=== PATIENT | female | born 1950 | race Caucasian/White ===

== ENCOUNTER 2019-08-23 09:58 | Observation (INO) ==
[2019-08-23 10:02] VITALS: BMI 16.9
[2019-08-23] MEDS ORDERED: XOPENEX 1.25 MG/3 ML NEBULE NEB ONE ×2 (10:21→10:28)
--- NOTE | 2019-08-23 10:30 | DR.NAUSEAF ---
HPI Time Seen Time Seen by Provider: 08/23/19 10:09 Primary Care Physician Primary Care Physician: NFD Complaints Chief Complaint:: PT. C/O NAUSEA/VOMITING INTERMITTENLY X 2 MONTHS. N/V AND ABDOMINAL PAIN BEGAN AGAIN ON THURSDAY. PT. C/O SHORTNESS OF BREATH AND COUGH X 2 WEEKS. PT. WAS TESTED FOR COVID-19 YESTERDAY. SPOUSE STATES SHE IS NOT GETTING ANY BETTER. PT. HAS BEEN TAKING NAUSEA MEDICATION WITH NO IMPROVEMENT. COVID-19 Coronavirus risk:travel/contact w/high risk person: No Has patient experienced Coronavirus symptoms: Yes Coronavirus symptoms experienced: Coughing and Shortness of Breath Source History Provided: Patient Mode of Arrival Mode of Arrival: Ambulatory Timing Onset of Chief Complaint: 06/24/19 PMH PMH Past Medical History: Yes Past Medical History: Anxiety, Depression, GERD and Hypertension Past Surgical History: Yes Surgical History: Hysterectomy Family History History of Family Medical Conditions: No Social History Does patient currently use any type of tobacco product: Yes Have you used tobacco products in the last 12 months: Yes Type of Tobacco Use: Cigarettes Does any household member use tobacco: Yes Alcohol Use: None Do you use any recreational Drugs:: No Lives With: Spouse Lives Where: Home Travel Risk Coronavirus risk:travel/contact w/high risk person: No Has patient experienced Coronavirus symptoms: Yes Coronavirus symptoms experienced: Coughing and Shortness of Breath Infectious screening In the last 2 months have you had wt loss of >10#?: NO Have you had fever, night sweats or hemotysis?: No Have you traveled outside the country in the last 6 months?: No Isolation: Droplet ROS Review of Systems Constitutional: Weakness Eyes: No Symptoms Reported ENTM: No Symptoms Reported Respiratoy: Non-Productive Cough Cardiovascular: No Symptoms Reported Gastrointestinal/Abdominal: No Symptoms Reported, See HPI, Abdominal Pain, Con stipation and Nausea Genitourinary: No Symptoms Reported Neurological: Depressed Musculoskeletal: No Symptoms Reported Integumentary: No Symptoms Reported Hematologic/Lymphatic: No Symptoms Reported Endocrine: No Symptoms Reported Psychiatric: No Symptoms Reported, See HPI, Anxiety, Hallucinations, Excessive crying, Suicidal and Other All Other Systems: Reviewed and Negative PE Vital Signs Vitals: Temperature 98.4 F Pulse Rate 83 Respiratory Rate 17 Blood Pressure [Left Arm] 139/78 Blood Pressure 140/76 O2 Sat by Pulse Oximetry 96 General General Appearance: Alert, In No Apparent Distress and Anxious Head Head Exam: Normal Inspection and Atraumatic Eyes Eye exam: Normal Appearance, PERRL and EOMI ENT ENT Exam: Normal Exam and Normal Oropharynx Neck Neck Exam: Normal Inspection, Full ROM and Trachea Midline Chest Chest Inspection: Normal Inspection and Symmetric Chest Wall Rise Respiratory Respiratory Exam: Normal Lung Sounds Bilat Respiratory Exam: Bilateral: Clear to Auscultation Cardiovascular Cardiovascular Exam: Regular Rate Abdominal Exam Abdominal Exam: Normal Inspection, Normal Bowel Sounds and Soft; negative Distention, Tenderness and Guarding Rectal Rectal Exam: Deferred External Exam: Female: Deferred : Speculum Exam (Female): Deferred : Bimanual Exam (female): Deferred Extremities Extremities Exam: Normal Inspection and Full ROM Back Back Exam: Normal Inspection Neurologic Neurological Exam: Alert, Oriented X3 and CN II-XII Intact Psychiatric Psychiatric Exam: Depressed Skin Skin Exam: Warm and Normal Color MDM Differential Diagnosis Differential Diagnosis: Considerations may Include:: Gastritis, Gastroenteritis, Inflammatory BD and Pancreatitis COURSE Reevaluation 1st: Improved 2nd: Unchanged 3rd: Unchanged Consultation Called: 13:49 Call Returned: 13:49 Consultation Comments: Case discussed with DR. JEREZ place in observation and get sonogram of GB. Give IVF Education/Counseling Education/Counseling: Patient and Family Educated On: Treatment and Diagnosis ROR Labs Reviewed Result Diagrams: 08/23/19 10:30 08/23/19 10:30 Laboratory: WBC 13.6 X10^3/uL (3.6-10.0) H 08/23/19 10:30 RBC 4.75 X10^6/uL (3.5-5.4) 08/23/19 10:30 Hgb 13.1 g/dL (12.0-16.0) 08/23/19 10:30 Hct 39.9 % (36.0-47.0) 08/23/19 10:30 MCV 84.1 fL (80.0-100.0) 08/23/19 10:30 MCH 27.6 pg (27.0-34.0) 08/23/19 10:30 MCHC 32.8 g/dL (33.0-35.0) L 08/23/19 10:30 RDW 16.7 % (11.6-16.5) H 08/23/19 10:30 Plt Count 499 X10^3/uL (150.0-450.0) H 08/23/19 10:30 MPV 6.8 fL (7.4-11.0) L 08/23/19 10:30 Neut % (Auto) 87.0 % (42.0-75.0) H 08/23/19 10:30 Lymph % (Auto) 7.2 % (21.0-51.0) L 08/23/19 10:30 [place] % (Auto) 5.4 % (0.0-13.0) 08/23/19 10:30 Eos % (Auto) 0.1 % (0.9-2.9) L 08/23/19 10:30 Baso % (Auto) 0.3 % (0.2-1.0) 08/23/19 10:30 Neut # (Auto) 11.8 x10^3/uL (2.2-4.8) H 08/23/19 10:30 Lymph # (Auto) 1.0 X10^3/uL (1.3-2.9) L 08/23/19 10:30 [place] # (Auto) 0.7 x10^3/uL (0.3-0.8) 08/23/19 10:30 Eos # (Auto) 0.0 x10^3/uL (0.0-0.2) 08/23/19 10:30 Baso # (Auto) 0.0 X10^3/uL (0.0-0.1) 08/23/19 10:30 Absolute Nucleated RBC 0.1 /100WBC 08/23/19 10:30 Sodium 136 mmol/L (136-145) 08/23/19 10:30 Corrected Sodium 137 mmol/L (136-145) 08/23/19 10:30 Potassium 3.4 mmol/L (3.5-5.1) L 08/23/19 10:30 Chloride 98 mmol/L (98-107) 08/23/19 10:30 Carbon Dioxide 32.8 mmol/L (21-32) H 08/23/19 10:30 BUN 13 mg/dL (7-18) 08/23/19 10:30 Creatinine 0.90 mg/dL (0.55-1.02) 08/23/19 10:30 Est GFR (MDRD) Af Amer > 60 (>60) 08/23/19 10:30 Est GFR (MDRD) Non-Af > 60 (>60) 08/23/19 10:30 Glucose 140 mg/dL (65-99) H 08/23/19 10:30 Calcium 9.0 mg/dL (8.5-10.1) 08/23/19 10:30 Corrected Calcium 9.6 mg/dL (8.5-10.1) 08/23/19 10:30 Total Bilirubin 0.10 mg/dL (0.2-1.0) L 08/23/19 10:30 AST 20 Units/L (15-37) 08/23/19 10:30 ALT 12 Units/L (12-78) 08/23/19 10:30 Alkaline Phosphatase 71 Units/L (46-116) 08/23/19 10:30 Total Protein 7.2 g/dL (6.4-8.2) 08/23/19 10:30 Albumin 3.3 g/dL (3.4-5.0) L 08/23/19 10:30 Globulin 3.9 g/dL (2.5-4.5) 08/23/19 10:30 Albumin/Globulin Ratio 0.8 Ratio (1.1-2.1) L 08/23/19 10:30 Acetaminophen 1.6 ug/mL (10-30) L 08/23/19 10:30 SARS-CoV-2 (PCR) Negative (NEGATIVE) 08/23/19 13:51 XRAY XRAY Interpreted by: Radiologist X-ray Results: chest; no acute disease CT abdo/pelvis: NO acute disease Opioid Opioid Risk Tool Age (Cedric box if 16-45): No History of Preadolescent Sexual Abuse: No Total: 0 Total Score Risk Category: Low Risk Copyright: Rahat WARNER predicting aberrant behaviors
[2019-08-23 10:41] LABS: BASOPHILS % (AUTO) 0.3 % (0.2-1.0); EOSINOPHILS % (AUTO) 0.1 % (0.9-2.9); HEMATOCRIT 39.9 % (36.0-47.0); HEMOGLOBIN 13.1 g/dL (12.0-16.0); LYMPHOCYTES % (AUTO) 7.2 % (21.0-51.0); MEAN CORPUSCULAR HEMOGLOBIN 27.6 pg (27.0-34.0); MEAN CORPUSCULAR HGB CONC 32.8 g/dL (33.0-35.0); MEAN CORPUSCULAR VOLUME 84.1 fL (80.0-100.0); MEAN PLATELET VOLUME 6.8 fL (7.4-11.0); MONOCYTES # (AUTO) 0.7 x10^3/uL (0.3-0.8); MONOCYTES % (AUTO) 5.4 % (0.0-13.0); NEUTROPHILS # (AUTO) 11.8 x10^3/uL (2.2-4.8); PLATELET COUNT 499 X10^3/uL (150.0-450.0); RED BLOOD COUNT 4.75 X10^6/uL (3.5-5.4); RED CELL DISTRIBUTION WIDTH 16.7 % (11.6-16.5); WHITE BLOOD COUNT 13.6 X10^3/uL (3.6-10.0)
[2019-08-23 10:49] LABS: ALANINE AMINOTRANSFERASE 12 Units/L (12-78); ALBUMIN 3.3 g/dL (3.4-5.0); ALKALINE PHOSPHATASE 71 Units/L (46-116); ASPARTATE AMINO TRANSFERASE 20 Units/L (15-37); BLOOD UREA NITROGEN 13 mg/dL (7-18); CARBON DIOXIDE 32.8 mmol/L (21-32); CHLORIDE 98 mmol/L (98-107); COR CA(FOR HYPOALB) 9.6 mg/dL (8.5-10.1); COR NA(FOR HYPERGLY) 137 mmol/L (136-145); SODIUM 136 mmol/L (136-145); TOTAL PROTEIN 7.2 g/dL (6.4-8.2); eGFR NON BLACK RACES > 60 (>60)
--- NOTE | 2019-08-23 10:54 | RAD ---
HISTORYN/V, ABD PAIN, SOB, COUGH X 2 WEEKS. TESTED FOR COVID-19 YESTERDAYSTUDYAP chestCOMPARISONNoneFINDINGSThe heart and mediastinum are unremarkable. There is no edema or effusion or congestion. No significant bony abnormality is demonstrated. There is a short linear horizontal density in the left mid lung peripherally.IMPRESSIONNo evidence for acute cardiopulmonary diseaseElectronically signed by: TEGAN STINSON (Aug 23, 2019 10:53:24)
--- NOTE | 2019-08-23 13:25 | CT ---
CT abdomen and pelvis with contrastIndication:ABD PAIN VOMITINGComparison:NoneTechnique: CT images of the abdomen and pelvis were obtained with IV contrast. Automatic exposure control was utilized.Findings:There is mild scarring of the lung bases. No dense infiltrate or pleural effusion. There is advanced discogenic degenerative change at L5-S1. There is grade 1 anterolisthesis of L4 on L5, without spondylolysis.The liver and spleen enhance normally. The gallbladder, incompletely distended stomach, pancreas, adrenals, and kidneys demonstrate no significant abnormality. No significant thickening or dilatation of the lower GI tract can be identified. The appendix is not definitely seen, but no marked pericecal inflammation to suggest acute appendicitis can be identified. The uterus is absent. No large pelvic mass or collection. The urinary bladder and rectum are grossly unremarkable. There is aortoiliac atherosclerosis, without aneurysm. No free fluid or adenopathy identified.Impression:No acute abnormality to account for patient's symptoms.Degenerative spine change, vascular calcification.Electronically signed by: BENEDICT SUE (Aug 23, 2019 13:24:34)
[2019-08-23] MEDS ORDERED: ZOFRAN INJ 4 MG VIAL IVP PRN (15:03)
[2019-08-23] MEDS ORDERED: NS 500 ML IV 500 ML IV ONE (15:11)
[2019-08-23] MEDS ORDERED: ZOFRAN INJ 4 MG VIAL IVP SCH (15:11)
[2019-08-23] MEDS: D5 1/2 NS 1000 ML 1,000 ML IV SCH ×2 (16:10→23:40)
--- NOTE | 2019-08-23 16:32 | US ---
HISTORYRight upper quadrant painSTUDYRight upper quadrant ultrasound and retroperitoneal aorta ultrasoundTECHNIQUEGrayscale images of the right upper quadrant were performed. Grayscale and color Doppler images of the aorta were performedFINDINGSThe liver is normal in echogenicity and measures in length 13.8 centimeters. The gallbladder is not significantly distended without gallstones. No wall thickening the common bile duct measures 0.15 centimeters. The Right kidney measures 11.2centimeters and demonstrates normal echogenicity without hydronephrosis.The IVC is patent. There is no focal dilatation of the abdominal aorta with atherosclerotic changes. The aorta measures 1.46 centimeters proximally, in the mid aspect 1.1 centimeters and distally 1.26 centimeter.IMPRESSIONNo sonographic evidence of cholelithiasis or cholecystitisNo focal aneurysm of the abdominal aorta.Electronically signed by: Nazia Michael (Aug 23, 2019 16:31:35)
[2019-08-23] MEDS ORDERED: PHENERGAN INJ 25 MG IM ONE (17:27)
[2019-08-23] MEDS: PROTONIX INJ 40 MG VIAL IVP SCH (21:15)
[2019-08-23] MEDS: DILAUDID INJ IVP PRN (21:15)
[2019-08-24] MEDS: DILAUDID INJ IVP PRN ×5 (01:38→20:46)
[2019-08-24] MEDS: D5 1/2 NS 1000 ML 1,000 ML IV SCH ×3 (01:38→18:06)
[2019-08-24 06:44] LABS: BASOPHILS % (AUTO) 0.4 % (0.2-1.0); EOSINOPHILS % (AUTO) 0.4 % (0.9-2.9); HEMATOCRIT 36.4 % (36.0-47.0); HEMOGLOBIN 11.9 g/dL (12.0-16.0); LYMPHOCYTES # (AUTO) 2.1 X10^3/uL (1.3-2.9); LYMPHOCYTES % (AUTO) 24.1 % (21.0-51.0); MEAN CORPUSCULAR HEMOGLOBIN 27.7 pg (27.0-34.0); MEAN CORPUSCULAR HGB CONC 32.9 g/dL (33.0-35.0); MEAN CORPUSCULAR VOLUME 84.3 fL (80.0-100.0); MONOCYTES # (AUTO) 0.6 x10^3/uL (0.3-0.8); MONOCYTES % (AUTO) 7.1 % (0.0-13.0); NEUTROPHILS # (AUTO) 6.1 x10^3/uL (2.2-4.8); PLATELET COUNT 406 X10^3/uL (150.0-450.0); RED BLOOD COUNT 4.31 X10^6/uL (3.5-5.4); RED CELL DISTRIBUTION WIDTH 16.4 % (11.6-16.5); WHITE BLOOD COUNT 8.9 X10^3/uL (3.6-10.0)
[2019-08-24 06:57] LABS: ALANINE AMINOTRANSFERASE 10 Units/L (12-78); ALBUMIN 2.9 g/dL (3.4-5.0); ALKALINE PHOSPHATASE 61 Units/L (46-116); ASPARTATE AMINO TRANSFERASE 16 Units/L (15-37); BLOOD UREA NITROGEN 8 mg/dL (7-18); CALCIUM 8.4 mg/dL (8.5-10.1); CARBON DIOXIDE 32.8 mmol/L (21-32); CHLORIDE 100 mmol/L (98-107); COR CA(FOR HYPOALB) 9.3 mg/dL (8.5-10.1); COR NA(FOR HYPERGLY) 136 mmol/L (136-145); CREATININE 0.66 mg/dL (0.55-1.02); SODIUM 136 mmol/L (136-145); TOTAL PROTEIN 6.3 g/dL (6.4-8.2); eGFR NON BLACK RACES > 60 (>60)
[2019-08-24] MEDS: PROTONIX INJ 40 MG VIAL IVP SCH ×2 (08:18→20:45)
[2019-08-24] MEDS ORDERED: NS 1000 ML 1,000 ML ONE (10:29)
[2019-08-24] MEDS ORDERED: DIPRIVAN VIAL IVP ONE (10:43)
[2019-08-24] MEDS ORDERED: DIPRIVAN VIAL 20 ML ONE (10:45)
[2019-08-24] MEDS: PHENERGAN INJ 25 MG IM PRN ×2 (11:38→18:13)
[2019-08-24] MEDS ORDERED: STERILE WATER IRRIGATION IR ONE (14:24)
[2019-08-24] MEDS ORDERED: K-DUR TAB 20 MEQ PO SCH (21:00)
[2019-08-25] MEDS: DILAUDID INJ IVP PRN ×2 (01:10→06:00)
[2019-08-25] MEDS: D5 1/2 NS 1000 ML 1,000 ML IV SCH ×2 (01:10→08:29)
[2019-08-25] MEDS: PROTONIX INJ 40 MG VIAL IVP SCH (08:30)
[2019-08-25] MEDS ORDERED: NORCO 5/325 MG TAB PO ONE (10:23)
[2019-08-25 11:55] VITALS: BP 143/72
== END 2019-08-25 11:30 | disposition home or self-care (01) ==
LOC: MED/SURG 09:58 → ER 09:58 → MED/SURG 15:26
PROVIDERS: ADMIT Surgery; ATTEND Surgery
DX: K25.3 Acute gastric ulcer without hemorrhage or perforation; R11.2 Nausea with vomiting, unspecified; R10.13 Epigastric pain; Z20.818 Contact with and (suspected) exposure to other bacterial communicable diseases; R06.02 Shortness of breath; K21.9 Gastro-esophageal reflux disease without esophagitis; I10 Essential (primary) hypertension; E86.0 Dehydration; K31.89 Other diseases of stomach and duodenum; R10.11 Right upper quadrant pain; F41.8 Other specified anxiety disorders; Z72.0 Tobacco use
CPT/HCPCS: 36415; 71010; 71045; 74177; 76705; 80053; 80307; 85025; 87635; 96360; 96361; 96365; 96372; 96374; 99284; A4217; A4222; C9113; G0378; J1170; J2405; J2550; J2704; J7030; S5010

== ENCOUNTER 2021-07-29 14:55 | Inpatient (IN) ==
[2021-07-29] MEDS ORDERED: ULTANE GAS IN ONE (16:27)
[2021-07-29] MEDS: D5 1/2 NS 1,000 ML 1,000 ML IV SCH (17:30)
[2021-07-29 18:04] VITALS: BMI 20.2
[2021-07-29 19:32] LABS: BASOPHILS # (AUTO) 0.1 X10^3/uL (0.0-0.1); BASOPHILS % (AUTO) 1.4 % (0.2-1.0); EOSINOPHILS # (AUTO) 0.1 x10^3/uL (0.0-0.2); EOSINOPHILS % (AUTO) 1.7 % (0.9-2.9); HEMATOCRIT 36.6 % (36.0-47.0); HEMOGLOBIN 12.1 g/dL (12.0-16.0); LYMPHOCYTES # (AUTO) 1.9 X10^3/uL (1.3-2.9); MEAN CORPUSCULAR HEMOGLOBIN 27.4 pg (27.0-34.0); MEAN CORPUSCULAR VOLUME 82.9 fL (80.0-100.0); MEAN PLATELET VOLUME 7.6 fL (7.4-11.0); MONOCYTES # (AUTO) 0.5 x10^3/uL (0.3-0.8); MONOCYTES % (AUTO) 7.7 % (0.0-13.0); NEUTROPHILS # (AUTO) 3.5 x10^3/uL (2.2-4.8); NEUTROPHILS % (AUTO) 57.2 % (42.0-75.0); RED BLOOD COUNT 4.41 X10^6/uL (3.5-5.4); WHITE BLOOD COUNT 6.1 X10^3/uL (3.6-10.0)
[2021-07-29 19:36] LABS: BLOOD UREA NITROGEN 13 mg/dL (7-18); CARBON DIOXIDE 28.5 mmol/L (21-32); CHLORIDE 103 mmol/L (98-107); CREATININE 0.68 mg/dL (0.55-1.02); SODIUM 142 mmol/L (136-145); eGFR NON BLACK RACES > 60 (>60)
[2021-07-29] MEDS: MORPHINE SULFATE INJ 2 MG INJ IVP PRN (19:59)
[2021-07-29] MEDS: PROTONIX INJ 40 MG VIAL IVP SCH (20:43)
[2021-07-30] MEDS: D5 1/2 NS 1,000 ML 1,000 ML IV SCH ×3 (00:47→16:28)
[2021-07-30] MEDS: MORPHINE SULFATE INJ 2 MG INJ IVP PRN ×4 (03:26→19:30)
[2021-07-30] MEDS: ZOFRAN INJ 4 MG VIAL IVP PRN ×2 (06:06→18:25)
[2021-07-30 06:25] LABS: BASOPHILS # (AUTO) 0.1 X10^3/uL (0.0-0.1); BASOPHILS % (AUTO) 1.6 % (0.2-1.0); EOSINOPHILS # (AUTO) 0.2 x10^3/uL (0.0-0.2); HEMATOCRIT 36.8 % (36.0-47.0); HEMOGLOBIN 12.2 g/dL (12.0-16.0); LYMPHOCYTES # (AUTO) 1.4 X10^3/uL (1.3-2.9); LYMPHOCYTES % (AUTO) 35.3 % (21.0-51.0); MEAN CORPUSCULAR HEMOGLOBIN 27.3 pg (27.0-34.0); MEAN CORPUSCULAR HGB CONC 33.1 g/dL (33.0-35.0); MEAN CORPUSCULAR VOLUME 82.5 fL (80.0-100.0); MEAN PLATELET VOLUME 7.6 fL (7.4-11.0); MONOCYTES # (AUTO) 0.3 x10^3/uL (0.3-0.8); MONOCYTES % (AUTO) 8.5 % (0.0-13.0); NEUTROPHILS % (AUTO) 50.6 % (42.0-75.0); RED BLOOD COUNT 4.46 X10^6/uL (3.5-5.4); RED CELL DISTRIBUTION WIDTH 17.2 % (11.6-16.5)
[2021-07-30] MEDS ORDERED: NS 100 ML IV 100 ML ONE (07:27)
[2021-07-30] MEDS: PROTONIX INJ 40 MG VIAL IVP SCH ×2 (08:47→20:24)
--- NOTE | 2021-07-30 12:11 | CT ---
HISTORYgastric outlet obstructionSTUDYABDOMEN/PELVIS WITH [id number]/02/2020TECHNIQUEAxial images through the abdomen and pelvis was performed after the administration of intravenous contrast oral contrast was also administered. CT scan was performed following ALARA (As low as Reasonably Achievable).Coronal and Sagittal reformatted images were performed.FINDINGSThe lung bases demonstrate atelectasis bilaterally, right more than left. The liver is normal, there is normal enhancement of the portal and the hepatic veins. The spleen is nonenlarged, the pancreas demonstrate no focal abnormalities, no gallstones, no intra or extrahepatic biliary dilatation.The stomach is no significant distende, d there is no adrenal masses. There are bilateral normal enhancing kidneys without hydronephrosis. No abnormal dilated small bowel loops, no evidence of colitis, no small bowel obstruction, the terminal ileum is unremarkable. No secondary signs of appendicitis.Pelvis no free fluid in the cul de sac, the uterus is not present, the urinary bladder is unremarkable, there is sigmoid colonic diverticulosis without diverticulitis, there is pelvic floor relaxation, no pelvic adenopathyBone windows no evidence of aggressive bone lesions. No acute fractures.IMPRESSIONNo acute intra-abdominal abnormality. No significant distension of the stomach, no evidence of a small-bowel obstruction, no free air or free fluid.Electronically signed by: Nazia Michael (July 30, 2021 12:09:46)
--- NOTE | 2021-07-30 17:35 | DR.PROGNOT ---
Hospital Progress Notes - Progress Note for Day of: Progress Note Date: 07/30/21 - Chief Complaint Chief Complaint: c/o epigastric and upper abdominal pain with nausea .. abdominal CT did not show any significant abnormality . - Past Medical Family Social History Past Med/Fam/Surg Hx: No changes since H&P Allergies: Allergies phenobarbital Adverse Reaction (Verified 10/15/20 07:50) RASH - Review Of Systems ROS: No change since H&P - Vital Signs Vital Signs: Temperature 98.2 F Pulse Rate [Brachial] 84 Respiratory Rate 20 Blood Pressure [Left Arm] 146/74 Blood Pressure 128/74 O2 Sat by Pulse Oximetry 92 - Physical Exam Oriented: Normal Eyes: Normal Ear: Normal Nose: Normal Respiratory: Normal Cardiovascular: Normal : Normal GI:Auscultation: Normal GI:Palpation: Normal GI: Tenderness: Diffuse (soft abdomen with upper tenderness ) Speech Pattern: Clear, Appropriate - Laboratory and Diagnostics Result Diagrams: 07/30/21 06:00 07/29/21 19:25 Labs: Laboratory WBC 4.0 X10^3/uL (3.6-10.0) 07/30/21 06:00 RBC 4.46 X10^6/uL (3.5-5.4) 07/30/21 06:00 Hgb 12.2 g/dL (12.0-16.0) 07/30/21 06:00 Hct 36.8 % (36.0-47.0) 07/30/21 06:00 MCV 82.5 fL (80.0-100.0) 07/30/21 06:00 MCH 27.3 pg (27.0-34.0) 07/30/21 06:00 MCHC 33.1 g/dL (33.0-35.0) 07/30/21 06:00 RDW 17.2 % (11.6-16.5) H 07/30/21 06:00 Plt Count 243 X10^3/uL (150.0-450.0) 07/30/21 06:00 MPV 7.6 fL (7.4-11.0) 07/30/21 06:00 Neut % (Auto) 50.6 % (42.0-75.0) 07/30/21 06:00 Lymph % (Auto) 35.3 % (21.0-51.0) 07/30/21 06:00 [place] % (Auto) 8.5 % (0.0-13.0) 07/30/21 06:00 Eos % (Auto) 4.0 % (0.9-2.9) H 07/30/21 06:00 Baso % (Auto) 1.6 % (0.2-1.0) H 07/30/21 06:00 Neut # (Auto) 2.0 x10^3/uL (2.2-4.8) L 07/30/21 06:00 Lymph # (Auto) 1.4 X10^3/uL (1.3-2.9) 07/30/21 06:00 [place] # (Auto) 0.3 x10^3/uL (0.3-0.8) 07/30/21 06:00 Eos # (Auto) 0.2 x10^3/uL (0.0-0.2) 07/30/21 06:00 Baso # (Auto) 0.1 X10^3/uL (0.0-0.1) 07/30/21 06:00 Absolute Nucleated RBC 0.0 /100WBC 07/30/21 06:00 Sodium 142 mmol/L (136-145) 07/29/21 19:25 Corrected Sodium TNP 07/29/21 19:25 Potassium 4.0 mmol/L (3.5-5.1) 07/29/21 19:25 Chloride 103 mmol/L (98-107) 07/29/21 19:25 Carbon Dioxide 28.5 mmol/L (21-32) 07/29/21 19:25 BUN 13 mg/dL (7-18) 07/29/21 19:25 Creatinine 0.68 mg/dL (0.55-1.02) 07/29/21 19:25 Est GFR (MDRD) Af Amer > 60 (>60) 07/29/21 19:25 Est GFR (MDRD) Non-Af > 60 (>60) 07/29/21 19:25 Glucose 106 mg/dL (65-99) H 07/29/21 19:25 Calcium 9.0 mg/dL (8.5-10.1) 07/29/21 19:25 - Assessment and Plan 1: chronic and acute PUD with partial gastric outlet obstruction . for EGD in Am . on IV Protonix .. NPO for now .
[2021-07-30] MEDS: DILAUDID INJ IVP PRN (20:24)
[2021-07-30 22:27] LABS: ALANINE AMINOTRANSFERASE < 6 Units/L (12-78); ALBUMIN 3.4 g/dL (3.4-5.0); ALKALINE PHOSPHATASE 65 Units/L (46-116); ASPARTATE AMINO TRANSFERASE 19 Units/L (15-37); TOTAL PROTEIN 6.6 g/dL (6.4-8.2)
[2021-07-31] MEDS: DILAUDID INJ IVP PRN ×6 (00:30→23:51)
[2021-07-31] MEDS: ZOFRAN INJ 4 MG VIAL IVP PRN ×2 (01:05→19:50)
[2021-07-31] MEDS: D5 1/2 NS 1,000 ML 1,000 ML IV SCH ×4 (01:05→23:52)
[2021-07-31 07:25] LABS: BASOPHILS # (AUTO) 0.1 X10^3/uL (0.0-0.1); BASOPHILS % (AUTO) 0.9 % (0.2-1.0); EOSINOPHILS % (AUTO) 0.4 % (0.9-2.9); HEMATOCRIT 36.8 % (36.0-47.0); HEMOGLOBIN 11.9 g/dL (12.0-16.0); LYMPHOCYTES # (AUTO) 0.8 X10^3/uL (1.3-2.9); LYMPHOCYTES % (AUTO) 11.3 % (21.0-51.0); MEAN CORPUSCULAR HEMOGLOBIN 27.2 pg (27.0-34.0); MEAN CORPUSCULAR HGB CONC 32.5 g/dL (33.0-35.0); MEAN CORPUSCULAR VOLUME 83.8 fL (80.0-100.0); MONOCYTES # (AUTO) 0.6 x10^3/uL (0.3-0.8); MONOCYTES % (AUTO) 8.1 % (0.0-13.0); NEUTROPHILS # (AUTO) 5.7 x10^3/uL (2.2-4.8); NEUTROPHILS % (AUTO) 79.3 % (42.0-75.0); RED BLOOD COUNT 4.39 X10^6/uL (3.5-5.4); RED CELL DISTRIBUTION WIDTH 17.2 % (11.6-16.5); WHITE BLOOD COUNT 7.2 X10^3/uL (3.6-10.0)
[2021-07-31 07:32] LABS: ALANINE AMINOTRANSFERASE 6 Units/L (12-78); ALBUMIN 3.5 g/dL (3.4-5.0); ALKALINE PHOSPHATASE 69 Units/L (46-116); ASPARTATE AMINO TRANSFERASE 18 Units/L (15-37); BLOOD UREA NITROGEN 5 mg/dL (7-18); CALCIUM 8.3 mg/dL (8.5-10.1); CARBON DIOXIDE 28.2 mmol/L (21-32); CHLORIDE 104 mmol/L (98-107); COR NA(FOR HYPERGLY) 141 mmol/L (136-145); CREATININE 0.71 mg/dL (0.55-1.02); SODIUM 140 mmol/L (136-145); eGFR NON BLACK RACES > 60 (>60)
[2021-07-31] MEDS ORDERED: NS 1,000 ML IV 1,000 ML ONE (08:49)
[2021-07-31] MEDS ORDERED: DIPRIVAN VIAL 20 ML ONE (08:54)
[2021-07-31] MEDS ORDERED: KETAMINE HCL ONE (08:57)
[2021-07-31] MEDS ORDERED: XYLOCAINE 2 % (PLAIN) ONE (09:00)
[2021-07-31] MEDS ORDERED: ZOFRAN INJ 4 MG VIAL ONE (09:14)
[2021-07-31] MEDS: PROTONIX INJ 40 MG VIAL IVP SCH ×2 (09:27→20:19)
[2021-07-31] MEDS: CARAFATE PO SCH ×2 (13:16→21:50)
[2021-07-31] MEDS: DUONEB 0.5 MG/3 MG (3 mL) NEB SCH ×3 (13:20→20:35)
--- NOTE | 2021-07-31 15:26 | RAD ---
HISTORYPreop ulcer removalSTUDYChest PA and lateral viewsCOMPARISONJune 2019 report onlyFINDINGSCardiac size and contour normal with no evidence for acute pulmonary, hilar, mediastinal or pleural abnormality. No airspace disease, pneumonia or CHF demonstrated. Pulmonary hyperaeration and expansion of retrosternal space.IMPRESSIONNo acute chest findings.Electronically signed by: ZONAI ISLAS (July 31, 2021 15:23:44)
[2021-07-31 23:56] LABS: BILIRUBIN,URINE NEGATIVE (NEGATIVE); BLOOD/HEMOGLOBIN,URINE NEGATIVE (NEGATIVE); GLUCOSE, URINE NEGATIVE (NEGATIVE); KETONES,URINE NEGATIVE (NEGATIVE); LEUKOCYTE ESTERASE ,URINE NEGATIVE (NEGATIVE); NITRITES,URINE NEGATIVE (NEGATIVE); PH,URINE 6.5 (5.0 - 8.0); PROTEIN,URINE NEGATIVE (NEGATIVE); UROBILINOGEN,URINE NORMAL (NORMAL)
[2021-07-31 23:58] LABS: APPEARANCE,URINE CLEAR (CLEAR); COLOR,URINE STRAW (YELLOW)
[2021-08-01] MEDS: DUONEB 0.5 MG/3 MG (3 mL) NEB SCH ×6 (01:06→21:00)
[2021-08-01] MEDS: NICOTINE PATCH TD SCH ×3 (03:03→11:33)
[2021-08-01] MEDS: DILAUDID INJ IVP PRN ×4 (04:33→20:17)
[2021-08-01] MEDS: CARAFATE PO SCH ×3 (05:20→22:10)
[2021-08-01 07:29] LABS: BASOPHILS % (AUTO) 0.7 % (0.2-1.0); EOSINOPHILS # (AUTO) 0.1 x10^3/uL (0.0-0.2); EOSINOPHILS % (AUTO) 1.5 % (0.9-2.9); HEMATOCRIT 33.1 % (36.0-47.0); LYMPHOCYTES # (AUTO) 0.9 X10^3/uL (1.3-2.9); LYMPHOCYTES % (AUTO) 13.4 % (21.0-51.0); MEAN CORPUSCULAR HEMOGLOBIN 27.4 pg (27.0-34.0); MEAN CORPUSCULAR HGB CONC 33.1 g/dL (33.0-35.0); MEAN CORPUSCULAR VOLUME 82.7 fL (80.0-100.0); MONOCYTES # (AUTO) 0.5 x10^3/uL (0.3-0.8); MONOCYTES % (AUTO) 7.5 % (0.0-13.0); NEUTROPHILS # (AUTO) 5.1 x10^3/uL (2.2-4.8); NEUTROPHILS % (AUTO) 76.9 % (42.0-75.0); RED CELL DISTRIBUTION WIDTH 16.8 % (11.6-16.5); WHITE BLOOD COUNT 6.6 X10^3/uL (3.6-10.0)
[2021-08-01 07:33] LABS: ALANINE AMINOTRANSFERASE 6 Units/L (12-78); ASPARTATE AMINO TRANSFERASE 23 Units/L (15-37); BLOOD UREA NITROGEN 3 mg/dL (7-18); CALCIUM 8.6 mg/dL (8.5-10.1); CHLORIDE 104 mmol/L (98-107); COR NA(FOR HYPERGLY) 139 mmol/L (136-145); CREATININE 0.57 mg/dL (0.55-1.02); SODIUM 139 mmol/L (136-145); eGFR NON BLACK RACES > 60 (>60)
[2021-08-01 07:34] LABS: ALBUMIN 3.3 g/dL (3.4-5.0); ALKALINE PHOSPHATASE 72 Units/L (46-116); COR CA(FOR HYPOALB) 9.2 mg/dL (8.5-10.1); TOTAL PROTEIN 6.7 g/dL (6.4-8.2)
[2021-08-01] MEDS ORDERED: MICRO K EXTEN CAP 10 MEQ PO PRN (08:18)
[2021-08-01] MEDS ORDERED: POTASSIUM CHL 40 MEQ/NS 0.45% 500 ML IV PRN (08:18)
[2021-08-01] MEDS ORDERED: POTASSIUM CHL 60 MEQ/NS 0.45% 500 ML IV PRN (08:18)
[2021-08-01] MEDS ORDERED: K-DUR TAB 20 MEQ PO PRN (08:18)
[2021-08-01] MEDS ORDERED: POTASSIUM CHLORIDE LIQ 20 MEQ UDC PO PRN (08:18)
[2021-08-01] MEDS ORDERED: KLOR-CON PO PRN (08:18)
--- NOTE | 2021-08-01 09:14 | DR.PROGNOT ---
Hospital Progress Notes - Progress Note for Day of: Progress Note Date: 08/01/21 - Chief Complaint Chief Complaint: c/o epigastric and upper abdominal pain with nausea and food intolerance . vomited her liquid diet .. no SOB, no chest pain .. EGD showed distal gastric and duodenal ulcers with partial obstruction .. - Past Medical Family Social History Past Med/Fam/Surg Hx: No changes since H&P Allergies: Allergies phenobarbital Adverse Reaction (Verified 10/15/20 07:50) RASH - Review Of Systems ROS: No change since H&P - Vital Signs Vital Signs: Temperature 98.8 F Pulse Rate [Brachial] 93 Pulse Rate 100 Respiratory Rate 20 Blood Pressure [Left Arm] 136/67 Blood Pressure 128/74 O2 Sat by Pulse Oximetry 93 - Physical Exam Oriented: Normal Eyes: Normal Ear: Normal Nose: Normal Respiratory: Normal Cardiovascular: Normal : Normal GI:Auscultation: Normal GI:Palpation: Normal GI: Tenderness: Diffuse (soft abdomen with moderate upper abdominal tenderness , ) Speech Pattern: Clear, Appropriate - Laboratory and Diagnostics Result Diagrams: 08/01/21 06:56 08/01/21 06:56 Labs: Laboratory WBC 6.6 X10^3/uL (3.6-10.0) 08/01/21 06:56 WBC Cancelled 08/01/21 06:56 RBC 4.00 X10^6/uL (3.5-5.4) 08/01/21 06:56 RBC Cancelled 08/01/21 06:56 Hgb 11.0 g/dL (12.0-16.0) L 08/01/21 06:56 Hgb Cancelled 08/01/21 06:56 Hct 33.1 % (36.0-47.0) L 08/01/21 06:56 Hct Cancelled 08/01/21 06:56 MCV 82.7 fL (80.0-100.0) 08/01/21 06:56 MCV Cancelled 08/01/21 06:56 MCH 27.4 pg (27.0-34.0) 08/01/21 06:56 MCH Cancelled 08/01/21 06:56 MCHC 33.1 g/dL (33.0-35.0) 08/01/21 06:56 MCHC Cancelled 08/01/21 06:56 RDW 16.8 % (11.6-16.5) H 08/01/21 06:56 RDW Cancelled 08/01/21 06:56 Plt Count 176 X10^3/uL (150.0-450.0) 08/01/21 06:56 Plt Count Cancelled 08/01/21 06:56 MPV 8.0 fL (7.4-11.0) 08/01/21 06:56 MPV Cancelled 08/01/21 06:56 Neut % (Auto) 76.9 % (42.0-75.0) H 08/01/21 06:56 Neut % (Auto) Cancelled 08/01/21 06:56 Lymph % (Auto) 13.4 % (21.0-51.0) L 08/01/21 06:56 Lymph % (Auto) Cancelled 08/01/21 06:56 [place] % (Auto) 7.5 % (0.0-13.0) 08/01/21 06:56 [place] % (Auto) Cancelled 08/01/21 06:56 Eos % (Auto) 1.5 % (0.9-2.9) 08/01/21 06:56 Eos % (Auto) Cancelled 08/01/21 06:56 Baso % (Auto) 0.7 % (0.2-1.0) 08/01/21 06:56 Baso % (Auto) Cancelled 08/01/21 06:56 Neut # (Auto) 5.1 x10^3/uL (2.2-4.8) H 08/01/21 06:56 Neut # (Auto) Cancelled 08/01/21 06:56 Lymph # (Auto) 0.9 X10^3/uL (1.3-2.9) L 08/01/21 06:56 Lymph # (Auto) Cancelled 08/01/21 06:56 [place] # (Auto) 0.5 x10^3/uL (0.3-0.8) 08/01/21 06:56 [place] # (Auto) Cancelled 08/01/21 06:56 Eos # (Auto) 0.1 x10^3/uL (0.0-0.2) 08/01/21 06:56 Eos # (Auto) Cancelled 08/01/21 06:56 Baso # (Auto) 0.0 X10^3/uL (0.0-0.1) 08/01/21 06:56 Baso # (Auto) Cancelled 08/01/21 06:56 Absolute Nucleated RBC 0.1 /100WBC 08/01/21 06:56 Absolute Nucleated RBC Cancelled 08/01/21 06:56 Sodium 139 mmol/L (136-145) 08/01/21 06:56 Sodium Cancelled 08/01/21 06:56 Corrected Sodium 139 mmol/L (136-145) 08/01/21 06:56 Corrected Sodium Cancelled 08/01/21 06:56 Potassium 3.0 mmol/L (3.5-5.1) L 08/01/21 06:56 Potassium Cancelled 08/01/21 06:56 Chloride 104 mmol/L (98-107) 08/01/21 06:56 Chloride Cancelled 08/01/21 06:56 Carbon Dioxide 28.0 mmol/L (21-32) 08/01/21 06:56 Carbon Dioxide Cancelled 08/01/21 06:56 BUN 3 mg/dL (7-18) L 08/01/21 06:56 BUN Cancelled 08/01/21 06:56 Creatinine 0.57 mg/dL (0.55-1.02) 08/01/21 06:56 Creatinine Cancelled 08/01/21 06:56 Est GFR (MDRD) Af Amer > 60 (>60) 08/01/21 06:56 Est GFR (MDRD) Af Amer Cancelled 08/01/21 06:56 Est GFR (MDRD) Non-Af > 60 (>60) 08/01/21 06:56 Est GFR (MDRD) Non-Af Cancelled 08/01/21 06:56 Glucose 117 mg/dL (65-99) H 08/01/21 06:56 Glucose Cancelled 08/01/21 06:56 POC Glucose (mg/dL) 76 mg/dL (65-99) 08/01/21 06:19 Calcium 8.6 mg/dL (8.5-10.1) 08/01/21 06:56 Calcium Cancelled 08/01/21 06:56 Corrected Calcium 9.2 mg/dL (8.5-10.1) 08/01/21 06:56 Corrected Calcium Cancelled 08/01/21 06:56 Magnesium 1.8 mg/dL (1.7-2.9) 08/01/21 06:56 Total Bilirubin 0.20 mg/dL (0.2-1.0) 08/01/21 06:56 Total Bilirubin Cancelled 08/01/21 06:56 AST 23 Units/L (15-37) 08/01/21 06:56 AST Cancelled 08/01/21 06:56 ALT 6 Units/L (12-78) L 08/01/21 06:56 ALT Cancelled 08/01/21 06:56 Alkaline Phosphatase 72 Units/L (46-116) 08/01/21 06:56 Alkaline Phosphatase Cancelled 08/01/21 06:56 Total Protein 6.7 g/dL (6.4-8.2) 08/01/21 06:56 Total Protein Cancelled 08/01/21 06:56 Albumin 3.3 g/dL (3.4-5.0) L 08/01/21 06:56 Albumin Cancelled 08/01/21 06:56 Globulin 3.4 g/dL (2.5-4.5) 08/01/21 06:56 Globulin Cancelled 08/01/21 06:56 Albumin/Globulin Ratio 1.0 Ratio (1.1-2.1) L 08/01/21 06:56 Albumin/Globulin Ratio Cancelled 08/01/21 06:56 Specimen Type Clean catch urine 07/31/21 23:29 Urine Color Straw (YELLOW) 07/31/21 23:29 Urine Appearance Clear (CLEAR) 07/31/21 23: Urine pH 6.5 (5.0 - 8.0) 07/31/21 23:29 Ur Specific Odd 1.010 (1.000-1.030) 07/31/21 23:29 Urine Protein Negative (NEGATIVE) 07/31/21 23: Urine Glucose (UA) Negative (NEGATIVE) 07/31/21 23: Urine Ketones Negative (NEGATIVE) 07/31/21 23: Urine Blood Negative (NEGATIVE) 07/31/21 23: Urine Nitrite Negative (NEGATIVE) 07/31/21 23: Urine Bilirubin Negative (NEGATIVE) 07/31/21 23: Urine Urobilinogen Normal (NORMAL) 05/11/22 23:29 Ur Leukocyte Esterase Negative (NEGATIVE) 07/31/21 23:29 Tissue Pathology To follow 07/31/21 09:00 - Assessment and Plan 1: intractable PUD . partial gastric outlet obstruction .. chronic smoker withmoderate COPD . to obgtain medical clearance and possible surgery . for echocardiogram today ..
[2021-08-01] MEDS: PROTONIX INJ 40 MG VIAL IVP SCH ×2 (09:56→20:16)
[2021-08-01] MEDS: ZOFRAN INJ 4 MG VIAL IVP PRN (10:00)
[2021-08-01] MEDS: D5 1/2 NS 1,000 ML 1,000 ML IV SCH ×3 (10:04→23:57)
[2021-08-01] MEDS: MAGNESIUM SULFATE 1 GRAM/100 mL PREMIX 1 G/100 ML BAG IV PRN ×2 (11:32→12:37)
[2021-08-01 13:41] LABS: ABG ALLEN TEST POS; ABG BASE EXCESS 4.3 mmol/L (-2.0-2.0); ABG HCO3 29.2 mmol/L (22-26)
--- NOTE | 2021-08-01 15:45 | DR.H&P ---
H&P History & Physical for Day of: H&P Date: 07/31/21 Chief Complaint Chief Complaint: Medical clearance for gastrectomy Allergies Allergies Allergy/AdvReac Type Severity Reaction Status Date / Time phenobarbital AdvReac RASH Verified 10/15/20 07:50 History of Present Illness History of Present Illness: This is a pleasant 70-year-old white female whom I was consulted about for medical clearance for a gastrectomy later this week. I see that she already has a CBC and a CMP ordered and they are within normal limits. I will go ahead and order a chest x-ray PA and lateral, urinalysis and EKG for further review. She does have a history of anxiety and depression as well as acid reflux and history of hypertension. She does report a cardiac stress test that was normal approximately 2 years ago as well. Past Medical History Past Medical History: Anxiety, Depression, GERD and Hypertension Past Surgical History Surgical History: Hysterectomy Family History Family Medical History: Cancer, [place], Coronary Artery Disease and Heart Failure Social History Does patient currently use any type of tobacco product: Yes Have you used tobacco products in the last 12 months: Yes Type of Tobacco Use: Cigarettes Packs per day or dips/chews per day: 1-1.5 Alcohol Use: Occasionally Drug Use: None Medications Home Medications: phenobarbital Adverse Reaction (Verified 10/15/20 07:50) RASH CONTINUE taking the following medications dicyclomine 10 mg PO QID 07/29/21 [History] ondansetron 4 mg PO Q6H PRN 07/29/21 [History] Labs Result Diagrams: 08/01/21 06:56 08/01/21 14:35 Labs: Laboratory WBC 6.6 X10^3/uL (3.6-10.0) 08/01/21 06:56 WBC Cancelled 08/01/21 06:56 RBC 4.00 X10^6/uL (3.5-5.4) 08/01/21 06:56 RBC Cancelled 08/01/21 06:56 Hgb 11.0 g/dL (12.0-16.0) L 08/01/21 06:56 Hgb Cancelled 08/01/21 06:56 Hct 33.1 % (36.0-47.0) L 08/01/21 06:56 Hct Cancelled 08/01/21 06:56 MCV 82.7 fL (80.0-100.0) 08/01/21 06:56 MCV Cancelled 08/01/21 06:56 MCH 27.4 pg (27.0-34.0) 08/01/21 06:56 MCH Cancelled 08/01/21 06:56 MCHC 33.1 g/dL (33.0-35.0) 08/01/21 06:56 MCHC Cancelled 08/01/21 06:56 RDW 16.8 % (11.6-16.5) H 08/01/21 06:56 RDW Cancelled 08/01/21 06:56 Plt Count 176 X10^3/uL (150.0-450.0) 08/01/21 06:56 Plt Count Cancelled 08/01/21 06:56 MPV 8.0 fL (7.4-11.0) 08/01/21 06:56 MPV Cancelled 08/01/21 06:56 Neut % (Auto) 76.9 % (42.0-75.0) H 08/01/21 06:56 Neut % (Auto) Cancelled 08/01/21 06:56 Lymph % (Auto) 13.4 % (21.0-51.0) L 08/01/21 06:56 Lymph % (Auto) Cancelled 08/01/21 06:56 [place] % (Auto) 7.5 % (0.0-13.0) 08/01/21 06:56 [place] % (Auto) Cancelled 08/01/21 06:56 Eos % (Auto) 1.5 % (0.9-2.9) 08/01/21 06:56 Eos % (Auto) Cancelled 08/01/21 06:56 Baso % (Auto) 0.7 % (0.2-1.0) 08/01/21 06:56 Baso % (Auto) Cancelled 08/01/21 06:56 Neut # (Auto) 5.1 x10^3/uL (2.2-4.8) H 08/01/21 06:56 Neut # (Auto) Cancelled 08/01/21 06:56 Lymph # (Auto) 0.9 X10^3/uL (1.3-2.9) L 08/01/21 06:56 Lymph # (Auto) Cancelled 08/01/21 06:56 [place] # (Auto) 0.5 x10^3/uL (0.3-0.8) 08/01/21 06:56 [place] # (Auto) Cancelled 08/01/21 06:56 Eos # (Auto) 0.1 x10^3/uL (0.0-0.2) 08/01/21 06:56 Eos # (Auto) Cancelled 08/01/21 06:56 Baso # (Auto) 0.0 X10^3/uL (0.0-0.1) 08/01/21 06:56 Baso # (Auto) Cancelled 08/01/21 06:56 Absolute Nucleated RBC 0.1 /100WBC 08/01/21 06:56 Absolute Nucleated RBC Cancelled 08/01/21 06:56 Sample Site Lr 08/01/21 13:36 ABG pH 7.430 (7.35-7.45) 08/01/21 13:36 ABG pCO2 44.0 mmHg (35.0-45.0) 08/01/21 13:36 ABG pO2 66.0 mmHg (80.0-100.0) L 08/01/21 13:36 ABG HCO3 29.2 mmol/L (22-26) H 08/01/21 13:36 ABG O2 Saturation 93.0 % (90-100) 08/01/21 13:36 ABG Base Excess 4.3 mmol/L (-2.0-2.0) H 08/01/21 13:36 Jacques Test Pos 08/01/21 13:36 A-a Gradient 29.0 mmHg 08/01/21 13:36 FiO2 21.0 08/01/21 13:36 Blood Gas Comments Pt gino well cdn 08/01/21 13:36 Sodium 139 mmol/L (136-145) 08/01/21 06:56 Sodium Cancelled 08/01/21 06:56 Corrected Sodium 139 mmol/L (136-145) 08/01/21 06:56 Corrected Sodium Cancelled 08/01/21 06:56 Potassium 4.2 mmol/L (3.5-5.1) 08/01/21 14:35 Chloride 104 mmol/L (98-107) 08/01/21 06:56 Chloride Cancelled 08/01/21 06:56 Carbon Dioxide 28.0 mmol/L (21-32) 08/01/21 06:56 Carbon Dioxide Cancelled 08/01/21 06:56 BUN 3 mg/dL (7-18) L 08/01/21 06:56 BUN Cancelled 08/01/21 06:56 Creatinine 0.57 mg/dL (0.55-1.02) 08/01/21 06:56 Creatinine Cancelled 08/01/21 06:56 Est GFR (MDRD) Af Amer > 60 (>60) 08/01/21 06:56 Est GFR (MDRD) Af Amer Cancelled 08/01/21 06:56 Est GFR (MDRD) Non-Af > 60 (>60) 08/01/21 06:56 Est GFR (MDRD) Non-Af Cancelled 08/01/21 06:56 Glucose 117 mg/dL (65-99) H 08/01/21 06:56 Glucose Cancelled 08/01/21 06:56 POC Glucose (mg/dL) 76 mg/dL (65-99) 08/01/21 06:19 Calcium 8.6 mg/dL (8.5-10.1) 08/01/21 06:56 Calcium Cancelled 08/01/21 06:56 Corrected Calcium 9.2 mg/dL (8.5-10.1) 08/01/21 06:56 Corrected Calcium Cancelled 08/01/21 06:56 Magnesium 1.8 mg/dL (1.7-2.9) 08/01/21 06:56 Total Bilirubin 0.20 mg/dL (0.2-1.0) 08/01/21 06:56 Total Bilirubin Cancelled 08/01/21 06:56 AST 23 Units/L (15-37) 08/01/21 06:56 AST Cancelled 08/01/21 06:56 ALT 6 Units/L (12-78) L 08/01/21 06:56 ALT Cancelled 08/01/21 06:56 Alkaline Phosphatase 72 Units/L (46-116) 08/01/21 06:56 Alkaline Phosphatase Cancelled 08/01/21 06:56 Total Protein 6.7 g/dL (6.4-8.2) 08/01/21 06:56 Total Protein Cancelled 08/01/21 06:56 Albumin 3.3 g/dL (3.4-5.0) L 08/01/21 06:56 Albumin Cancelled 08/01/21 06:56 Globulin 3.4 g/dL (2.5-4.5) 08/01/21 06:56 Globulin Cancelled 08/01/21 06:56 Albumin/Globulin Ratio 1.0 Ratio (1.1-2.1) L 08/01/21 06:56 Albumin/Globulin Ratio Cancelled 08/01/21 06:56 Specimen Type Clean catch urine 07/31/21 23:29 Urine Color Straw (YELLOW) 07/31/21 23:29 Urine Appearance Clear (CLEAR) 07/31/21 23:29 Urine pH 6.5 (5.0 - 8.0) 07/31/21 23:29 Ur Specific [place] 1.010 (1.000-1.030) 07/31/21 23:29 Urine Protein Negative (NEGATIVE) 07/31/21 23:29 Urine Glucose (UA) Negative (NEGATIVE) 07/31/21 23:29 Urine Ketones Negative (NEGATIVE) 07/31/21 23:29 Urine Blood Negative (NEGATIVE) 07/31/21 23:29 Urine Nitrite Negative (NEGATIVE) 07/31/21 23:29 Urine Bilirubin Negative (NEGATIVE) 07/31/21 23:29 Urine Urobilinogen Normal (NORMAL) 07/31/21 23:29 Ur Leukocyte Esterase Negative (NEGATIVE) 07/31/21 23:29 Tissue Pathology To follow 07/31/21 09:00 Review of Systems Constitutional: No Symptoms Reported Eyes: No Symptoms Reported ENT: No Symptoms Reported Respiratory: No Symptoms Reported Cardiovascular: No Symptoms Reported Gastrointestinal: Nausea and Abdominal Pain Genitourinary: No Symptoms Reported Musculoskeletal: No Symptoms Reported Skin: No Symptoms Reported Neurological: No Symptoms Reported Physical Exam Vital Signs: Temperature 98.5 F Pulse Rate [Brachial] 105 Pulse Rate 100 Respiratory Rate 20 Blood Pressure [Left Arm] 169/78 Blood Pressure 128/74 O2 Sat by Pulse Oximetry 97 Oriented: Normal, Time, Person and Place Eyes: Normal Nose: Normal Respiratory: Clear Throughout Cardiovascular: Normal : Normal Auscultation: Bowel Sounds: Normal Palpation: Normal Tenderness: Epigastric Skin: Normal Musculoskeletal: Normal Psychiatric: Normal Mood Description: Calm Affect: Normal Speech Pattern: Clear and Appropriate Assessment/Plan (1) Preoperative clearance: Status: Acute Plan: CBC and CMP are within normal limits. I will go ahead and add a PA and lateral chest x-ray as well as a urinalysis and EKG for further review. Review H&P Reviewed: Yes Patient was examined?: Yes
--- NOTE | 2021-08-01 15:55 | PCM.PROG ---
Progress Note Progress Note for Day of Date of Exam: 08/01/21 Subjective Subjective: The patient is doing well this morning she reports. It is noted her potassium is low this morning at 3.0. Her chest x-ray was within normal limits as well. Urinalysis is normal as well. EKG shows no lateral or inferior ischemia. There is a question of concern about possible anterolateral ischemia on the EKG but I believe this is being over read by the computer. Past Medical Family Social History Past Med/Fam/Surg Hx: No changes since H&P Allergies: Allergies phenobarbital Adverse Reaction (Verified 10/15/20 07:50) RASH Review of Systems ROS: No change since H&P Vital Signs and I&O's Vital Signs: Temperature 98.5 F Pulse Rate [Brachial] 105 Pulse Rate 100 Respiratory Rate 20 Blood Pressure [Left Arm] 169/78 Blood Pressure 128/74 O2 Sat by Pulse Oximetry 97 Intake and Output: Intake & Output 07/30/21 07/31/21 08/01/21 08/02/21 11:59 11:59 11:59 11:59 Intake Total 1345 / 1345 1711 / 1711 4792 / 4792 350 / 350 Balance 1345 / 1345 1711 / 1711 4792 / 4792 350 / 350 Physical Exam Oriented: Normal, Time, Person and Place Eyes: Normal Ear: Normal Nose: Normal Respiratory: Normal Cardiovascular: Normal : Normal Auscultation: Bowel Sounds: Normal Tenderness: Epigastric Skin: Normal Musculoskeletal: Normal Psychiatric: Normal Mood Description: Calm Affect: Normal Speech Pattern: Clear and Appropriate Laboratory and Diagnostics Result Diagrams: 08/01/21 06:56 08/01/21 14:35 Labs: Laboratory WBC 6.6 X10^3/uL (3.6-10.0) 08/01/21 06:56 WBC Cancelled 08/01/21 06:56 RBC 4.00 X10^6/uL (3.5-5.4) 08/01/21 06:56 RBC Cancelled 08/01/21 06:56 Hgb 11.0 g/dL (12.0-16.0) L 08/01/21 06:56 Hgb Cancelled 08/01/21 06:56 Hct 33.1 % (36.0-47.0) L 08/01/21 06:56 Hct Cancelled 08/01/21 06:56 MCV 82.7 fL (80.0-100.0) 08/01/21 06:56 MCV Cancelled 08/01/21 06:56 MCH 27.4 pg (27.0-34.0) 08/01/21 06:56 MCH Cancelled 08/01/21 06:56 MCHC 33.1 g/dL (33.0-35.0) 08/01/21 06:56 MCHC Cancelled 08/01/21 06:56 RDW 16.8 % (11.6-16.5) H 08/01/21 06:56 RDW Cancelled 08/01/21 06:56 Plt Count 176 X10^3/uL (150.0-450.0) 08/01/21 06:56 Plt Count Cancelled 08/01/21 06:56 MPV 8.0 fL (7.4-11.0) 08/01/21 06:56 MPV Cancelled 08/01/21 06:56 Neut % (Auto) 76.9 % (42.0-75.0) H 08/01/21 06:56 Neut % (Auto) Cancelled 08/01/21 06:56 Lymph % (Auto) 13.4 % (21.0-51.0) L 08/01/21 06:56 Lymph % (Auto) Cancelled 08/01/21 06:56 [place] % (Auto) 7.5 % (0.0-13.0) 08/01/21 06:56 [place] % (Auto) Cancelled 08/01/21 06:56 Eos % (Auto) 1.5 % (0.9-2.9) 08/01/21 06:56 Eos % (Auto) Cancelled 08/01/21 06:56 Baso % (Auto) 0.7 % (0.2-1.0) 08/01/21 06:56 Baso % (Auto) Cancelled 08/01/21 06:56 Neut # (Auto) 5.1 x10^3/uL (2.2-4.8) H 08/01/21 06:56 Neut # (Auto) Cancelled 08/01/21 06:56 Lymph # (Auto) 0.9 X10^3/uL (1.3-2.9) L 08/01/21 06:56 Lymph # (Auto) Cancelled 08/01/21 06:56 [place] # (Auto) 0.5 x10^3/uL (0.3-0.8) 08/01/21 06:56 [place] # (Auto) Cancelled 08/01/21 06:56 Eos # (Auto) 0.1 x10^3/uL (0.0-0.2) 08/01/21 06:56 Eos # (Auto) Cancelled 08/01/21 06:56 Baso # (Auto) 0.0 X10^3/uL (0.0-0.1) 08/01/21 06:56 Baso # (Auto) Cancelled 08/01/21 06:56 Absolute Nucleated RBC 0.1 /100WBC 08/01/21 06:56 Absolute Nucleated RBC Cancelled 08/01/21 06:56 Sample Site Lr 08/01/21 13:36 ABG pH 7.430 (7.35-7.45) 08/01/21 13:36 ABG pCO2 44.0 mmHg (35.0-45.0) 08/01/21 13:36 ABG pO2 66.0 mmHg (80.0-100.0) L 08/01/21 13:36 ABG HCO3 29.2 mmol/L (22-26) H 08/01/21 13:36 ABG O2 Saturation 93.0 % (90-100) 08/01/21 13:36 ABG Base Excess 4.3 mmol/L (-2.0-2.0) H 08/01/21 13:36 Jacques Test Pos 08/01/21 13:36 A-a Gradient 29.0 mmHg 08/01/21 13:36 FiO2 21.0 08/01/21 13:36 Blood Gas Comments Pt gino well cdn 08/01/21 13:36 Sodium 139 mmol/L (136-145) 08/01/21 06:56 Sodium Cancelled 08/01/21 06:56 Corrected Sodium 139 mmol/L (136-145) 08/01/21 06:56 Corrected Sodium Cancelled 08/01/21 06:56 Potassium 4.2 mmol/L (3.5-5.1) 08/01/21 14:35 Chloride 104 mmol/L (98-107) 08/01/21 06:56 Chloride Cancelled 08/01/21 06:56 Carbon Dioxide 28.0 mmol/L (21-32) 08/01/21 06:56 Carbon Dioxide Cancelled 08/01/21 06:56 BUN 3 mg/dL (7-18) L 08/01/21 06:56 BUN Cancelled 08/01/21 06:56 Creatinine 0.57 mg/dL (0.55-1.02) 08/01/21 06:56 Creatinine Cancelled 08/01/21 06:56 Est GFR (MDRD) Af Amer > 60 (>60) 08/01/21 06:56 Est GFR (MDRD) Af Amer Cancelled 08/01/21 06:56 Est GFR (MDRD) Non-Af > 60 (>60) 08/01/21 06:56 Est GFR (MDRD) Non-Af Cancelled 08/01/21 06:56 Glucose 117 mg/dL (65-99) H 08/01/21 06:56 Glucose Cancelled 08/01/21 06:56 POC Glucose (mg/dL) 76 mg/dL (65-99) 08/01/21 06:19 Calcium 8.6 mg/dL (8.5-10.1) 08/01/21 06:56 Calcium Cancelled 08/01/21 06:56 Corrected Calcium 9.2 mg/dL (8.5-10.1) 08/01/21 06:56 Corrected Calcium Cancelled 08/01/21 06:56 Magnesium 1.8 mg/dL (1.7-2.9) 08/01/21 06:56 Total Bilirubin 0.20 mg/dL (0.2-1.0) 08/01/21 06:56 Total Bilirubin Cancelled 08/01/21 06:56 AST 23 Units/L (15-37) 08/01/21 06:56 AST Cancelled 08/01/21 06:56 ALT 6 Units/L (12-78) L 08/01/21 06:56 ALT Cancelled 08/01/21 06:56 Alkaline Phosphatase 72 Units/L (46-116) 08/01/21 06:56 Alkaline Phosphatase Cancelled 08/01/21 06:56 Total Protein 6.7 g/dL (6.4-8.2) 08/01/21 06:56 Total Protein Cancelled 08/01/21 06:56 Albumin 3.3 g/dL (3.4-5.0) L 08/01/21 06:56 Albumin Cancelled 08/01/21 06:56 Globulin 3.4 g/dL (2.5-4.5) 08/01/21 06:56 Globulin Cancelled 08/01/21 06:56 Albumin/Globulin Ratio 1.0 Ratio (1.1-2.1) L 08/01/21 06:56 Albumin/Globulin Ratio Cancelled 08/01/21 06:56 Specimen Type Clean catch urine 07/31/21 23:29 Urine Color Straw (YELLOW) 07/31/21 23: Urine Appearance Clear (CLEAR) 07/31/21 23: Urine pH 6.5 (5.0 - 8.0) 07/31/21 23:29 Ur Specific [place] 1.010 (1.000-1.030) 07/31/21 23:29 Urine Protein Negative (NEGATIVE) 07/31/21 23:29 Urine Glucose (UA) Negative (NEGATIVE) 07/31/21 23:29 Urine Ketones Negative (NEGATIVE) 07/31/21 23:29 Urine Blood Negative (NEGATIVE) 07/31/21 23: Urine Nitrite Negative (NEGATIVE) 07/31/21 23: Urine Bilirubin Negative (NEGATIVE) 07/31/21 23: Urine Urobilinogen Normal (NORMAL) 07/31/21 23:29 Ur Leukocyte Esterase Negative (NEGATIVE) 07/31/21 23:29 Tissue Pathology To follow 07/31/21 09:00 Radiology Reviewed: Yes EKG Reviewed: Yes Rhythm: NSR ST: Old, Ant and Nonsp Plan (1) Preoperative clearance: Status: Acute Narrative Support Text: The patient CBC, CMP, urinalysis, chest x-ray all within normal limits. On EKG there is a questionable old anterolateral infarct. The patient does report that she had a stress test 2 years ago on her heart that came back as normal. She currently denies chest pain shortness of breath dyspnea on exertion however it is noted that she did become hypoxic during the night after procedure but she also at that time had some opioids in her system from recent procedure. Plan: We will go ahead and have respiratory tube check a ABG on room air and I am going to go ahead and order a echocardiogram today as well. If the ABG and echocardiogram are within normal limits I will go ahead and clear her for surgery. (2) Hypokalemia: Status: Acute Plan: Potassium replacement protocol.
[2021-08-02] MEDS: DUONEB 0.5 MG/3 MG (3 mL) NEB SCH ×6 (00:19→21:51)
[2021-08-02] MEDS: DILAUDID INJ IVP PRN ×5 (04:35→18:25)
[2021-08-02 05:57] LABS: BASOPHILS # (AUTO) 0.1 X10^3/uL (0.0-0.1); EOSINOPHILS # (AUTO) 0.1 x10^3/uL (0.0-0.2); EOSINOPHILS % (AUTO) 0.9 % (0.9-2.9); HEMATOCRIT 35.3 % (36.0-47.0); HEMOGLOBIN 11.7 g/dL (12.0-16.0); LYMPHOCYTES # (AUTO) 0.8 X10^3/uL (1.3-2.9); LYMPHOCYTES % (AUTO) 9.9 % (21.0-51.0); MEAN CORPUSCULAR HEMOGLOBIN 27.4 pg (27.0-34.0); MEAN CORPUSCULAR HGB CONC 33.1 g/dL (33.0-35.0); MEAN CORPUSCULAR VOLUME 82.8 fL (80.0-100.0); MEAN PLATELET VOLUME 8.2 fL (7.4-11.0); MONOCYTES # (AUTO) 0.8 x10^3/uL (0.3-0.8); MONOCYTES % (AUTO) 10.8 % (0.0-13.0); NEUTROPHILS # (AUTO) 5.9 x10^3/uL (2.2-4.8); NEUTROPHILS % (AUTO) 77.4 % (42.0-75.0); RED BLOOD COUNT 4.26 X10^6/uL (3.5-5.4); RED CELL DISTRIBUTION WIDTH 16.9 % (11.6-16.5); WHITE BLOOD COUNT 7.6 X10^3/uL (3.6-10.0)
[2021-08-02] MEDS: D5 1/2 NS 1,000 ML 1,000 ML IV SCH ×2 (06:03→15:45)
[2021-08-02] MEDS: CARAFATE PO SCH ×3 (06:03→21:37)
[2021-08-02 06:28] LABS: ALANINE AMINOTRANSFERASE 8 Units/L (12-78); ALBUMIN 3.5 g/dL (3.4-5.0); ALKALINE PHOSPHATASE 75 Units/L (46-116); ASPARTATE AMINO TRANSFERASE 20 Units/L (15-37); BLOOD UREA NITROGEN 4 mg/dL (7-18); CALCIUM 9.1 mg/dL (8.5-10.1); CARBON DIOXIDE 29.5 mmol/L (21-32); CHLORIDE 101 mmol/L (98-107); CREATININE 0.62 mg/dL (0.55-1.02); SODIUM 138 mmol/L (136-145); TOTAL PROTEIN 7.5 g/dL (6.4-8.2); eGFR NON BLACK RACES > 60 (>60)
--- NOTE | 2021-08-02 08:13 | PCM.PROG ---
Progress Note Progress Note for Day of Date of Exam: 08/02/21 Subjective Subjective: The patient is doing well this morning she reports. No acute problems overnight. Her ABG from yesterday is reviewed which revealed PO2 of 66 and her echocardiogram from yesterday showed an ejection fraction of 56%. Given her low PO2, I suspect this is from her chronic lung disease secondary to smoking for many years. However her O2 sat remains normal at 98% on 2 L nasal cannula and yesterday the oxygen was removed and she was satting 95% on room air. Past Medical Family Social History Past Med/Fam/Surg Hx: No changes since H&P Allergies: Allergies phenobarbital Adverse Reaction (Verified 10/15/20 07:50) RASH Review of Systems ROS: No change since H&P Vital Signs and I&O's Vital Signs: Temperature 98.9 F Pulse Rate [Brachial] 103 Pulse Rate 84 Respiratory Rate 20 Blood Pressure [Left Arm] 125/67 Blood Pressure 128/74 O2 Sat by Pulse Oximetry 98 Intake and Output: Intake & Output 07/30/21 07/31/21 08/01/21 08/02/21 11:59 11:59 11:59 11:59 Intake Total 1345 / 1345 1711 / 1711 4792 / 4792 [id number] / [id number] Balance 1345 / 1345 1711 / 1711 4792 / 4792 [id number] / [id number] Physical Exam Oriented: Normal, Time, Person and Place Eyes: Normal Ear: Normal Nose: Normal Respiratory: Generalized and Diminished Cardiovascular: Normal : Normal Auscultation: Bowel Sounds: Normal Tenderness: Epigastric Skin: Normal Musculoskeletal: Normal Psychiatric: Normal Mood Description: Calm Affect: Normal Speech Pattern: Clear and Appropriate Laboratory and Diagnostics Result Diagrams: 08/02/21 05:29 08/02/21 05:29 Labs: Laboratory WBC 7.6 X10^3/uL (3.6-10.0) 08/02/21 05: RBC 4.26 X10^6/uL (3.5-5.4) 08/02/21 05:29 Hgb 11.7 g/dL (12.0-16.0) L 08/02/21 05: Hct 35.3 % (36.0-47.0) L 08/02/21 05: MCV 82.8 fL (80.0-100.0) 08/02/21 05:29 MCH 27.4 pg (27.0-34.0) 08/02/21 05:29 MCHC 33.1 g/dL (33.0-35.0) 08/02/21 05:29 RDW 16.9 % (11.6-16.5) H 08/02/21 05:29 Plt Count 221 X10^3/uL (150.0-450.0) 08/02/21 05:29 MPV 8.2 fL (7.4-11.0) 08/02/21 05:29 Neut % (Auto) 77.4 % (42.0-75.0) H 08/02/21 05:29 Lymph % (Auto) 9.9 % (21.0-51.0) L 08/02/21 05:29 [place] % (Auto) 10.8 % (0.0-13.0) 08/02/21 05:29 Eos % (Auto) 0.9 % (0.9-2.9) 08/02/21 05:29 Baso % (Auto) 1.0 % (0.2-1.0) 08/02/21 05:29 Neut # (Auto) 5.9 x10^3/uL (2.2-4.8) H 08/02/21 05:29 Lymph # (Auto) 0.8 X10^3/uL (1.3-2.9) L 08/02/21 05:29 [place] # (Auto) 0.8 x10^3/uL (0.3-0.8) 08/02/21 05:29 Eos # (Auto) 0.1 x10^3/uL (0.0-0.2) 08/02/21 05:29 Baso # (Auto) 0.1 X10^3/uL (0.0-0.1) 08/02/21 05:29 Absolute Nucleated RBC 0.1 /100WBC 08/02/21 05:29 Sample Site Lr 08/01/21 13:36 ABG pH 7.430 (7.35-7.45) 08/01/21 13:36 ABG pCO2 44.0 mmHg (35.0-45.0) 08/01/21 13:36 ABG pO2 66.0 mmHg (80.0-100.0) L 08/01/21 13:36 ABG HCO3 29.2 mmol/L (22-26) H 08/01/21 13:36 ABG O2 Saturation 93.0 % (90-100) 08/01/21 13:36 ABG Base Excess 4.3 mmol/L (-2.0-2.0) H 08/01/21 13:36 Jacques Test Pos 08/01/21 13:36 A-a Gradient 29.0 mmHg 08/01/21 13:36 FiO2 21.0 08/01/21 13:36 Blood Gas Comments Pt gino well cdn 08/01/21 13:36 Sodium 138 mmol/L (136-145) 08/02/21 05:29 Corrected Sodium TNP 08/02/21 05:29 Potassium 4.2 mmol/L (3.5-5.1) 08/02/21 05:29 Chloride 101 mmol/L (98-107) 08/02/21 05:29 Carbon Dioxide 29.5 mmol/L (21-32) 08/02/21 05:29 BUN 4 mg/dL (7-18) L 08/02/21 05:29 Creatinine 0.62 mg/dL (0.55-1.02) 08/02/21 05:29 Est GFR (MDRD) Af Amer > 60 (>60) 08/02/21 05:29 Est GFR (MDRD) Non-Af > 60 (>60) 08/02/21 05:29 Glucose 95 mg/dL (65-99) 08/02/21 05:29 POC Glucose (mg/dL) 76 mg/dL (65-99) 08/01/21 06:19 Calcium 9.1 mg/dL (8.5-10.1) 08/02/21 05:29 Corrected Calcium TNP 08/02/21 05:29 Magnesium 2.0 mg/dL (1.7-2.9) 08/02/21 05:29 Total Bilirubin 0.30 mg/dL (0.2-1.0) 08/02/21 05:29 AST 20 Units/L (15-37) 08/02/21 05:29 ALT 8 Units/L (12-78) L 08/02/21 05:29 Alkaline Phosphatase 75 Units/L (46-116) 08/02/21 05: Total Protein 7.5 g/dL (6.4-8.2) 08/02/21 05: Albumin 3.5 g/dL (3.4-5.0) 08/02/21 05: Globulin 4.0 g/dL (2.5-4.5) 08/02/21: Albumin/Globulin Ratio 0.9 Ratio (1.1-2.1) L 08/02/21: Specimen Type Clean catch urine 07/31/21 23: Urine Color Straw (YELLOW) 07/31/21 23: Urine Appearance Clear (CLEAR) 07/31/21: Urine pH 6.5 (5.0 - 8.0) 07/31/21: Ur Specific [place] 1.010 (1.000-1.030) 07/31/21: Urine Protein Negative (NEGATIVE) 07/31/21: Urine Glucose (UA) Negative (NEGATIVE) 07/31/21: Urine Ketones Negative (NEGATIVE) 07/31/21 23: Urine Blood Negative (NEGATIVE) 07/31/21: Urine Nitrite Negative (NEGATIVE) 07/31/21: Urine Bilirubin Negative (NEGATIVE) 07/31/21: Urine Urobilinogen Normal (NORMAL) 07/31/21: Ur Leukocyte Esterase Negative (NEGATIVE) 07/31/21: Tissue Pathology To follow 07/31/21 09:00 Radiology Reviewed: Yes Plan (1) Preoperative clearance: Status: Acute Plan: The patient is cleared for partial gastrectomy today per general surgery, Dr. Mccullough. Prior to surgery this morning I will go ahead and get the patient Solu-Medrol 125 mg IV x1 to help prevent any hypoxia from her chronic lung disease. I will recommend jet nebs post surgery and inhaled steroids as well. (2) Hypokalemia: Status: Resolved Plan: Potassium replacement protocol.
[2021-08-02] MEDS ORDERED: SOLU-Medrol 125 MG VIAL IVP ONE (08:21)
[2021-08-02] MEDS ORDERED: REFLEX: PROVENTIL NEB & PulmiCORT NEB~ NEB SCH (08:30)
[2021-08-02] MEDS: LEVAQUIN PREMIX IV 500 MG 500 MG/100 ML BAG IV SCH (09:43)
[2021-08-02] MEDS: PROTONIX INJ 40 MG VIAL IVP SCH ×2 (09:43→21:36)
[2021-08-02] MEDS ORDERED: DIPRIVAN VIAL 20 ML ONE (09:50)
[2021-08-02] MEDS ORDERED: BRIDION ONE (09:51)
[2021-08-02] MEDS ORDERED: FENTANYL VIAL INJ 250 mcg ONE (09:51)
[2021-08-02] MEDS ORDERED: VERSED ONE (09:52)
[2021-08-02] MEDS ORDERED: BYFAVO INJ IVP ONE (10:12)
[2021-08-02] MEDS ORDERED: POLYMYXIN B SULFATE ONE (10:58)
--- NOTE | 2021-08-02 11:19 | DR.UPDATE ---
H&P Update History and Physical Update: History and Physical reviewed and patient examined. Changes noted: NO Yes with the following:will place central line for access/post op fluid management per Dr Roe request H&P Reviewed: Yes Patient was examined?: Yes Procedures (ALL) - Central Line Placement PCM.CLCO: written consent Time out performed: Yes Patient placed pm monitor/pulse ox: Yes MD prep: mask, gown, gloves, other Centrial line prep: chlorhexidine scrub, sterile drapes applied Local anesthsia used: lidocane 1% Ultrasound used for placement: Yes (right IJ id'd via u/s and cannulation visualized) Central line lumen ininserted: triple Post procedure: sutured in place, good blood return, all ports aspirated, flushed,capped, sterile dressing applied Post procedure xray: tip oc catheter in good position, no pneumothorax seen Patient tolerated procedure: Yes Complications: none
--- NOTE | 2021-08-02 11:33 | RAD ---
HISTORYCENTRAL LINE PLACEMENT PRE OPSTUDYCHEST, 1 [id number] cardiomediastinal silhouette is stable. Right IJ central venous catheter placement with tip overlying the SVC. No acute airspace disease. No pneumothorax or effusion. The bony thorax appears intact.IMPRESSIONRight IJ central venous catheter placement with tip overlying the SVC.Electronically signed by: RIAN CANNON (August 02, 2021 11:32:34)
[2021-08-02] MEDS ORDERED: ANCEF VIAL 1 GRAM ONE (11:46)
[2021-08-02] MEDS ORDERED: NEO-SYNEPHRINE INJ ONE (12:19)
[2021-08-02] MEDS ORDERED: NS 100 ML IV 100 ML ONE (12:20)
[2021-08-02] MEDS ORDERED: HESPAN IV IN NS 500 ML IV ONE (12:27)
[2021-08-02] MEDS ORDERED: ZEMURON 100 MG VIAL ONE (12:46)
[2021-08-02] MEDS ORDERED: DILAUDID INJ ONE (13:04)
[2021-08-02] MEDS ORDERED: TORADOL 30 MG VIAL ONE (13:05)
[2021-08-02] MEDS ORDERED: FENTANYL VIAL INJ 100 mcg ONE (13:41)
[2021-08-02] MEDS ORDERED: LR 1,000 ML IV 1,000 ML IV ONE (14:08)
[2021-08-02] MEDS: NICOTINE PATCH TD SCH (14:14)
[2021-08-02] MEDS ORDERED: BARHEMSYS INJ ONE (14:58)
[2021-08-02] MEDS ORDERED: BARHEMSYS INJ IVP PRN (15:03)
[2021-08-02] MEDS ORDERED: REGLAN INJ 10 MG VIAL IVP PRN (15:03)
[2021-08-02] MEDS ORDERED: ZOFRAN INJ 4 MG VIAL IVP PRN (15:03)
[2021-08-02] MEDS ORDERED: PHENERGAN INJ 25 MG IM PRN (15:03)
[2021-08-02] MEDS ORDERED: BENADRYL INJ 50 MG VIAL IVP PRN (15:03)
[2021-08-02] MEDS: MORPHINE SULFATE INJ 2 MG INJ IVP PRN (16:41)
[2021-08-02] MEDS: ANCEF VIAL 1 GRAM 1 G in NS 100 ML IV 100 ML IV SCH ×2 (16:51→21:36)
[2021-08-02] MEDS: ZOFRAN INJ 4 MG VIAL IVP PRN (21:37)
[2021-08-02] MEDS ORDERED: ANCEF VIAL 1 GRAM IVP SCH (22:00)
[2021-08-03] MEDS: DUONEB 0.5 MG/3 MG (3 mL) NEB SCH ×6 (03:16→20:53)
[2021-08-03] MEDS: DILAUDID INJ IVP PRN ×5 (03:25→20:27)
[2021-08-03] MEDS: ZOFRAN INJ 4 MG VIAL IVP PRN ×3 (03:25→17:55)
[2021-08-03] MEDS: D5 1/2 NS 1,000 ML 1,000 ML IV SCH ×5 (03:32→23:37)
[2021-08-03 05:05] LABS: ALANINE AMINOTRANSFERASE 6 Units/L (12-78); ALBUMIN 2.2 g/dL (3.4-5.0); ALKALINE PHOSPHATASE 52 Units/L (46-116); ASPARTATE AMINO TRANSFERASE 19 Units/L (15-37); BLOOD UREA NITROGEN 6 mg/dL (7-18); CALCIUM 7.8 mg/dL (8.5-10.1); CARBON DIOXIDE 26.6 mmol/L (21-32); CHLORIDE 105 mmol/L (98-107); COR CA(FOR HYPOALB) 9.2 mg/dL (8.5-10.1); COR NA(FOR HYPERGLY) 138 mmol/L (136-145); CREATININE 0.58 mg/dL (0.55-1.02); MAGNESIUM 1.6 mg/dL (1.7-2.9); SODIUM 137 mmol/L (136-145); TOTAL PROTEIN 5.2 g/dL (6.4-8.2); eGFR NON BLACK RACES > 60 (>60)
[2021-08-03 05:27] LABS: BASOPHILS % (AUTO) 0.1 % (0.2-1.0); EOSINOPHILS % (AUTO) 0.1 % (0.9-2.9); HEMATOCRIT 28.8 % (36.0-47.0); LYMPHOCYTES # (AUTO) 0.4 X10^3/uL (1.3-2.9); LYMPHOCYTES % (AUTO) 4.9 % (21.0-51.0); MEAN CORPUSCULAR HEMOGLOBIN 27.9 pg (27.0-34.0); MEAN CORPUSCULAR HGB CONC 33.4 g/dL (33.0-35.0); MEAN CORPUSCULAR VOLUME 83.7 fL (80.0-100.0); MEAN PLATELET VOLUME 8.4 fL (7.4-11.0); MONOCYTES # (AUTO) 0.8 x10^3/uL (0.3-0.8); MONOCYTES % (AUTO) 9.7 % (0.0-13.0); NEUTROPHILS # (AUTO) 7.2 x10^3/uL (2.2-4.8); NEUTROPHILS % (AUTO) 85.2 % (42.0-75.0); RED BLOOD COUNT 3.44 X10^6/uL (3.5-5.4); WHITE BLOOD COUNT 8.4 X10^3/uL (3.6-10.0)
[2021-08-03 05:31] LABS: HEMOGLOBIN 9.6 g/dL (12.0-16.0)
[2021-08-03] MEDS: CARAFATE PO SCH ×3 (06:06→22:01)
[2021-08-03] MEDS: ANCEF VIAL 1 GRAM 1 G in NS 100 ML IV 100 ML IV SCH ×3 (06:06→22:03)
[2021-08-03] MEDS: LOVENOX INJ 40 MG SYR SC SCH (08:09)
[2021-08-03] MEDS: LEVAQUIN PREMIX IV 500 MG 500 MG/100 ML BAG IV SCH (08:13)
--- NOTE | 2021-08-03 09:08 | DR.PROGNOT ---
Hospital Progress Notes - Progress Note for Day of: Progress Note Date: 08/03/21 - Chief Complaint Chief Complaint: Post op gastrectomy day 1 . dping fairly well . moderate drainage in NGT .. good urine out put . - Past Medical Family Social History Past Med/Fam/Surg Hx: No changes since H&P Allergies: Allergies phenobarbital Adverse Reaction (Verified 10/15/20 07:50) RASH - Review Of Systems ROS: No change since H&P - Vital Signs Vital Signs: Temperature 98.5 F Pulse Rate [Brachial] 100 Pulse Rate 104 Respiratory Rate 18 Blood Pressure [Right Arm] 171/79 Blood Pressure [Left Arm] 146/68 Blood Pressure 103/54 O2 Sat by Pulse Oximetry 94 - Physical Exam Oriented: Normal, Time, Person, Place Eyes: Normal Ear: Normal Nose: Normal Respiratory: Generalized, Diminished Cardiovascular: Normal : Normal GI:Auscultation: Normal GI:Palpation: Normal GI: Tenderness: Epigastric (incisional tenderness . BS hypoactive ..) Skin: Normal Musculoskeletal: Normal Psychiatric: Normal Mood Description: Calm Affect: Normal Speech Pattern: Clear, Appropriate - Laboratory and Diagnostics Result Diagrams: 08/03/21 04:12 08/03/21 04:12 Labs: Laboratory WBC 8.4 X10^3/uL (3.6-10.0) 08/03/21 04:12 RBC 3.44 X10^6/uL (3.5-5.4) L 08/03/21 04:12 Hgb 9.6 g/dL (12.0-16.0) L D 08/03/21 04:12 Hct 28.8 % (36.0-47.0) L 08/03/21 04:12 MCV 83.7 fL (80.0-100.0) 08/03/21 04:12 MCH 27.9 pg (27.0-34.0) 08/03/21 04:12 MCHC 33.4 g/dL (33.0-35.0) 08/03/21 04:12 RDW 17.0 % (11.6-16.5) H 08/03/21 04:12 Plt Count 184 X10^3/uL (150.0-450.0) 08/03/21 04:12 MPV 8.4 fL (7.4-11.0) 08/03/21 04:12 Neut % (Auto) 85.2 % (42.0-75.0) H 08/03/21 04:12 Lymph % (Auto) 4.9 % (21.0-51.0) L 08/03/21 04:12 [place] % (Auto) 9.7 % (0.0-13.0) 08/03/21 04:12 Eos % (Auto) 0.1 % (0.9-2.9) L 08/03/21 04:12 Baso % (Auto) 0.1 % (0.2-1.0) L 08/03/21 04:12 Neut # (Auto) 7.2 x10^3/uL (2.2-4.8) H 08/03/21 04:12 Lymph # (Auto) 0.4 X10^3/uL (1.3-2.9) L 08/03/21 04:12 [place] # (Auto) 0.8 x10^3/uL (0.3-0.8) 08/03/21 04:12 Eos # (Auto) 0.0 x10^3/uL (0.0-0.2) 08/03/21 04:12 Baso # (Auto) 0.0 X10^3/uL (0.0-0.1) 08/03/21 04:12 Absolute Nucleated RBC 0.0 /100WBC 08/03/21 04:12 Sample Site Lr 08/01/21 13:36 ABG pH 7.430 (7.35-7.45) 08/01/21 13:36 ABG pCO2 44.0 mmHg (35.0-45.0) 08/01/21 13:36 ABG pO2 66.0 mmHg (80.0-100.0) L 08/01/21 13:36 ABG HCO3 29.2 mmol/L (22-26) H 08/01/21 13:36 ABG O2 Saturation 93.0 % (90-100) 08/01/21 13:36 ABG Base Excess 4.3 mmol/L (-2.0-2.0) H 08/01/21 13:36 Jacques Test Pos 08/01/21 13:36 A-a Gradient 29.0 mmHg 08/01/21 13:36 FiO2 21.0 08/01/21 13:36 Blood Gas Comments Pt gino well cdn 08/01/21 13:36 Sodium 137 mmol/L (136-145) 08/03/21 04:12 Corrected Sodium 138 mmol/L (136-145) 08/03/21 04:12 Potassium 4.1 mmol/L (3.5-5.1) 08/03/21 04:12 Chloride 105 mmol/L (98-107) 08/03/21 04:12 Carbon Dioxide 26.6 mmol/L (21-32) 08/03/21 04:12 BUN 6 mg/dL (7-18) L 08/03/21 04:12 Creatinine 0.58 mg/dL (0.55-1.02) 08/03/21 04:12 Est GFR (MDRD) Af Amer > 60 (>60) 08/03/21 04:12 Est GFR (MDRD) Non-Af > 60 (>60) 08/03/21 04:12 Glucose 127 mg/dL (65-99) H 08/03/21 04:12 POC Glucose (mg/dL) 76 mg/dL (65-99) 08/01/21 06:19 Calcium 7.8 mg/dL (8.5-10.1) L 08/03/21 04:12 Corrected Calcium 9.2 mg/dL (8.5-10.1) 08/03/21 04:12 Magnesium 1.6 mg/dL (1.7-2.9) L 08/03/21 04:12 Total Bilirubin 0.20 mg/dL (0.2-1.0) 08/03/21 04:12 AST 19 Units/L (15-37) 08/03/21 04:12 ALT 6 Units/L (12-78) L 08/03/21 04:12 Alkaline Phosphatase 52 Units/L (46-116) 08/03/21 04:12 Total Protein 5.2 g/dL (6.4-8.2) L 08/03/21 04:12 Albumin 2.2 g/dL (3.4-5.0) L 08/03/21 04:12 Globulin 3.0 g/dL (2.5-4.5) 08/03/21 04:12 Albumin/Globulin Ratio 0.7 Ratio (1.1-2.1) L 08/03/21 04:12 Specimen Type Clean catch urine 07/31/21 23: Urine Color Straw (YELLOW) 07/31/21 23: Urine Appearance Clear (CLEAR) 07/31/21 23: Urine pH 6.5 (5.0 - 8.0) 07/31/21 23:29 Ur Specific [place] 1.010 (1.000-1.030) 07/31/21 23:29 Urine Protein Negative (NEGATIVE) 07/31/21 23: Urine Glucose (UA) Negative (NEGATIVE) 07/31/21 23: Urine Ketones Negative (NEGATIVE) 07/31/21 23: Urine Blood Negative (NEGATIVE) 07/31/21 23: Urine Nitrite Negative (NEGATIVE) 07/31/21: Urine Bilirubin Negative (NEGATIVE) 07/31/21 23: Urine Urobilinogen Normal (NORMAL) 07/31/21 23:29 Ur Leukocyte Esterase Negative (NEGATIVE) 07/31/21 23:29 Tissue Pathology To follow 08/02/21 13:50 - Assessment and Plan 1: PO gastrectomy for chronic and intractable PUD with gastric outlet obstruction .. COPD . same PO care . OOB, DVBT prophylaqxis , IV ABT .. keep NGT and harrison .
[2021-08-03] MEDS: NICOTINE PATCH TD SCH (09:44)
[2021-08-03] MEDS: PROTONIX INJ 40 MG VIAL IVP SCH ×2 (09:44→20:33)
[2021-08-03] MEDS: MAGNESIUM SULFATE 1 GRAM/100 mL PREMIX 1 G/100 ML BAG IV PRN ×2 (09:52→18:44)
[2021-08-03] MEDS: MORPHINE SULFATE INJ 2 MG INJ IVP PRN ×4 (09:57→22:02)
--- NOTE | 2021-08-03 12:42 | RAD ---
SHWETHAORY: abd painStudy: 2 flat views of the abdomenComparison:NoneFindings:There is inspissated barium in the colon. Postsurgical changes.No free air. No acute bony abnormalities.IMPRESSION:1.No evidence for acute abdominal pathology.Electronically signed by: LOLLY FIELDS (August 03, 2021 12:42:26)
[2021-08-03 16:01] LABS: HEMATOCRIT 29.2 % (36.0-47.0); HEMOGLOBIN 9.7 g/dL (12.0-16.0)
[2021-08-04] MEDS: DILAUDID INJ IVP PRN ×7 (00:26→23:40)
[2021-08-04] MEDS: DUONEB 0.5 MG/3 MG (3 mL) NEB SCH ×6 (01:00→20:50)
[2021-08-04] MEDS: MORPHINE SULFATE INJ 2 MG INJ IVP PRN ×5 (02:01→21:10)
[2021-08-04] MEDS: ZOFRAN INJ 4 MG VIAL IVP PRN ×4 (04:17→23:41)
[2021-08-04 05:02] LABS: BASOPHILS % (AUTO) 0.6 % (0.2-1.0); EOSINOPHILS % (AUTO) 0.7 % (0.9-2.9); HEMATOCRIT 27.4 % (36.0-47.0); HEMOGLOBIN 9.2 g/dL (12.0-16.0); LYMPHOCYTES # (AUTO) 0.7 X10^3/uL (1.3-2.9); LYMPHOCYTES % (AUTO) 11.1 % (21.0-51.0); MEAN CORPUSCULAR HEMOGLOBIN 27.7 pg (27.0-34.0); MEAN CORPUSCULAR HGB CONC 33.6 g/dL (33.0-35.0); MEAN CORPUSCULAR VOLUME 82.6 fL (80.0-100.0); MEAN PLATELET VOLUME 8.3 fL (7.4-11.0); MONOCYTES # (AUTO) 0.7 x10^3/uL (0.3-0.8); MONOCYTES % (AUTO) 11.6 % (0.0-13.0); NEUTROPHILS # (AUTO) 4.8 x10^3/uL (2.2-4.8); RED BLOOD COUNT 3.31 X10^6/uL (3.5-5.4); RED CELL DISTRIBUTION WIDTH 16.9 % (11.6-16.5); WHITE BLOOD COUNT 6.4 X10^3/uL (3.6-10.0)
[2021-08-04 05:09] LABS: ALANINE AMINOTRANSFERASE 7 Units/L (12-78); ALBUMIN 2.1 g/dL (3.4-5.0); ALKALINE PHOSPHATASE 57 Units/L (46-116); ASPARTATE AMINO TRANSFERASE 18 Units/L (15-37); BLOOD UREA NITROGEN 5 mg/dL (7-18); CALCIUM 7.9 mg/dL (8.5-10.1); CARBON DIOXIDE 30.2 mmol/L (21-32); CHLORIDE 99 mmol/L (98-107); COR CA(FOR HYPOALB) 9.4 mg/dL (8.5-10.1); COR NA(FOR HYPERGLY) 134 mmol/L (136-145); CREATININE 0.55 mg/dL (0.55-1.02); SODIUM 134 mmol/L (136-145); TOTAL PROTEIN 5.4 g/dL (6.4-8.2); eGFR NON BLACK RACES > 60 (>60)
[2021-08-04] MEDS: ANCEF VIAL 1 GRAM 1 G in NS 100 ML IV 100 ML IV SCH ×3 (06:09→21:03)
[2021-08-04] MEDS: CARAFATE PO SCH ×3 (06:10→21:03)
[2021-08-04] MEDS: D5 1/2 NS 1,000 ML 1,000 ML IV SCH ×5 (06:10→22:11)
[2021-08-04] MEDS: NICOTINE PATCH TD SCH (08:23)
[2021-08-04] MEDS: LOVENOX INJ 40 MG SYR SC SCH (08:23)
[2021-08-04] MEDS: PROTONIX INJ 40 MG VIAL IVP SCH ×2 (08:23→20:30)
[2021-08-04] MEDS: LEVAQUIN PREMIX IV 500 MG 500 MG/100 ML BAG IV SCH (08:31)
--- NOTE | 2021-08-04 11:05 | DR.PROGNOT ---
Hospital Progress Notes - Progress Note for Day of: Progress Note Date: 08/04/21 - Chief Complaint Chief Complaint: Post op gastrectomy day 2. dping fairly well . moderate drainage in NGT .. good urine out put . - Past Medical Family Social History Past Med/Fam/Surg Hx: No changes since H&P Allergies: Allergies phenobarbital Adverse Reaction (Verified 10/15/20 07:50) RASH - Review Of Systems ROS: No change since H&P - Vital Signs Vital Signs: Temperature 98.6 F Pulse Rate [Brachial] 98 Pulse Rate 96 Respiratory Rate 20 Blood Pressure [Right Arm] 123/56 Blood Pressure [Left Arm] 146/68 Blood Pressure 103/54 O2 Sat by Pulse Oximetry 92 - Physical Exam Oriented: Normal, Time, Person, Place Eyes: Normal Ear: Normal Nose: Normal Respiratory: Generalized, Diminished Cardiovascular: Normal : Normal GI:Auscultation: Normal GI:Palpation: Normal GI: Tenderness: Epigastric (incisional tenderness . BS hypoactive ..) Skin: Normal Musculoskeletal: Normal Psychiatric: Normal Mood Description: Calm Affect: Normal Speech Pattern: Clear, Appropriate - Laboratory and Diagnostics Result Diagrams: 08/04/21 04:10 08/04/21 04:10 Labs: Laboratory WBC 6.4 X10^3/uL (3.6-10.0) 08/04/21 04:10 RBC 3.31 X10^6/uL (3.5-5.4) L 08/04/21 04:10 Hgb 9.2 g/dL (12.0-16.0) L 08/04/21 04:10 Hct 27.4 % (36.0-47.0) L 08/04/21 04:10 MCV 82.6 fL (80.0-100.0) 08/04/21 04:10 MCH 27.7 pg (27.0-34.0) 08/04/21 04:10 MCHC 33.6 g/dL (33.0-35.0) 08/04/21 04:10 RDW 16.9 % (11.6-16.5) H 08/04/21 04:10 Plt Count 210 X10^3/uL (150.0-450.0) 08/04/21 04:10 MPV 8.3 fL (7.4-11.0) 08/04/21 04:10 Neut % (Auto) 76.0 % (42.0-75.0) H 08/04/21 04:10 Lymph % (Auto) 11.1 % (21.0-51.0) L 08/04/21 04:10 [place] % (Auto) 11.6 % (0.0-13.0) 08/04/21 04:10 Eos % (Auto) 0.7 % (0.9-2.9) L 08/04/21 04:10 Baso % (Auto) 0.6 % (0.2-1.0) 08/04/21 04:10 Neut # (Auto) 4.8 x10^3/uL (2.2-4.8) 08/04/21 04:10 Lymph # (Auto) 0.7 X10^3/uL (1.3-2.9) L 08/04/21 04:10 [place] # (Auto) 0.7 x10^3/uL (0.3-0.8) 08/04/21 04:10 Eos # (Auto) 0.0 x10^3/uL (0.0-0.2) 08/04/21 04:10 Baso # (Auto) 0.0 X10^3/uL (0.0-0.1) 08/04/21 04:10 Absolute Nucleated RBC 0.0 /100WBC 08/04/21 04:10 Sample Site Lr 08/01/21 13:36 ABG pH 7.430 (7.35-7.45) 08/01/21 13:36 ABG pCO2 44.0 mmHg (35.0-45.0) 08/01/21 13:36 ABG pO2 66.0 mmHg (80.0-100.0) L 08/01/21 13:36 ABG HCO3 29.2 mmol/L (22-26) H 08/01/21 13:36 ABG O2 Saturation 93.0 % (90-100) 08/01/21 13:36 ABG Base Excess 4.3 mmol/L (-2.0-2.0) H 08/01/21 13:36 Jacques Test Pos 08/01/21 13:36 A-a Gradient 29.0 mmHg 08/01/21 13:36 FiO2 21.0 08/01/21 13:36 Blood Gas Comments Pt gino well cdn 08/01/21 13:36 Sodium 134 mmol/L (136-145) L 08/04/21 04:10 Corrected Sodium 134 mmol/L (136-145) L 08/04/21 04:10 Potassium 3.8 mmol/L (3.5-5.1) 08/04/21 04:10 Chloride 99 mmol/L (98-107) 08/04/21 04:10 Carbon Dioxide 30.2 mmol/L (21-32) 08/04/21 04:10 BUN 5 mg/dL (7-18) L 08/04/21 04:10 Creatinine 0.55 mg/dL (0.55-1.02) 08/04/21 04:10 Est GFR (MDRD) Af Amer > 60 (>60) 08/04/21 04:10 Est GFR (MDRD) Non-Af > 60 (>60) 08/04/21 04:10 Glucose 112 mg/dL (65-99) H 08/04/21 04:10 POC Glucose (mg/dL) 76 mg/dL (65-99) 08/01/21 06:19 Calcium 7.9 mg/dL (8.5-10.1) L 08/04/21 04:10 Corrected Calcium 9.4 mg/dL (8.5-10.1) 08/04/21 04:10 Magnesium 1.6 mg/dL (1.7-2.9) L 08/03/21 04:12 Total Bilirubin 0.20 mg/dL (0.2-1.0) 08/04/21 04:10 AST 18 Units/L (15-37) 08/04/21 04:10 ALT 7 Units/L (12-78) L 08/04/21 04:10 Alkaline Phosphatase 57 Units/L (46-116) 08/04/21 04:10 Total Protein 5.4 g/dL (6.4-8.2) L 08/04/21 04:10 Albumin 2.1 g/dL (3.4-5.0) L 08/04/21 04:10 Globulin 3.3 g/dL (2.5-4.5) 08/04/21 04:10 Albumin/Globulin Ratio 0.6 Ratio (1.1-2.1) L 08/04/21 04:10 Specimen Type Clean catch urine 07/31/21 23: Urine Color Straw (YELLOW) 07/31/21 23: Urine Appearance Clear (CLEAR) 07/31/21 23: Urine pH 6.5 (5.0 - 8.0) 07/31/21 23:29 Ur Specific [place] 1.010 (1.000-1.030) 07/31/21 23:29 Urine Protein Negative (NEGATIVE) 07/31/21 23: Urine Glucose (UA) Negative (NEGATIVE) 07/31/21 23: Urine Ketones Negative (NEGATIVE) 07/31/21 23: Urine Blood Negative (NEGATIVE) 07/31/21: Urine Nitrite Negative (NEGATIVE) 07/31/21: Urine Bilirubin Negative (NEGATIVE) 07/31/21 23: Urine Urobilinogen Normal (NORMAL) 07/31/21 23: Ur Leukocyte Esterase Negative (NEGATIVE) 07/31/21 23:29 Tissue Pathology To follow 08/02/21 13:50 - Assessment and Plan 1: PO gastrectomy for chronic and intractable PUD with gastric outlet obstruction .. COPD . same PO care . OOB, DVT prophylaqxis , IV ABT ..to D/C NGT and harrison . keep NPO .
[2021-08-04] MEDS: K-RIDER 10 MEQ/NS 100 ML 10 MEQ/100 ML BAG IV PRN ×2 (16:29→17:30)
[2021-08-05] MEDS: DUONEB 0.5 MG/3 MG (3 mL) NEB SCH ×6 (00:26→21:55)
[2021-08-05] MEDS: MORPHINE SULFATE INJ 2 MG INJ IVP PRN ×2 (02:11→10:32)
[2021-08-05 04:21] LABS: BASOPHILS % (AUTO) 0.7 % (0.2-1.0); EOSINOPHILS # (AUTO) 0.1 x10^3/uL (0.0-0.2); EOSINOPHILS % (AUTO) 1.4 % (0.9-2.9); HEMATOCRIT 26.7 % (36.0-47.0); HEMOGLOBIN 9.1 g/dL (12.0-16.0); LYMPHOCYTES # (AUTO) 0.6 X10^3/uL (1.3-2.9); LYMPHOCYTES % (AUTO) 12.3 % (21.0-51.0); MEAN CORPUSCULAR HGB CONC 33.9 g/dL (33.0-35.0); MEAN CORPUSCULAR VOLUME 82.5 fL (80.0-100.0); MONOCYTES # (AUTO) 0.6 x10^3/uL (0.3-0.8); MONOCYTES % (AUTO) 11.1 % (0.0-13.0); NEUTROPHILS # (AUTO) 3.7 x10^3/uL (2.2-4.8); NEUTROPHILS % (AUTO) 74.5 % (42.0-75.0); RED BLOOD COUNT 3.24 X10^6/uL (3.5-5.4); RED CELL DISTRIBUTION WIDTH 16.5 % (11.6-16.5)
[2021-08-05 04:22] LABS: ALANINE AMINOTRANSFERASE 9 Units/L (12-78); ALBUMIN 2.2 g/dL (3.4-5.0); ALKALINE PHOSPHATASE 64 Units/L (46-116); ASPARTATE AMINO TRANSFERASE 16 Units/L (15-37); BLOOD UREA NITROGEN 3 mg/dL (7-18); CALCIUM 8.3 mg/dL (8.5-10.1); CARBON DIOXIDE 31.9 mmol/L (21-32); CHLORIDE 99 mmol/L (98-107); COR CA(FOR HYPOALB) 9.7 mg/dL (8.5-10.1); COR NA(FOR HYPERGLY) 136 mmol/L (136-145); CREATININE 0.51 mg/dL (0.55-1.02); SODIUM 136 mmol/L (136-145); TOTAL PROTEIN 5.7 g/dL (6.4-8.2); eGFR NON BLACK RACES > 60 (>60)
[2021-08-05] MEDS: ZOFRAN INJ 4 MG VIAL IVP PRN ×2 (04:28→18:49)
[2021-08-05] MEDS: DILAUDID INJ IVP PRN ×3 (04:29→13:10)
[2021-08-05] MEDS: ANCEF VIAL 1 GRAM 1 G in NS 100 ML IV 100 ML IV SCH ×3 (05:00→21:06)
[2021-08-05] MEDS: CARAFATE PO SCH ×3 (05:00→21:06)
[2021-08-05] MEDS: LOVENOX INJ 40 MG SYR SC SCH (08:23)
[2021-08-05] MEDS: LEVAQUIN PREMIX IV 500 MG 500 MG/100 ML BAG IV SCH (08:23)
[2021-08-05] MEDS: PROTONIX INJ 40 MG VIAL IVP SCH ×2 (08:24→21:06)
[2021-08-05] MEDS: NICOTINE PATCH TD SCH (08:24)
--- NOTE | 2021-08-05 11:57 | DR.PROGNOT ---
Hospital Progress Notes - Progress Note for Day of: Progress Note Date: 08/05/21 - Chief Complaint Chief Complaint: Post op gastrectomy day 3. doing fairly well .. good urine out put . lab work is normal . afebrile .. - Past Medical Family Social History Past Med/Fam/Surg Hx: No changes since H&P Allergies: Allergies phenobarbital Adverse Reaction (Verified 10/15/20 07:50) RASH - Review Of Systems ROS: No change since H&P - Vital Signs Vital Signs: Temperature 98.4 F Pulse Rate [Brachial] 97 Pulse Rate 82 Respiratory Rate 18 Blood Pressure [Right Arm] 143/63 Blood Pressure [Left Arm] 117/62 Blood Pressure 103/54 O2 Sat by Pulse Oximetry 105 - Physical Exam Oriented: Normal, Time, Person, Place Eyes: Normal Ear: Normal Nose: Normal Respiratory: Generalized, Diminished Cardiovascular: Normal : Normal GI:Auscultation: Normal GI:Palpation: Normal GI: Tenderness: Epigastric (incisional tenderness . BS hypoactive ..) Skin: Normal Musculoskeletal: Normal Psychiatric: Normal Mood Description: Calm Affect: Normal Speech Pattern: Clear, Appropriate - Laboratory and Diagnostics Result Diagrams: 08/05/21 03:52 08/05/21 03:52 Labs: Laboratory WBC 5.0 X10^3/uL (3.6-10.0) 08/05/21 03:52 RBC 3.24 X10^6/uL (3.5-5.4) L 08/05/21 03:52 Hgb 9.1 g/dL (12.0-16.0) L 08/05/21 03:52 Hct 26.7 % (36.0-47.0) L 08/05/21 03:52 MCV 82.5 fL (80.0-100.0) 08/05/21 03:52 MCH 28.0 pg (27.0-34.0) 08/05/21 03:52 MCHC 33.9 g/dL (33.0-35.0) 08/05/21 03:52 RDW 16.5 % (11.6-16.5) 08/05/21 03:52 Plt Count 189 X10^3/uL (150.0-450.0) 08/05/21 03:52 MPV 8.0 fL (7.4-11.0) 08/05/21 03:52 Neut % (Auto) 74.5 % (42.0-75.0) 08/05/21 03:52 Lymph % (Auto) 12.3 % (21.0-51.0) L 08/05/21 03:52 [place] % (Auto) 11.1 % (0.0-13.0) 08/05/21 03:52 Eos % (Auto) 1.4 % (0.9-2.9) 08/05/21 03:52 Baso % (Auto) 0.7 % (0.2-1.0) 08/05/21 03:52 Neut # (Auto) 3.7 x10^3/uL (2.2-4.8) 08/05/21 03:52 Lymph # (Auto) 0.6 X10^3/uL (1.3-2.9) L 08/05/21 03:52 [place] # (Auto) 0.6 x10^3/uL (0.3-0.8) 08/05/21 03:52 Eos # (Auto) 0.1 x10^3/uL (0.0-0.2) 08/05/21 03:52 Baso # (Auto) 0.0 X10^3/uL (0.0-0.1) 08/05/21 03:52 Absolute Nucleated RBC 0.1 /100WBC 08/05/21 03:52 Sample Site Lr 08/01/21 13:36 ABG pH 7.430 (7.35-7.45) 08/01/21 13:36 ABG pCO2 44.0 mmHg (35.0-45.0) 08/01/21 13:36 ABG pO2 66.0 mmHg (80.0-100.0) L 08/01/21 13:36 ABG HCO3 29.2 mmol/L (22-26) H 08/01/21 13:36 ABG O2 Saturation 93.0 % (90-100) 08/01/21 13:36 ABG Base Excess 4.3 mmol/L (-2.0-2.0) H 08/01/21 13:36 Jacques Test Pos 08/01/21 13:36 A-a Gradient 29.0 mmHg 08/01/21 13:36 FiO2 21.0 08/01/21 13:36 Blood Gas Comments Pt gino well cdn 08/01/21 13:36 Sodium 136 mmol/L (136-145) 08/05/21 03:52 Corrected Sodium 136 mmol/L (136-145) 08/05/21 03:52 Potassium 3.5 mmol/L (3.5-5.1) 08/05/21 03:52 Chloride 99 mmol/L (98-107) 08/05/21 03:52 Carbon Dioxide 31.9 mmol/L (21-32) 08/05/21 03:52 BUN 3 mg/dL (7-18) L 08/05/21 03:52 Creatinine 0.51 mg/dL (0.55-1.02) L 08/05/21 03:52 Est GFR (MDRD) Af Amer > 60 (>60) 08/05/21 03:52 Est GFR (MDRD) Non-Af > 60 (>60) 08/05/21 03:52 Glucose 119 mg/dL (65-99) H 08/05/21 03:52 POC Glucose (mg/dL) 76 mg/dL (65-99) 08/01/21 06:19 Calcium 8.3 mg/dL (8.5-10.1) L 08/05/21 03:52 Corrected Calcium 9.7 mg/dL (8.5-10.1) 08/05/21 03:52 Magnesium 1.6 mg/dL (1.7-2.9) L 08/03/21 04:12 Total Bilirubin 0.30 mg/dL (0.2-1.0) 08/05/21 03:52 AST 16 Units/L (15-37) 08/05/21 03:52 ALT 9 Units/L (12-78) L 08/05/21 03:52 Alkaline Phosphatase 64 Units/L (46-116) 08/05/21 03:52 Total Protein 5.7 g/dL (6.4-8.2) L 08/05/21 03:52 Albumin 2.2 g/dL (3.4-5.0) L 08/05/21 03:52 Globulin 3.5 g/dL (2.5-4.5) 08/05/21 03:52 Albumin/Globulin Ratio 0.6 Ratio (1.1-2.1) L 08/05/21 03:52 Specimen Type Clean catch urine 07/31/21 23: Urine Color Straw (YELLOW) 07/31/21 23: Urine Appearance Clear (CLEAR) 07/31/21 23: Urine pH 6.5 (5.0 - 8.0) 07/31/21 23:29 Ur Specific [place] 1.010 (1.000-1.030) 07/31/21 23: Urine Protein Negative (NEGATIVE) 07/31/21 23: Urine Glucose (UA) Negative (NEGATIVE) 07/31/21 23: Urine Ketones Negative (NEGATIVE) 07/31/21 23: Urine Blood Negative (NEGATIVE) 07/31/21: Urine Nitrite Negative (NEGATIVE) 07/31/21: Urine Bilirubin Negative (NEGATIVE) 07/31/21: Urine Urobilinogen Normal (NORMAL) 07/31/21 23: Ur Leukocyte Esterase Negative (NEGATIVE) 07/31/21 23:29 Tissue Pathology To follow 08/02/21 13:50 - Assessment and Plan 1: PO gastrectomy for chronic and intractable PUD with gastric outlet obstruction .. COPD . same PO care . OOB, DVT prophylaqxis , IV ABT ..to start on clear liquid. .
[2021-08-05] MEDS: D5 1/2 NS 1,000 ML 1,000 ML IV SCH ×5 (12:10→22:03)
[2021-08-05] MEDS: NORCO 5/325 MG TAB PO PRN ×2 (18:20→22:03)
[2021-08-06] MEDS: NORCO 5/325 MG TAB PO PRN ×2 (03:26→08:35)
[2021-08-06] MEDS: CARAFATE PO SCH (05:15)
[2021-08-06] MEDS: ANCEF VIAL 1 GRAM 1 G in NS 100 ML IV 100 ML IV SCH (05:15)
[2021-08-06 05:26] LABS: BASOPHILS % (AUTO) 1.1 % (0.2-1.0); EOSINOPHILS # (AUTO) 0.1 x10^3/uL (0.0-0.2); HEMATOCRIT 26.9 % (36.0-47.0); LYMPHOCYTES # (AUTO) 0.5 X10^3/uL (1.3-2.9); MEAN CORPUSCULAR HEMOGLOBIN 27.6 pg (27.0-34.0); MEAN CORPUSCULAR HGB CONC 33.6 g/dL (33.0-35.0); MEAN CORPUSCULAR VOLUME 82.3 fL (80.0-100.0); MEAN PLATELET VOLUME 8.1 fL (7.4-11.0); MONOCYTES # (AUTO) 0.4 x10^3/uL (0.3-0.8); MONOCYTES % (AUTO) 11.6 % (0.0-13.0); NEUTROPHILS # (AUTO) 2.5 x10^3/uL (2.2-4.8); NEUTROPHILS % (AUTO) 69.3 % (42.0-75.0); RED BLOOD COUNT 3.27 X10^6/uL (3.5-5.4); RED CELL DISTRIBUTION WIDTH 16.6 % (11.6-16.5); WHITE BLOOD COUNT 3.6 X10^3/uL (3.6-10.0)
[2021-08-06 05:46] LABS: ALANINE AMINOTRANSFERASE 8 Units/L (12-78); ALBUMIN 2.1 g/dL (3.4-5.0); ALKALINE PHOSPHATASE 68 Units/L (46-116); ASPARTATE AMINO TRANSFERASE 15 Units/L (15-37); BLOOD UREA NITROGEN 2 mg/dL (7-18); CALCIUM 8.3 mg/dL (8.5-10.1); CARBON DIOXIDE 29.4 mmol/L (21-32); CHLORIDE 102 mmol/L (98-107); COR CA(FOR HYPOALB) 9.8 mg/dL (8.5-10.1); COR NA(FOR HYPERGLY) 138 mmol/L (136-145); CREATININE 0.52 mg/dL (0.55-1.02); SODIUM 138 mmol/L (136-145); TOTAL PROTEIN 5.6 g/dL (6.4-8.2); eGFR NON BLACK RACES > 60 (>60)
[2021-08-06] MEDS: D5 1/2 NS 1,000 ML 1,000 ML IV SCH (06:51)
[2021-08-06] MEDS: LEVAQUIN PREMIX IV 500 MG 500 MG/100 ML BAG IV SCH (08:33)
[2021-08-06] MEDS: NICOTINE PATCH TD SCH (08:33)
[2021-08-06] MEDS: LOVENOX INJ 40 MG SYR SC SCH (08:33)
[2021-08-06] MEDS: PROTONIX INJ 40 MG VIAL IVP SCH (08:34)
[2021-08-06] MEDS: DUONEB 0.5 MG/3 MG (3 mL) NEB SCH (08:51)
[2021-08-06 14:56] VITALS: BP 145/62
== END 2021-08-06 12:08 | disposition home or self-care (01) | DRG 384 ==
LOC: MED/SURG
PROVIDERS: ADMIT Surgery; ATTEND Surgery
PROC: GASTERC (ICD-10-PCS; 2021-08-02 10:40)
DX: I10 Essential (primary) hypertension; R10.84 Generalized abdominal pain; K25.7 Chronic gastric ulcer without hemorrhage or perforation; F41.8 Other specified anxiety disorders; K31.89 Other diseases of stomach and duodenum; D64.89 Other specified anemias; R11.2 Nausea with vomiting, unspecified; E87.6 Hypokalemia; K25.3 Acute gastric ulcer without hemorrhage or perforation; R94.31 Abnormal electrocardiogram [ECG] [EKG]; K21.9 Gastro-esophageal reflux disease without esophagitis; J44.9 Chronic obstructive pulmonary disease, unspecified; Z72.0 Tobacco use; F32.89 Other specified depressive episodes

== ENCOUNTER 2023-06-11 12:30 | Inpatient (IN) ==
[2023-06-11] MEDS: PROTONIX INJ 40 MG VIAL IVP SCH (15:20)
[2023-06-11] MEDS ORDERED: NS 500 ML IV 500 ML IV ONE (15:54)
[2023-06-11 15:57] VITALS: BMI 14.9
[2023-06-12 01:34] VITALS: RESP 18
[2023-06-12 02:51] LABS: BASOPHILS # (AUTO) 0.1 X10^3/uL (0.0-0.1); BASOPHILS % (AUTO) 1.4 % (0.2-1.0); EOSINOPHILS # (AUTO) 0.1 x10^3/uL (0.0-0.2); EOSINOPHILS % (AUTO) 1.4 % (0.9-2.9); HEMATOCRIT 25.1 % (36.0-47.0); HEMOGLOBIN 7.5 g/dL (12.0-16.0); LYMPHOCYTES # (AUTO) 2.3 X10^3/uL (1.3-2.9); LYMPHOCYTES % (AUTO) 57.3 % (21.0-51.0); MEAN CORPUSCULAR HEMOGLOBIN 18.9 pg (27.0-34.0); MEAN PLATELET VOLUME 8.3 fL (7.4-11.0); MONOCYTES # (AUTO) 0.3 x10^3/uL (0.3-0.8); MONOCYTES % (AUTO) 6.9 % (0.0-13.0); NEUTROPHILS # (AUTO) 1.3 x10^3/uL (2.2-4.8); PLATELET COUNT 196 X10^3/uL (150.0-450.0); RED BLOOD COUNT 3.99 X10^6/uL (3.5-5.4); RED CELL DISTRIBUTION WIDTH 28.9 % (11.6-16.5)
[2023-06-12 02:52] LABS: ALANINE AMINOTRANSFERASE 10 Units/L (12-78); ALBUMIN 3.1 g/dL (3.4-5.0); ALKALINE PHOSPHATASE 63 Units/L (46-116); ASPARTATE AMINO TRANSFERASE 26 Units/L (15-37); BLOOD UREA NITROGEN 9 mg/dL (7-18); CALCIUM 7.9 mg/dL (8.5-10.1); CARBON DIOXIDE 26.3 mmol/L (21-32); CHLORIDE 107 mmol/L (98-107); COR CA(FOR HYPOALB) 8.6 mg/dL (8.5-10.1); CREATININE 0.67 mg/dL (0.55-1.02); GLUCOSE 75 mg/dL (65-99); POTASSIUM 4.1 mmol/L (3.5-5.1); SODIUM 139 mmol/L (136-145); TOTAL PROTEIN 6.1 g/dL (6.4-8.2); eGFR NON BLACK RACES > 60 (>60)
[2023-06-12 03:19] LABS: ANISOCYTOSIS 3+; HYPOCHROMASIA 2+; MICROCYTOSIS 2+; PLATELET MORPHOLOGY COMMENT NORMAL (NORMAL); POIKILOCYTOSIS 1+; SCHISTOCYTES SLIGHT; TARGET CELLS 1+; TEAR DROP CELLS SLIGHT
[2023-06-12 03:20] LABS: BASOPHILS % (MANUAL) 2 % (0-1)
[2023-06-12 08:05] VITALS: TEMP 98.2; O2SAT 97
[2023-06-12] MEDS ORDERED: NS 250 ML IV 250 ML IV ONE (11:39)
[2023-06-12 12:22] VITALS: BP 135/71; PULSE 82
--- NOTE | 2023-06-12 12:56 | DR.PROGNOT ---
HOSPITAL PROGRESS NOTE Progress Note for Day of: Progress Note Date: 06/12/23 Chief Complaint Chief Complaint: Patient is doing better today with less shortness of breath and of abdominal pain localized to the epigastrium, no nausea or vomiting. Mild dysphagia, patient is status post recent endoscopy and dilation of benign esophageal stricture. She received 2 units of packed cell and her hemoglobin today after transfusion is 7.5. BUN/creatinine and liver function test were normal. Past Medical Family Social History Allergies: Allergies phenobarbital Adverse Reaction (Intermediate, Verified 09/09/22 10:07) RASH Vital Signs Vital Signs: Vital Signs Temperature 98.2 F Temperature 98.2 F Pulse Rate [Left Brachial] 82 Pulse Rate [Left Brachial] 65 Respiratory Rate 18 Respiratory Rate 18 Blood Pressure [Left Arm] 135/71 Blood Pressure [Left Arm] 130/74 O2 Sat by Pulse Oximetry 97 O2 Sat by Pulse Oximetry 97 Physical Exam Oriented: Normal Eyes: Normal Ear: Normal Respiratory: Normal Cardiovascular: Normal GI:Auscultation: Normal GI:Palpation: Normal GI: Tenderness: Other (Soft flat abdomen with moderate epigastric tenderness..) Speech Pattern: Clear and Appropriate Laboratory and Diagnostics 06/12/23 02:30 06/12/23 02:30 Labs: Laboratory WBC 4.0 X10^3/uL (3.6-10.0) 06/12/23 02:30 RBC 3.99 X10^6/uL (3.5-5.4) 06/12/23 02:30 Hgb 7.5 g/dL (12.0-16.0) L 06/12/23 02:30 Hct 25.1 % (36.0-47.0) L 06/12/23 02:30 MCV 63.0 fL (80.0-100.0) L 06/12/23 02:30 MCH 18.9 pg (27.0-34.0) L 06/12/23 02:30 MCHC 30.0 g/dL (33.0-35.0) L 06/12/23 02:30 RDW 28.9 % (11.6-16.5) H 06/12/23 02:30 Plt Count 196 X10^3/uL (150.0-450.0) 06/12/23 02:30 Plt Count Comment Adequate (ADEQUATE) 06/12/23 02:30 MPV 8.3 fL (7.4-11.0) 06/12/23 02:30 Neut % (Auto) 33.0 % (42.0-75.0) L 06/12/23 02:30 Lymph % (Auto) 57.3 % (21.0-51.0) H 06/12/23 02:30 [place] % (Auto) 6.9 % (0.0-13.0) 06/12/23 02:30 Eos % (Auto) 1.4 % (0.9-2.9) 06/12/23 02:30 Baso % (Auto) 1.4 % (0.2-1.0) H 06/12/23 02:30 Neut # (Auto) 1.3 x10^3/uL (2.2-4.8) L 06/12/23 02:30 Lymph # (Auto) 2.3 X10^3/uL (1.3-2.9) 06/12/23 02:30 [place] # (Auto) 0.3 x10^3/uL (0.3-0.8) 06/12/23 02:30 Eos # (Auto) 0.1 x10^3/uL (0.0-0.2) 06/12/23 02:30 Baso # (Auto) 0.1 X10^3/uL (0.0-0.1) 06/12/23 02:30 Absolute Nucleated RBC 0.3 /100WBC 06/12/23 02:30 Total Counted 50 06/12/23 02:30 Neutrophils % (Manual) 40 % (39-76) 06/12/23 02:30 Lymphocytes % (Manual) 54 % (13-43) H 06/12/23 02:30 Monocytes % (Manual) 2 % (4-9) L 06/12/23 02:30 Eosinophils % (Manual) 2 % (0-6) 06/12/23 02:30 Basophils % (Manual) 2 % (0-1) H 06/12/23 02:30 Plt Morphology Comment Normal (NORMAL) 06/12/23 02:30 RBC Morphology Abnormal (NORMAL) A 06/12/23 02:30 Dimorphic RBCs 1+ 06/12/23 02:30 Hypochromasia 2+ A 06/12/23 02:30 Poikilocytosis 1+ A 06/12/23 02:30 Anisocytosis 3+ A 06/12/23 02:30 Microcytosis 2+ A 06/12/23 02:30 Target Cells 1+ A 06/12/23 02:30 Tear Drop Cells Slight A 06/12/23 02:30 Schistocytes Slight A 06/12/23 02:30 Sodium 139 mmol/L (136-145) 06/12/23 02:30 Corrected Sodium TNP 06/12/23 02:30 Potassium 4.1 mmol/L (3.5-5.1) 06/12/23 02:30 Chloride 107 mmol/L (98-107) 06/12/23 02:30 Carbon Dioxide 26.3 mmol/L (21-32) 06/12/23 02:30 BUN 9 mg/dL (7-18) 06/12/23 02:30 Creatinine 0.67 mg/dL (0.55-1.02) 06/12/23 02:30 Est GFR (MDRD) Af Amer > 60 (>60) 06/12/23 02:30 Est GFR (MDRD) Non-Af > 60 (>60) 06/12/23 02:30 Glucose 75 mg/dL (65-99) 06/12/23 02:30 Calcium 7.9 mg/dL (8.5-10.1) L 06/12/23 02:30 Corrected Calcium 8.6 mg/dL (8.5-10.1) 06/12/23 02:30 Total Bilirubin 0.50 mg/dL (0.2-1.0) 06/12/23 02:30 AST 26 Units/L (15-37) 06/12/23 02:30 ALT 10 Units/L (12-78) L 06/12/23 02:30 Alkaline Phosphatase 63 Units/L (46-116) 06/12/23 02:30 Total Protein 6.1 g/dL (6.4-8.2) L 06/12/23 02:30 Albumin 3.1 g/dL (3.4-5.0) L 06/12/23 02:30 Globulin 3.0 g/dL (2.5-4.5) 06/12/23 02:30 Albumin/Globulin Ratio 1.0 Ratio (1.1-2.1) L 06/12/23 02:30 Blood Type O NEGATIVE 06/11/23 14:55 Antibody Screen Negative 06/11/23 14:55 Crossmatch See Detail 06/11/23 14:55 Assessment and Plan 1: Severe symptomatic anemia required transfusion. Will transfuse 1 more unit and possible discharge. 2: Reflux esophagitis with benign stricture of the lower esophagus. 3: Status post gastrectomy for intractable peptic ulcer disease.
[2023-06-12 17:40] LABS: HEMATOCRIT 28.6 % (36.0-47.0)
== END 2023-06-12 18:34 | disposition home or self-care (01) | DRG 812 ==
LOC: MED/SURG 14:02
PROVIDERS: ADMIT Surgery; ATTEND Surgery
DX: D64.89 Other specified anemias; Z98.890 Other specified postprocedural states; R06.02 Shortness of breath; R10.84 Generalized abdominal pain; R13.11 Dysphagia, oral phase; F41.8 Other specified anxiety disorders; K21.00 Gastro-esophageal reflux disease with esophagitis, without bleeding; R42 Dizziness and giddiness; I10 Essential (primary) hypertension; K22.2 Esophageal obstruction; F32.89 Other specified depressive episodes; Z72.0 Tobacco use

== ENCOUNTER 2024-08-13 19:43 | Inpatient (IN) ==
--- NOTE | 2024-08-13 20:11 | EKG ---
Test Reason : LOW SAT Blood Pressure : */* mmHG Vent. Rate : 79 BPM Atrial Rate : 79 BPM P-R Int : 126 ms QRS Dur : 98 ms QT Int : 378 ms P-R-T Axes : 81 230 69 degrees QTc Int : 433 ms Normal sinus rhythm Indeterminate axis Cannot rule out Anterior infarct , age undetermined Abnormal ECG When compared with ECG of 24-MAR-2024 18:53, Questionable change in QRS axis Confirmed by Gianluca Alvarado MD ([id number]) on 08/14/2024 7:35:29 PM Referred By: Confirmed By: Gianluca Alvarado MD
[2024-08-13 20:13] LABS: ABG BASE EXCESS 6.4 mmol/L (-2.0-2.0)
[2024-08-13 20:16] LABS: ABG ALLEN TEST POS; ABG HCO3 38.1 mmol/L (22-26)
[2024-08-13] MEDS: SOLU-Medrol 125 MG VIAL IVP ONE (20:17)
[2024-08-13] MEDS: MAGNESIUM SULFATE 1 GRAM/100 mL PREMIX 1 G/100 ML BAG IV SCH (20:18)
[2024-08-13 20:40] LABS: BASOPHILS % (AUTO) 0.3 % (0.2-1.0); HEMATOCRIT 44.7 % (36.0-47.0); HEMOGLOBIN 14.4 g/dL (12.0-16.0); LYMPHOCYTES # (AUTO) 0.6 X10^3/uL (1.3-2.9); LYMPHOCYTES % (AUTO) 7.5 % (21.0-51.0); MEAN CORPUSCULAR HEMOGLOBIN 30.5 pg (27.0-34.0); MEAN CORPUSCULAR HGB CONC 32.3 g/dL (33.0-35.0); MEAN CORPUSCULAR VOLUME 94.3 fL (80.0-100.0); MEAN PLATELET VOLUME 6.9 fL (7.4-11.0); MONOCYTES # (AUTO) 0.3 x10^3/uL (0.3-0.8); MONOCYTES % (AUTO) 4.2 % (0.0-13.0); NEUTROPHILS # (AUTO) 7.1 x10^3/uL (2.2-4.8); PLATELET COUNT 230 X10^3/uL (150.0-450.0); RED BLOOD COUNT 4.74 X10^6/uL (3.5-5.4); RED CELL DISTRIBUTION WIDTH 16.8 % (11.6-16.5); WHITE BLOOD COUNT 8.1 X10^3/uL (3.6-10.0)
[2024-08-13 20:57] LABS: ALANINE AMINOTRANSFERASE 14 Units/L (12-78); ALBUMIN 3.3 g/dL (3.4-5.0); ALKALINE PHOSPHATASE 89 Units/L (46-116); ASPARTATE AMINO TRANSFERASE 58 Units/L (15-37); BLOOD UREA NITROGEN 13 mg/dL (7-18); CALCIUM 8.9 mg/dL (8.5-10.1); CARBON DIOXIDE 38.7 mmol/L (21-32); CHLORIDE 90 mmol/L (98-107); COR CA(FOR HYPOALB) 9.5 mg/dL (8.5-10.1); CREATININE 0.42 mg/dL (0.55-1.02); GLUCOSE 109 mg/dL (65-99); MAGNESIUM 1.5 mg/dL (2.0-2.9); POTASSIUM 4.8 mmol/L (3.5-5.1); SODIUM 129 mmol/L (136-145); TOTAL PROTEIN 6.3 g/dL (6.4-8.2); eGFR NON BLACK RACES > 60 (>60)
[2024-08-13 21:00] LABS: CREATINE KINASE 2316 Units/L (26-192)
[2024-08-13 21:24] LABS: ABG BASE EXCESS 5.3 mmol/L (-2.0-2.0)
[2024-08-13 21:25] LABS: ABG ALLEN TEST POS; ABG HCO3 36.3 mmol/L (22-26)
[2024-08-13 23:42] LABS: ABG BASE EXCESS 6.5 mmol/L (-2.0-2.0)
[2024-08-13 23:43] LABS: ABG ALLEN TEST POS; ABG HCO3 37.2 mmol/L (22-26)
[2024-08-14 00:28] LABS: BILIRUBIN,URINE NEGATIVE (NEGATIVE); BLOOD/HEMOGLOBIN,URINE 5+ (NEGATIVE); GLUCOSE, URINE NEGATIVE (NEGATIVE); KETONES,URINE 2+ (NEGATIVE); LEUKOCYTE ESTERASE ,URINE 1+ (NEGATIVE); NITRITES,URINE NEGATIVE (NEGATIVE); PROTEIN,URINE 3+ (NEGATIVE); UROBILINOGEN,URINE NORMAL (NORMAL)
[2024-08-14 00:31] LABS: APPEARANCE,URINE CLEAR (CLEAR); COLOR,URINE PALE YELLOW (YELLOW)
[2024-08-14 00:32] LABS: BACTERIA,URINE NEGATIVE /HPF (NEGATIVE); RBC,URINE 0-2 /HPF (0-3); SQUAMOUS EPITHELIAL CELL,UR RARE /HPF (NEGATIVE)
--- NOTE | 2024-08-14 02:00 | DR.DIZZY ---
HPI Time seen Time Seen by Provider: 08/14/24 01:58 PCP Primary Care Physician: WANDA MARRUFO HPI Comment HPI Comment: According to family patient has hx of copd .continues to smoke at least 2 ppd. Was noted to weak sleepy tied and lethargic .Family became concerned brought patient for evaluation Complaint Chief Complaint Doctor Comments: lethargic Chief Complaint:: PT VIA WHEELCHAIR IN ED WITH FAMILY STATING THAT PT HAS BEEN VERY WEAK, ALTERED, AND LETHARGIC FOR THE PAST 12 HOURS. PT NOTED TO BE CYANOTIC AND MUCOUS MEMBRANES BLUE IN COLOR. COVID-19 Coronavirus risk:travel/contact w/high risk person: No Has patient experienced Coronavirus symptoms: Yes Coronavirus symptoms experienced: Shortness of Breath Source History Provided: Patient and Family Member Mode of Arrival Mode of Arrival: Wheelchair Timing Onset of Chief Complaint: 08/12/24 Came on: Gradually Symptom Onset: Unknown Duration Duration: Since Onset Duration: Days Location of Weakness Weakness Location: Generalized Context Onset: With light exertion Does pt take pot. toxic medication?: No Stroke Symptoms: None PMH PMH Past Medical History: Yes Past Medical History: Anemia, Anxiety, COPD, Depression, Dyslipidemia, Migraines, GERD, Hypertension, Hypothyroidism and PUD Past Medical History Comment: VIT D DEFICIENCY, IBS, OSTEOPEROSIS, Past Surgical History: Yes Surgical History: SECURITY DIRECTOR Surgery, Hysterectomy and Other Past Surgical History Comment: HEMORROIDECTOMY, OOPHORECTOMY, GASTRECTOMY Family History History of Family Medical Conditions: Yes Family Medical History: Cancer Social History Does patient currently use any type of tobacco product: Yes Have you used tobacco products in the last 12 months: Yes Type of Tobacco Use: Cigarettes Does any household member use tobacco: No Alcohol Use: None Do you use any recreational Drugs:: No Lives With: Spouse Lives Where: Home Travel Risk Coronavirus risk:travel/contact w/high risk person: No Has patient experienced Coronavirus symptoms: Yes Coronavirus symptoms experienced: Shortness of Breath Infectious screening Have you traveled outside the country in the last 6 months?: No Isolation: Standard ROS Review of Systems Constitutional: Malaise and Fatigue Eyes: No Symptoms Reported ENTM: No Symptoms Reported Respiratoy: Orthopnea and Short of Breath Cardiovascular: No Symptoms Reported Gastrointestinal/Abdominal: No Symptoms Reported Genitourinary: No Symptoms Reported Neurological: Weakness Musculoskeletal: No Symptoms Reported Integumentary: Other (peripheral cyanosis ) Hematologic/Lymphatic: No Symptoms Reported PE Vital Signs Vitals: Vital Signs Pulse Rate 71 Pulse Rate 73 Pulse Rate 72 Pulse Rate 72 Pulse Rate 71 Pulse Rate 70 Pulse Rate 70 Pulse Rate 71 Pulse Rate 74 Pulse Rate 74 Pulse Rate 81 Pulse Rate 74 Pulse Rate 75 Pulse Rate 77 Pulse Rate 82 Pulse Rate 73 Pulse Rate 73 Pulse Rate 73 Pulse Rate 70 Pulse Rate 74 Pulse Rate 75 Pulse Rate 71 Pulse Rate 70 Pulse Rate 72 Pulse Rate 70 Pulse Rate 71 Pulse Rate 72 Pulse Rate 75 Pulse Rate 79 Pulse Rate 74 Pulse Rate 77 Pulse Rate 79 Pulse Rate 77 Pulse Rate 81 Pulse Rate 80 Respiratory Rate 17 Respiratory Rate 19 Respiratory Rate 17 Respiratory Rate 20 Respiratory Rate 16 Respiratory Rate 20 Respiratory Rate 20 Respiratory Rate 20 Respiratory Rate 20 Respiratory Rate 20 Respiratory Rate 20 Respiratory Rate 20 Respiratory Rate 20 Respiratory Rate 20 Respiratory Rate 22 Respiratory Rate 42 Respiratory Rate 19 Respiratory Rate 20 Respiratory Rate 20 Respiratory Rate 19 Respiratory Rate 24 Respiratory Rate 23 Respiratory Rate 19 Respiratory Rate 20 Respiratory Rate 20 Respiratory Rate 11 Respiratory Rate 8 Respiratory Rate 8 Respiratory Rate 20 Respiratory Rate 21 Respiratory Rate 22 Respiratory Rate 22 Respiratory Rate 23 Respiratory Rate 17 Respiratory Rate 36 Blood Pressure 101/54 Blood Pressure 102/56 Blood Pressure 101/53 Blood Pressure 106/56 Blood Pressure 86/49 Blood Pressure 100/55 Blood Pressure 100/55 Blood Pressure 94/50 Blood Pressure 195/84 Blood Pressure 195/84 Blood Pressure 104/54 Blood Pressure 138/65 Blood Pressure 151/65 Blood Pressure 151/65 Blood Pressure 100/57 Blood Pressure 81/43 Blood Pressure 93/49 Blood Pressure 109/56 Blood Pressure 165/74 Blood Pressure 166/79 Blood Pressure 191/86 O2 Sat by Pulse Oximetry 94 O2 Sat by Pulse Oximetry 95 O2 Sat by Pulse Oximetry 94 O2 Sat by Pulse Oximetry 95 O2 Sat by Pulse Oximetry 95 O2 Sat by Pulse Oximetry 95 O2 Sat by Pulse Oximetry 93 O2 Sat by Pulse Oximetry 98 O2 Sat by Pulse Oximetry 98 O2 Sat by Pulse Oximetry 97 O2 Sat by Pulse Oximetry 98 O2 Sat by Pulse Oximetry 98 O2 Sat by Pulse Oximetry 98 O2 Sat by Pulse Oximetry 97 O2 Sat by Pulse Oximetry 95 O2 Sat by Pulse Oximetry 94 O2 Sat by Pulse Oximetry 87 O2 Sat by Pulse Oximetry 88 O2 Sat by Pulse Oximetry 92 O2 Sat by Pulse Oximetry 87 O2 Sat by Pulse Oximetry 86 O2 Sat by Pulse Oximetry 94 O2 Sat by Pulse Oximetry 99 O2 Sat by Pulse Oximetry 91 O2 Sat by Pulse Oximetry 99 O2 Sat by Pulse Oximetry 94 O2 Sat by Pulse Oximetry 88 O2 Sat by Pulse Oximetry 91 O2 Sat by Pulse Oximetry 90 O2 Sat by Pulse Oximetry 95 O2 Sat by Pulse Oximetry 95 O2 Sat by Pulse Oximetry 99 O2 Sat by Pulse Oximetry 100 General Limitations: No Limitations General Appearance: Anxious, Lethargic and In Distress Head Head Exam: Normal Inspection, Atraumatic and Normocephalic Eyes Eye exam: Normal Appearance, PERRL and EOMI ENT ENT Exam: Mucous Membranes Dry Neck Neck Exam: Normal Inspection and Full ROM Chest Chest Inspection: Normal Inspection Respiratory Respiratory Exam: Accessory Muscle Use, Prolonged Expiratory Phase and Respiratory Distress Respiratory Exam: Bilateral: Wheezing, Bilateral: Crackles and Bilateral: Decreased Breath Sounds Cardiovascular Cardiovascular Exam: +S1 and +S2 Abdominal Exam Abdominal Exam: Normal Inspection, Normal Bowel Sounds and Soft Extremeties Extremities Exam: Normal Inspection Back Back Exam: Normal Inspection Neurologic Neurological Exam: Alert Psychiatric Psychiatric Exam: Anxious and Flat Affect Skin Skin Exam: Cyanosis MDM Additional Information Obtained Additional Findings: community acquired pneumonia ,copd exacerbation Differential Diagnosis Differential Diagnosis: Anemia, Dehydration, Electrolyte disorder, Myocardial infarction and Pulmonary embolus Differential Diagnosis Comment: respiratory faiure ,hypoxemia COURSE Treatment Treatment: oxygen non breather ,bipap,solumederol ,mageniusm ,labs ROR Labs Reviewed Laboratory Results Reviewed?: Yes 08/13/24 20:15 08/13/24 20:15 Laboratory: WBC 8.1 X10^3/uL (3.6-10.0) 08/13/24 20:15 RBC 4.74 X10^6/uL (3.5-5.4) 08/13/24 20:15 Hgb 14.4 g/dL (12.0-16.0) 08/13/24 20:15 Hct 44.7 % (36.0-47.0) 08/13/24 20:15 MCV 94.3 fL (80.0-100.0) 08/13/24 20:15 MCH 30.5 pg (27.0-34.0) 08/13/24 20:15 MCHC 32.3 g/dL (33.0-35.0) L 08/13/24 20:15 RDW 16.8 % (11.6-16.5) H 08/13/24 20:15 Plt Count 230 X10^3/uL (150.0-450.0) 08/13/24 20:15 MPV 6.9 fL (7.4-11.0) L 08/13/24 20:15 Neut % (Auto) 88.0 % (42.0-75.0) H 08/13/24 20:15 Lymph % (Auto) 7.5 % (21.0-51.0) L 08/13/24 20:15 [place] % (Auto) 4.2 % (0.0-13.0) 08/13/24 20:15 Eos % (Auto) 0.0 % (0.9-2.9) L 08/13/24 20:15 Baso % (Auto) 0.3 % (0.2-1.0) 08/13/24 20:15 Neut # (Auto) 7.1 x10^3/uL (2.2-4.8) H 08/13/24 20:15 Lymph # (Auto) 0.6 X10^3/uL (1.3-2.9) L 08/13/24 20:15 [place] # (Auto) 0.3 x10^3/uL (0.3-0.8) 08/13/24 20:15 Eos # (Auto) 0.0 x10^3/uL (0.0-0.2) 08/13/24 20:15 Baso # (Auto) 0.0 X10^3/uL (0.0-0.1) 08/13/24 20:15 Absolute Nucleated RBC 0.1 /100WBC 08/13/24 20:15 D-Dimer 1.03 ug/ml (0.0-0.57) H 08/13/24 20:15 Sample Site Lr 08/14/24 03:02 ABG pH 7.210 (7.35-7.45) L 08/14/24 03:02 ABG pCO2 94.0 mmHg (35.0-45.0) H* 08/14/24 03:02 ABG pO2 69.0 mmHg (80.0-100.0) L 08/14/24 03:02 ABG HCO3 37.6 mmol/L (22-26) H* 08/14/24 03:02 ABG O2 Saturation 89.0 % (90-100) L 08/14/24 03:02 ABG Base Excess 6.6 mmol/L (-2.0-2.0) H 08/14/24 03:02 Jacques Test Pos 08/14/24 03:02 A-a Gradient 99.0 mmHg 08/14/24 03:02 FiO2 40.0 08/14/24 03:02 Blood Gas Comments Alie well ae 08/14/24 03:02 Sodium 129 mmol/L (136-145) L 08/13/24 20:15 Corrected Sodium TNP 08/13/24 20:15 Potassium 4.8 mmol/L (3.5-5.1) 08/13/24 20:15 Chloride 90 mmol/L (98-107) L 08/13/24 20:15 Carbon Dioxide 38.7 mmol/L (21-32) H 08/13/24 20:15 BUN 13 mg/dL (7-18) 08/13/24 20:15 Creatinine 0.42 mg/dL (0.55-1.02) L 08/13/24 20:15 Est GFR (MDRD) Af Amer > 60 (>60) 08/13/24 20:15 Est GFR (MDRD) Non-Af > 60 (>60) 08/13/24 20:15 Glucose 109 mg/dL (65-99) H 08/13/24 20:15 POC Glucose (mg/dL) 109 mg/dL (65-99) H 08/14/24 03:52 Calcium 8.9 mg/dL (8.5-10.1) 08/13/24 20:15 Corrected Calcium 9.5 mg/dL (8.5-10.1) 08/13/24 20:15 Magnesium 1.5 mg/dL (2.0-2.9) L 08/13/24 20:15 Total Bilirubin 0.30 mg/dL (0.2-1.0) 08/13/24 20:15 AST 58 Units/L (15-37) H 08/13/24 20:15 ALT 14 Units/L (12-78) 08/13/24 20:15 Alkaline Phosphatase 89 Units/L (46-116) 08/13/24 20:15 Creatine Kinase 2316 Units/L (26-192) H 08/13/24 20:15 Troponin I High Sens 48.1 ng/L (4.0-60.0) 08/13/24 22:22 B-Natriuretic Peptide 359 pg/mL (0-79) H 08/13/24 20:15 Total Protein 6.3 g/dL (6.4-8.2) L 08/13/24 20:15 Albumin 3.3 g/dL (3.4-5.0) L 08/13/24 20:15 Globulin 3.0 g/dL (2.5-4.5) 08/13/24 20:15 Albumin/Globulin Ratio 1.1 Ratio (1.1-2.1) 08/13/24 20:15 Specimen Type Catherized urine 08/14/24 00:12 Urine Color Pale yellow (YELLOW) 08/14/24 00:12 Urine Appearance Clear (CLEAR) 08/14/24 00:12 Urine pH 6.0 (5.0 - 8.0) 08/14/24 00:12 Ur Specific Palmer 1.025 (1.000-1.030) 08/14/24 00:12 Urine Protein 3+ (NEGATIVE) 08/14/24 00:12 Urine Glucose (UA) Negative (NEGATIVE) 08/14/24 00:12 Urine Ketones 2+ (NEGATIVE) 08/14/24 00:12 Urine Blood 5+ (NEGATIVE) 08/14/24 00:12 Urine Nitrite Negative (NEGATIVE) 08/14/24 00:12 Urine Bilirubin Negative (NEGATIVE) 08/14/24 00:12 Urine Urobilinogen Normal (NORMAL) 08/14/24 00:12 Ur Leukocyte Esterase 1+ (NEGATIVE) 08/14/24 00:12 Urine RBC 0-2 /HPF (0-3) 08/14/24 00:12 Urine WBC 0-2 /HPF (0-5) 08/14/24 00:12 Ur Squamous Epith Cells Rare /HPF (NEGATIVE) 08/14/24 00:12 Urine Bacteria Negative /HPF (NEGATIVE) 08/14/24 00:12 Ur Culture Indicated? No/not indicated 08/14/24 00:12 SARS-CoV-2 (PCR) Negative (NEGATIVE) 08/13/24 20:09 Influenza Type A (PCR) Negative (NEGATIVE) 08/13/24 20:09 Influenza Type B (PCR) Negative (NEGATIVE) 08/13/24 20:09 RSV (PCR) Negative (NEGATIVE) 08/13/24 20:09 Opioid Opioid Risk Tool Age (Cedric box if 16-45): No History of Preadolescent Sexual Abuse: No Total: 0 Total Score Risk Category: Low Risk Copyright: [facility] predicting aberrant behaviors Discharge Plan Diagnosis Discharge Problem: Respiratory failure, Community acquired pneumonia, Acute hyponatremia, Rhabdomyolysis, Emphysema/COPD Discharge Plan Patient Disposition: ADMITTED INPATIENT Condition: Stable Prescriptions: No Action cyanocobalamin (vitamin B-12) 1,000 mcg/mL solution 1,000 mcg subcut QWEEK 28 Days Qty: 10 2RF cholecalciferol (vitamin D3) 1,250 mcg (50,000 unit) capsule 1,250 mcg PO QWEEK 30 Days Qty: 5 1RF Rx Instructions: Take 1 capsule PO once a week, on the same day of each week albuterol sulfate 90 mcg/actuation HFA aerosol inhaler 2 puff inhalation Q4-6H PRN (Reason: shortness of breath or wheezing) 30 Days Qty: 6.7 2RF loratadine [Claritin] 10 mg tablet 10 mg PO QDAY 30 Days Qty: 30 2RF promethazine 25 mg tablet 25 mg PO TID PRN (Reason: Nausea) Qty: 60 1RF levothyroxine [Synthroid] 50 mcg tablet 50 mcg PO QDAY Qty: 30 3RF folic acid 1 mg tablet 1 mg PO QDAY Qty: 90 0RF rosuvastatin 20 mg tablet 20 mg PO QDAY Qty: 90 3RF carvedilol 25 mg tablet 25 mg PO BID Qty: 180 3RF Rx Instructions: must administer with a meal/food pantoprazole 40 mg tablet,delayed release (DR/EC) 40 mg PO BID 90 Days Qty: 180 1RF lisinopril 20 mg tablet 20 mg PO BID Qty: 180 3RF nitroglycerin 0.4 mg tablet, sublingual 0.4 mg sublingual Q5-15M PRN (Reason: chest pain) Qty: 30 5RF Rx Instructions: do not exceed 3 doses per episode Ferretts 325 mg (106 mg iron) tablet 325 mg PO QDAY Health Concerns: Post Hospitalization: new medications and changes needed to prevent readmission or further decline. Pt educated and given instructions on all concerns. Plan of Treatment: Continue with present treatment and follow up plan. Pt is to keep follow up appointment as instructed and take medications as ordered. Orders to Discharge Patient Discharge Orders: Transfer (Routine); Ordered 08/14/24 Ordered By: Derrek Angel Follow ups/Referrals Follow ups/Referrals: NFD,None [Primary Care Provider] - 3 days Instructions Stand Alone Forms: Find Help Web Site, Post Hospital Follow Up Care ADDITIONAL NOTES Additional Notes Additional Notes: labs ,cxr ,abg discussed .will start pt on zosyn and levaquin, solumederol IV ,bipap.Discussed with Dr Mason agreed to have patient admit to ICU
[2024-08-14] MEDS: NS 1,000 ML IV 1,000 ML IV SCH (03:05)
[2024-08-14 03:07] LABS: ABG BASE EXCESS 6.6 mmol/L (-2.0-2.0)
[2024-08-14 03:08] LABS: ABG ALLEN TEST POS; ABG HCO3 37.6 mmol/L (22-26)
[2024-08-14] MEDS: MORPHINE SULFATE INJ 2 MG INJ IVP ONE (04:05)
[2024-08-14] MEDS ORDERED: KETAMINE HCL ONE (04:27)
[2024-08-14] MEDS: SOLU-Medrol 125 MG VIAL IVP SCH (04:30)
[2024-08-14] MEDS: ZOSYN VIAL 4.5 GRAMS 4.5 G in NS 100 ML IV + SPIKE MINIBAG* 100 ML IV SCH (04:31)
--- NOTE | 2024-08-14 04:31 | RAD ---
EXAM:CHEST, 1 VIEWHISTORY:SHORTNESS OF BREATH;COMPARISON:08/02/2021FINDINGS:The trachea is midline. The cardiac silhouette is unremarkable. COPD. Mild increased interstitial markings within the right lung base.. The bony thorax is unremarkable.IMPRESSION:Mild increased interstitial markings within the right lung base consistent with edema and/or infiltrate.THIS IS AN ELECTRONICALLY VERIFIED FINAL REPORT08/14/2024 4:28 AM - Electronically signed by Kelton Sheehan MD
[2024-08-14] MEDS: ATIVAN INJ 2 MG VIAL IVP ONE (05:49)
[2024-08-14] MEDS: MAGNESIUM SULFATE 1 GRAM/100 mL PREMIX 1 G/100 ML BAG IV ONE (05:55)
[2024-08-14] MEDS: NS 1,000 ML IV 1,000 ML ONE (05:55)
[2024-08-14] MEDS: SOLU-Medrol 125 MG VIAL ONE ×2 (05:55→05:58)
[2024-08-14] MEDS: MORPHINE SULFATE INJ 2 MG INJ ONE (05:56)
[2024-08-14] MEDS: ZOSYN VIAL 4.5 GRAMS IV ONE ×2 (05:57→14:58)
[2024-08-14] MEDS: NS 100 ML IV 100 ML ONE ×2 (05:57→14:58)
[2024-08-14 06:31] LABS: BASOPHILS % (AUTO) 0.3 % (0.2-1.0); HEMATOCRIT 42.6 % (36.0-47.0); HEMOGLOBIN 13.9 g/dL (12.0-16.0); LYMPHOCYTES # (AUTO) 0.2 X10^3/uL (1.3-2.9); LYMPHOCYTES % (AUTO) 3.7 % (21.0-51.0); MEAN CORPUSCULAR HEMOGLOBIN 30.2 pg (27.0-34.0); MEAN CORPUSCULAR HGB CONC 32.7 g/dL (33.0-35.0); MEAN CORPUSCULAR VOLUME 92.3 fL (80.0-100.0); MEAN PLATELET VOLUME 6.9 fL (7.4-11.0); MONOCYTES # (AUTO) 0 x10^3/uL (0.3-0.8); MONOCYTES % (AUTO) 0.2 % (0.0-13.0); NEUTROPHILS # (AUTO) 5.4 x10^3/uL (2.2-4.8); NEUTROPHILS % (AUTO) 95.8 % (42.0-75.0); PLATELET COUNT 186 X10^3/uL (150.0-450.0); RED BLOOD COUNT 4.62 X10^6/uL (3.5-5.4); RED CELL DISTRIBUTION WIDTH 16.7 % (11.6-16.5); WHITE BLOOD COUNT 5.7 X10^3/uL (3.6-10.0)
[2024-08-14 06:52] LABS: ALANINE AMINOTRANSFERASE 13 Units/L (12-78); ALBUMIN 2.9 g/dL (3.4-5.0); ALKALINE PHOSPHATASE 79 Units/L (46-116); ASPARTATE AMINO TRANSFERASE 59 Units/L (15-37); BLOOD UREA NITROGEN 12 mg/dL (7-18); CALCIUM 8.6 mg/dL (8.5-10.1); CARBON DIOXIDE 34.9 mmol/L (21-32); CHLORIDE 92 mmol/L (98-107); COR CA(FOR HYPOALB) 9.5 mg/dL (8.5-10.1); CREATININE 0.44 mg/dL (0.55-1.02); GLUCOSE 94 mg/dL (65-99); POTASSIUM 4.6 mmol/L (3.5-5.1); SODIUM 130 mmol/L (136-145); TOTAL PROTEIN 5.8 g/dL (6.4-8.2); eGFR NON BLACK RACES > 60 (>60)
[2024-08-14 06:58] LABS: PLATELET MORPHOLOGY COMMENT NORMAL (NORMAL)
[2024-08-14] MEDS: ~ZOSYN/LEVAQUIN (Pneumonia) XX ONE (06:59)
[2024-08-14] MEDS: SYNTHROID 50 mcg TAB PO SCH (08:21)
[2024-08-14] MEDS: DUONEB 0.5 MG/3 MG (3 mL) NEB SCH (08:28)
[2024-08-14] MEDS: PULMICORT NEB TX 0.5 MG NEB SCH (08:28)
[2024-08-14 08:33] LABS: ABG ALLEN TEST POS; ABG BASE EXCESS 8.9 mmol/L (-2.0-2.0); ABG HCO3 40.6 mmol/L (22-26)
[2024-08-14 09:56] VITALS: BMI 18.8
[2024-08-14 12:34] LABS: ABG BASE EXCESS 8.6 mmol/L (-2.0-2.0)
[2024-08-14] MEDS ORDERED: VERSED ONE (13:00)
[2024-08-14] MEDS ORDERED: NS 100 ML IV 100 ML ONE (13:01)
[2024-08-14] MEDS: VERSED 100 MG in NS 100 ML IV 80 ML IV PRN (13:30)
[2024-08-14] MEDS ORDERED: DIPRIVAN PREMIX 1 GRAM IV 1,000 MG/100 ML VIAL ONE (14:12)
[2024-08-14] MEDS: DIPRIVAN PREMIX 1 GRAM IV 1,000 MG/100 ML VIAL IV PRN (14:18)
--- NOTE | 2024-08-14 14:44 | RAD ---
EXAM: CHEST, 1 VIEW HISTORY: intubation placement; COMPARISON: 08/13/2024 TECHNIQUE: AP portable FINDINGS: Endotracheal tube tip 4.7 cm above the bam. Stable cardiac silhouette. Unchanged patchy bibasila r opacities, [id number]-left. No large pleural effusion or visible pneumothorax. IMPRESSION: 1. Endotracheal tube tip 4.7 cm above the bam. 2. Stable patchy bibasilar opacities, [id number]-vnvajhr-znvc-left. THIS IS AN ELECTRONICALLY VERIFIED FINAL REPORT 08/14/2024 2:38 PM - Electronically signed by Eh Long MD
[2024-08-14] MEDS: DIPRIVAN VIAL 20 ML ONE (14:51)
[2024-08-14] MEDS: ZEMURON 100 MG VIAL ONE (14:56)
[2024-08-14 15:37] LABS: ABG ALLEN TEST POS; ABG BASE EXCESS 10.7 mmol/L (-2.0-2.0); ABG HCO3 34.2 mmol/L (22-26)
[2024-08-14 20:45] LABS: ABG BASE EXCESS 9.3 mmol/L (-2.0-2.0)
[2024-08-14 20:46] LABS: ABG ALLEN TEST POS; ABG HCO3 32.5 mmol/L (22-26)
[2024-08-14] MEDS: SALINE 0.9% 3 ML NEB TX NEB ONE (21:08)
[2024-08-14] MEDS: SALINE 3% 15 ML NEB TX NEB ONE (21:08)
[2024-08-14] MEDS: ZOSYN VIAL 4.5 GRAMS 4.5 G in NS 100 ML IV 100 ML IV SCH (21:13)
[2024-08-14] MEDS ORDERED: NS 250 ML IV 250 ML IV ONE (21:16)
[2024-08-15] MEDS: NS 100 ML IV 100 ML ONE (00:23)
[2024-08-15] MEDS: NS 250 ML IV 250 ML IV PRN (02:08)
[2024-08-15 04:39] LABS: BASOPHILS % (AUTO) 0.1 % (0.2-1.0); HEMATOCRIT 39.5 % (36.0-47.0); HEMOGLOBIN 13.2 g/dL (12.0-16.0); LYMPHOCYTES # (AUTO) 0.2 X10^3/uL (1.3-2.9); LYMPHOCYTES % (AUTO) 3.7 % (21.0-51.0); MEAN CORPUSCULAR HEMOGLOBIN 30.7 pg (27.0-34.0); MEAN CORPUSCULAR HGB CONC 33.4 g/dL (33.0-35.0); MEAN CORPUSCULAR VOLUME 92.1 fL (80.0-100.0); MEAN PLATELET VOLUME 7.3 fL (7.4-11.0); MONOCYTES # (AUTO) 0.1 x10^3/uL (0.3-0.8); MONOCYTES % (AUTO) 2.7 % (0.0-13.0); NEUTROPHILS # (AUTO) 3.9 x10^3/uL (2.2-4.8); NEUTROPHILS % (AUTO) 93.5 % (42.0-75.0); PLATELET COUNT 192 X10^3/uL (150.0-450.0); RED BLOOD COUNT 4.29 X10^6/uL (3.5-5.4); RED CELL DISTRIBUTION WIDTH 17.1 % (11.6-16.5); WHITE BLOOD COUNT 4.1 X10^3/uL (3.6-10.0)
[2024-08-15 04:49] LABS: ALANINE AMINOTRANSFERASE 12 Units/L (12-78); ALBUMIN 2.5 g/dL (3.4-5.0); ALKALINE PHOSPHATASE 64 Units/L (46-116); ASPARTATE AMINO TRANSFERASE 33 Units/L (15-37); BLOOD UREA NITROGEN 13 mg/dL (7-18); CALCIUM 8.8 mg/dL (8.5-10.1); CARBON DIOXIDE 27.5 mmol/L (21-32); CHLORIDE 97 mmol/L (98-107); CREATININE 0.52 mg/dL (0.55-1.02); GLUCOSE 89 mg/dL (65-99); MAGNESIUM 1.7 mg/dL (2.0-2.9); POTASSIUM 3.7 mmol/L (3.5-5.1); SODIUM 134 mmol/L (136-145); TOTAL PROTEIN 5.2 g/dL (6.4-8.2); eGFR NON BLACK RACES > 60 (>60)
[2024-08-15 05:01] LABS: PLATELET MORPHOLOGY COMMENT NORMAL (NORMAL)
[2024-08-15 05:03] LABS: ANISOCYTOSIS SLIGHT
[2024-08-15 05:41] LABS: ABG BASE EXCESS 8.7 mmol/L (-2.0-2.0)
[2024-08-15 05:42] LABS: ABG ALLEN TEST POS; ABG HCO3 32.8 mmol/L (22-26)
[2024-08-15] MEDS: CONSULT PHARMACY - POTASSIUM & MAGNESIUM XX SCH (08:05)
[2024-08-15] MEDS: MAGNESIUM SULFATE 1 GRAM/100 mL PREMIX 1 G/100 ML BAG IV SCH ×3 (08:55→13:05)
[2024-08-15] MEDS ORDERED: DUKE'S Magic Mouthwash (nyst/dex/ben/doxyc) MT PRN (09:10)
[2024-08-15] MEDS: LUBIFRESH PM EYE OINTMENT AFFEYE SCH (09:23)
[2024-08-15] MEDS: PHARMACY CONSULT - VANCOMYCIN XX SCH (09:51)
[2024-08-15] MEDS: VANCOMYCIN IV *PREMIX 750 mg/150 ML BAG 750 MG/150 ML PIGGYBACK IV SCH (10:00)
[2024-08-15] MEDS: K-RIDER 10 MEQ/100 ML WATER 10 MEQ/100 ML BAG IV ONE (11:09)
[2024-08-15] MEDS ORDERED: MAGNESIUM SULFATE 1 GRAM/100 mL PREMIX 1 G/100 ML BAG IV ONE ×2 (12:48)
[2024-08-15] MEDS: SOLU-Medrol 40 MG VIAL IVP SCH (14:08)
[2024-08-15] MEDS ORDERED: SOLU-Medrol 125 MG VIAL IVP SCH (15:00)
[2024-08-15] MEDS: K-RIDER 10 MEQ/100 ML WATER 10 MEQ/100 ML BAG IV SCH (18:49)
--- NOTE | 2024-08-16 04:32 | RAD ---
EXAM:CHEST, 1 VIEWHISTORY:PT IS ON VENT, RESPIRATORY FAILURE;COMPARISON:08/14/2024FINDINGS:Th e cardiomediastinal silhouette is stable. Endotracheal tube unchanged.Similar airspace opacities, [id number]-[id number]-vaer-left. No pneumothorax or effusion.No acute osseous abnormality.IMPRESSION:Similar airspace opacities concerning for pneumonia.THIS IS AN ELECTRONICALLY VERIFIED FINAL REPORT08/16/2024 4:28 AM - Electronically signed by Magdy Wheeler MD
[2024-08-16 04:56] LABS: HEMOGLOBIN 12.9 g/dL (12.0-16.0); LYMPHOCYTES # (AUTO) 0.1 X10^3/uL (1.3-2.9); NEUTROPHILS # (AUTO) 3.6 x10^3/uL (2.2-4.8); WHITE BLOOD COUNT 3.9 X10^3/uL (3.6-10.0)
[2024-08-16 05:02] LABS: BASOPHILS % (AUTO) 0.1 % (0.2-1.0); HEMATOCRIT 38.7 % (36.0-47.0); LYMPHOCYTES % (AUTO) 3.8 % (21.0-51.0); MEAN CORPUSCULAR HEMOGLOBIN 30.6 pg (27.0-34.0); MEAN CORPUSCULAR HGB CONC 33.3 g/dL (33.0-35.0); MEAN CORPUSCULAR VOLUME 91.8 fL (80.0-100.0); MONOCYTES # (AUTO) 0.2 x10^3/uL (0.3-0.8); MONOCYTES % (AUTO) 4.2 % (0.0-13.0); NEUTROPHILS % (AUTO) 91.9 % (42.0-75.0); PLATELET COUNT 165 X10^3/uL (150.0-450.0); RED BLOOD COUNT 4.22 X10^6/uL (3.5-5.4)
[2024-08-16 05:03] LABS: ABG BASE EXCESS 7.3 mmol/L (-2.0-2.0)
[2024-08-16 05:05] LABS: ABG ALLEN TEST POS; ABG HCO3 32.6 mmol/L (22-26)
[2024-08-16 05:09] LABS: ALANINE AMINOTRANSFERASE 9 Units/L (12-78); ALBUMIN 2.3 g/dL (3.4-5.0); ALKALINE PHOSPHATASE 56 Units/L (46-116); ASPARTATE AMINO TRANSFERASE 21 Units/L (15-37); BLOOD UREA NITROGEN 11 mg/dL (7-18); CALCIUM 8.7 mg/dL (8.5-10.1); CARBON DIOXIDE 28.2 mmol/L (21-32); CHLORIDE 100 mmol/L (98-107); COR CA(FOR HYPOALB) 10.1 mg/dL (8.5-10.1); COR NA(FOR HYPERGLY) 136 mmol/L (136-145); CREATININE 0.45 mg/dL (0.55-1.02); GLUCOSE 117 mg/dL (65-99); MAGNESIUM 2.2 mg/dL (2.0-2.9); POTASSIUM 3.5 mmol/L (3.5-5.1); SODIUM 136 mmol/L (136-145); TOTAL PROTEIN 4.9 g/dL (6.4-8.2); eGFR NON BLACK RACES > 60 (>60)
[2024-08-16 05:48] LABS: PLATELET MORPHOLOGY COMMENT NORMAL (NORMAL)
--- NOTE | 2024-08-16 06:58 | RAD ---
EXAMINATION:CHEST, 1 VIEWHISTORY:VENTILATOR PROTOCOL; ANEMIA, COPD, MIGRAINES, GERD, HTN, PUD SX: HYST, GASTRECTOMY, OOPHORECTOMY .COMPARISON STUDY:Chest x-ray 08/15/2024TECHNIQUE:Single portable AP view chestFINDINGS:The pulmonary apices were not fully imaged.Visualized lungs are expanded. Tip of the endotracheal tube 5.3 cm above the level of the bam. Catheter vertically oriented along the medial aspect of the right upper to mid chest. Patchy interstitial alveolar infiltrates scattered in both lungs. More confluent alveolar infiltrate right mid and lower lung field. Heart size and pulmonary vascular pattern appear normal. Bones are intact.IMPRESSION:Pulmonary apices were not fully imaged. Pulmonary infiltrates.THIS IS AN ELECTRONICALLY VERIFIED FINAL REPORT08/16/2024 6:54 AM - Electronically signed by Deborah Montiel MD
[2024-08-16] MEDS: LOVENOX INJ 40 MG SYR SC SCH (09:39)
[2024-08-16] MEDS: VASOTEC INJ 2.5 MG VIAL IVP PRN (14:20)
--- NOTE | 2024-08-16 14:22 | NOTE.SOAP ---
Soap Note Note for Day of Date of Exam: 08/16/24 Subjective Data Subjective Data: Intubated and sedated. Plans for sedation holiday later today. BP borderline- high to high overnight. Nurses at bedside. Objective Data Objective Data: Thin female in NAD. Lungs diminished with ventilator sounds. RRR. Sedated and intubated. BS present. Assessment Assessment: 1. COPD exacerbation 2. Acute on chronic hypercapnic respiratory failure. 3. RLL PNA. 4. Metabolic alkalosis with respiratory compensation. Plan Plan: Continue IV antibiotics, vent protocol, and routine labs. Better BP control.
[2024-08-16] MEDS ORDERED: PHARMACY COMMENT IV NR (20:00)
[2024-08-16 20:39] LABS: CREATININE 0.39 mg/dL (0.55-1.02); VANCOMYCIN,TROUGH 9.9 ug/mL (15-20)
[2024-08-16] MEDS: VANCOMYCIN HCL 1 G in D5W 250 ML IV 250 ML IV SCH (21:19)
[2024-08-17] MEDS ORDERED: ZOSYN VIAL 4.5 GRAMS IV ONE (06:00)
[2024-08-17 07:41] LABS: ALANINE AMINOTRANSFERASE 11 Units/L (12-78); ALBUMIN 2.2 g/dL (3.4-5.0); ALKALINE PHOSPHATASE 54 Units/L (46-116); ASPARTATE AMINO TRANSFERASE 18 Units/L (15-37); BLOOD UREA NITROGEN 13 mg/dL (7-18); CALCIUM 8.2 mg/dL (8.5-10.1); CARBON DIOXIDE 35.4 mmol/L (21-32); CHLORIDE 103 mmol/L (98-107); COR CA(FOR HYPOALB) 9.6 mg/dL (8.5-10.1); COR NA(FOR HYPERGLY) 144 mmol/L (136-145); CREATININE 0.42 mg/dL (0.55-1.02); GLUCOSE 226 mg/dL (65-99); POTASSIUM 3.4 mmol/L (3.5-5.1); SODIUM 141 mmol/L (136-145); TOTAL PROTEIN 4.8 g/dL (6.4-8.2); eGFR NON BLACK RACES > 60 (>60)
--- NOTE | 2024-08-17 08:04 | RAD ---
EXAMINATION: CHEST, 1 VIEW HISTORY: NG TUBE PLACEMENT; . COMPARISON STUDY: 08/16/2024 TECHNIQUE: One view FINDINGS: Endotracheal tube is unchanged. Nasogastric tube tip in the body of the stomach. Heart size is normal. Patchy opacities are slightly less. No pneumothorax, new infiltrate or other change noted. Multiple EKG leads overlie the chest. Technical artifact overlies the chest. IMPRESSION: Nasogastric tube tip in the body of the stomach. Decrease in bilateral opacities. Left apex is not well included on the films THIS IS AN ELECTRONICALLY VERIFIED FINAL REPORT 08/17/2024 8:01 AM - Electronically signed by Danny Marquez MD
[2024-08-17 08:13] LABS: BASOPHILS % (AUTO) 0 % (0.2-1.0); HEMATOCRIT 38.7 % (36.0-47.0); HEMOGLOBIN 12.9 g/dL (12.0-16.0); LYMPHOCYTES # (AUTO) 0.1 X10^3/uL (1.3-2.9); LYMPHOCYTES % (AUTO) 1.8 % (21.0-51.0); MEAN CORPUSCULAR HEMOGLOBIN 30.5 pg (27.0-34.0); MEAN CORPUSCULAR HGB CONC 33.2 g/dL (33.0-35.0); MEAN CORPUSCULAR VOLUME 91.8 fL (80.0-100.0); MEAN PLATELET VOLUME 7.3 fL (7.4-11.0); MONOCYTES # (AUTO) 0.3 x10^3/uL (0.3-0.8); MONOCYTES % (AUTO) 4.6 % (0.0-13.0); NEUTROPHILS % (AUTO) 93.6 % (42.0-75.0); PLATELET COUNT 167 X10^3/uL (150.0-450.0); RED BLOOD COUNT 4.22 X10^6/uL (3.5-5.4); RED CELL DISTRIBUTION WIDTH 16.9 % (11.6-16.5); WHITE BLOOD COUNT 6.4 X10^3/uL (3.6-10.0)
[2024-08-17 08:20] LABS: ABG BASE EXCESS 13.8 mmol/L (-2.0-2.0)
[2024-08-17 08:22] LABS: ABG ALLEN TEST YES; ABG HCO3 39.5 mmol/L (22-26)
[2024-08-17 08:35] LABS: BAND NEUTROPHILS % 2 % (0-10)
[2024-08-17 08:36] LABS: ANISOCYTOSIS SLIGHT; PLATELET MORPHOLOGY COMMENT NORMAL (NORMAL)
--- NOTE | 2024-08-17 09:23 | NOTE.SOAP ---
Soap Note Note for Day of Date of Exam: 08/17/24 Subjective Data Subjective Data: ABG consistent with elevation in CO2. Did fairly well with sedation holiday yesterday. Blood pressure better with some elevations. Objective Data Objective Data: Thin, elderly female on ventilator. Still sedated. Lung sounds diminished with ventilator noises. Heart regular rate and rhythm. Bowel sounds are present. No edema appreciated. Assessment Assessment: 1. COPD exacerbation 2. Acute on chronic hypercapnic respiratory failure. 3. RLL PNA. 4. Metabolic alkalosis with respiratory compensation. Plan Plan: Sedation holiday. Hope to have patient off vent in the next 24 to 48 ho urs. Discussed with patient's spouse.
[2024-08-18 04:10] LABS: ABG BASE EXCESS 13.5 mmol/L (-2.0-2.0); ABG HCO3 40.1 mmol/L (22-26)
[2024-08-18 04:11] LABS: ABG ALLEN TEST POS
--- NOTE | 2024-08-18 04:33 | RAD ---
EXAM: CHEST, 1 VIEW HISTORY: VENTILATOR PROTOCOL ; COPD, MIGRAINES, GERD, HTN, PUD SX: HYST, GASTRECTOMY COMPARISON: 08/16/2024 FINDINGS: The cardiomediastinal silhouette is stable. Endotracheal and enteric tubes in similar position. Similar bilateral airspace opacities, polso-kqqkjzv-gbun-left. No pneumothorax. No acute osseous abnormality. IMPRESSION: Similar chest without acute change. THIS IS AN ELECTRONICALLY VERIFIED FINAL REPORT 08/18/2024 4:30 AM - Electronically signed by Magdy Wheeler MD
[2024-08-18 04:50] LABS: HEMOGLOBIN 13.8 g/dL (12.0-16.0); LYMPHOCYTES # (AUTO) 0.2 X10^3/uL (1.3-2.9); MONOCYTES # (AUTO) 0.4 x10^3/uL (0.3-0.8); MONOCYTES % (AUTO) 5.5 % (0.0-13.0); WHITE BLOOD COUNT 7.8 X10^3/uL (3.6-10.0)
[2024-08-18 05:00] LABS: ALANINE AMINOTRANSFERASE 10 Units/L (12-78); ALBUMIN 1.9 g/dL (3.4-5.0); ALKALINE PHOSPHATASE 49 Units/L (46-116); ASPARTATE AMINO TRANSFERASE 20 Units/L (15-37); BLOOD UREA NITROGEN 11 mg/dL (7-18); CALCIUM 7.8 mg/dL (8.5-10.1); CARBON DIOXIDE 32.5 mmol/L (21-32); CHLORIDE 104 mmol/L (98-107); COR CA(FOR HYPOALB) 9.5 mg/dL (8.5-10.1); COR NA(FOR HYPERGLY) 139 mmol/L (136-145); CREATININE 0.26 mg/dL (0.55-1.02); GLUCOSE 159 mg/dL (65-99); MAGNESIUM 1.9 mg/dL (2.0-2.9); SODIUM 138 mmol/L (136-145); TOTAL PROTEIN 5.1 g/dL (6.4-8.2); eGFR NON BLACK RACES > 60 (>60)
[2024-08-18 05:05] LABS: BASOPHILS % (AUTO) 0.1 % (0.2-1.0); HEMATOCRIT 41.9 % (36.0-47.0); LYMPHOCYTES % (AUTO) 2.3 % (21.0-51.0); MEAN CORPUSCULAR HEMOGLOBIN 30.5 pg (27.0-34.0); MEAN CORPUSCULAR HGB CONC 32.9 g/dL (33.0-35.0); MEAN CORPUSCULAR VOLUME 92.8 fL (80.0-100.0); MEAN PLATELET VOLUME 7.5 fL (7.4-11.0); NEUTROPHILS # (AUTO) 7.1 x10^3/uL (2.2-4.8); NEUTROPHILS % (AUTO) 92.1 % (42.0-75.0); PLATELET COUNT 139 X10^3/uL (150.0-450.0); RED BLOOD COUNT 4.52 X10^6/uL (3.5-5.4); RED CELL DISTRIBUTION WIDTH 16.7 % (11.6-16.5)
[2024-08-18 05:50] LABS: PLATELET MORPHOLOGY COMMENT NORMAL (NORMAL)
[2024-08-18] MEDS: PHARMACY COMMENT IV ONE (08:30)
[2024-08-18 09:28] LABS: CREATININE 0.2 mg/dL (0.55-1.02); VANCOMYCIN,TROUGH 10.6 ug/mL (15-20)
[2024-08-18] MEDS: CARDENE IV PREMIX* 40 MG/200 ML 40 MG/200 ML PIGGYBACK IV PRN (10:13)
--- NOTE | 2024-08-18 13:09 | NOTE.SOAP ---
Soap Note Note for Day of Date of Exam: 08/18/24 Subjective Data Subjective Data: ABG still showing hypercapnia with mild hypoxemia. No pH imbalance today. Blood pressure on the elevated side. Did very well during her sedation holidays the last 2 days. Versed already off this morning and patient has been interacting with her and son at bedside. Objective Data Objective Data: Thin, elderly female on ventilator. She is not sedated. Eyes track appropriately and patient is trying to voice. Lung sounds are diminished with mechanical background noises. Heart regular rate and rhythm. Bowel sound is present. Assessment Assessment: 1. COPD exacerbation with acute hypercapnic respiratory failure. Attempt extubate today. 2. Tobacco dependence from cigarette smoking. Nicotine patch, high-dose. 3. Hypertension, benign essential. Add on nicardipine drip. Hopefully will be able to switch to p.o. tomorrow.
[2024-08-18] MEDS: XOPENEX 1.25 MG/3 ML NEBULE NEB SCH (13:17)
[2024-08-18] MEDS: NICOTINE PATCH TD SCH (14:08)
[2024-08-19 05:00] LABS: BASOPHILS % (AUTO) 0.1 % (0.2-1.0); HEMATOCRIT 44.3 % (36.0-47.0); HEMOGLOBIN 14.6 g/dL (12.0-16.0); LYMPHOCYTES # (AUTO) 0.2 X10^3/uL (1.3-2.9); LYMPHOCYTES % (AUTO) 2.9 % (21.0-51.0); MEAN CORPUSCULAR HEMOGLOBIN 30.4 pg (27.0-34.0); MEAN CORPUSCULAR HGB CONC 32.9 g/dL (33.0-35.0); MEAN CORPUSCULAR VOLUME 92.4 fL (80.0-100.0); MEAN PLATELET VOLUME 7.6 fL (7.4-11.0); MONOCYTES # (AUTO) 0.2 x10^3/uL (0.3-0.8); MONOCYTES % (AUTO) 2.4 % (0.0-13.0); NEUTROPHILS % (AUTO) 94.6 % (42.0-75.0); PLATELET COUNT 163 X10^3/uL (150.0-450.0); RED CELL DISTRIBUTION WIDTH 16.3 % (11.6-16.5); WHITE BLOOD COUNT 7.4 X10^3/uL (3.6-10.0)
[2024-08-19 05:11] LABS: ALANINE AMINOTRANSFERASE 13 Units/L (12-78); ALBUMIN 2.6 g/dL (3.4-5.0); ALKALINE PHOSPHATASE 57 Units/L (46-116); ASPARTATE AMINO TRANSFERASE 25 Units/L (15-37); BLOOD UREA NITROGEN 10 mg/dL (7-18); CALCIUM 8.5 mg/dL (8.5-10.1); CARBON DIOXIDE 37.4 mmol/L (21-32); CHLORIDE 104 mmol/L (98-107); COR CA(FOR HYPOALB) 9.6 mg/dL (8.5-10.1); COR NA(FOR HYPERGLY) 140 mmol/L (136-145); CREATININE 0.51 mg/dL (0.55-1.02); GLUCOSE 114 mg/dL (65-99); POTASSIUM 3.3 mmol/L (3.5-5.1); SODIUM 140 mmol/L (136-145); eGFR NON BLACK RACES > 60 (>60)
[2024-08-19 05:17] LABS: PLATELET MORPHOLOGY COMMENT NORMAL (NORMAL)
[2024-08-19 05:31] LABS: ABG BASE EXCESS 10.5 mmol/L (-2.0-2.0)
[2024-08-19 05:33] LABS: ABG ALLEN TEST POS
[2024-08-19] MEDS: NS 250 ML IV 250 ML IV ONE (07:30)
[2024-08-19] MEDS: K-DUR TAB 20 MEQ PO SCH (08:12)
[2024-08-19] MEDS: MAG-OX TAB PO SCH (08:12)
--- NOTE | 2024-08-19 08:38 | NOTE.SOAP ---
Soap Note Note for Day of Date of Exam: 08/19/24 Subjective Data Subjective Data: Patient extubated yesterday. Did fairly well overnight but still feels sore and weak. Did finally get some rest with some hydrocodone last night. Blood pressure better on the Cardene drip. Wants to start moving around the room today. Objective Data Objective Data: Lung sounds diminished but clear. Speech is strong. Mood and affect are appropriate. Hearing is intact to conversation. Heart regular rate and rhythm. Bowel sounds present. Able to move all extremities well with no edema. Assessment Assessment: 1. COPD exacerbation with acute hypercapnic respiratory failure. Resolving. Respiratory failure resolved. 2. Benign essential hypertension, controlled. 3. Generalized weakness. Plan Plan: Continue current meds other than Cardene drip. Switch to amlodipine p.o. Out of bed as tolerated. Regular diet. Add CPK in the morning. Move to a regular bed.
[2024-08-19] MEDS: NORVASC TAB 5 MG PO SCH (11:17)
[2024-08-19] MEDS: DIFLUCAN PO SCH (11:55)
[2024-08-19] MEDS: DIFLUCAN ONE (12:10)
[2024-08-19] MEDS: CONSULT PHARMACY - POTASSIUM & MAGNESIUM XX SCH (12:11)
[2024-08-19 21:04] LABS: CREATININE 0.51 mg/dL (0.55-1.02); VANCOMYCIN,TROUGH 15.7 ug/mL (15-20)
[2024-08-19] MEDS: PHARMACY COMMENT IV ONE (21:21)
[2024-08-19] MEDS: NORCO 5/325 MG TAB PO PRN (23:27)
[2024-08-20 07:36] LABS: BASOPHILS # (AUTO) 0.1 X10^3/uL (0.0-0.1); BASOPHILS % (AUTO) 0.6 % (0.2-1.0); EOSINOPHILS % (AUTO) 0.3 % (0.9-2.9); HEMATOCRIT 48.3 % (36.0-47.0); HEMOGLOBIN 15.7 g/dL (12.0-16.0); LYMPHOCYTES # (AUTO) 0.2 X10^3/uL (1.3-2.9); LYMPHOCYTES % (AUTO) 2.7 % (21.0-51.0); MEAN CORPUSCULAR HEMOGLOBIN 30.4 pg (27.0-34.0); MEAN CORPUSCULAR HGB CONC 32.6 g/dL (33.0-35.0); MEAN CORPUSCULAR VOLUME 93.5 fL (80.0-100.0); MEAN PLATELET VOLUME 7.8 fL (7.4-11.0); MONOCYTES # (AUTO) 0.2 x10^3/uL (0.3-0.8); MONOCYTES % (AUTO) 2.4 % (0.0-13.0); NEUTROPHILS # (AUTO) 8.6 x10^3/uL (2.2-4.8); PLATELET COUNT 145 X10^3/uL (150.0-450.0); RED BLOOD COUNT 5.17 X10^6/uL (3.5-5.4); RED CELL DISTRIBUTION WIDTH 16.4 % (11.6-16.5); WHITE BLOOD COUNT 9.1 X10^3/uL (3.6-10.0)
[2024-08-20 08:00] LABS: ALKALINE PHOSPHATASE 67 Units/L (46-116); ASPARTATE AMINO TRANSFERASE 24 Units/L (15-37); CARBON DIOXIDE 27.4 mmol/L (21-32); CHLORIDE 102 mmol/L (98-107); CREATINE KINASE 89 Units/L (26-192); SODIUM 139 mmol/L (136-145); TOTAL PROTEIN 6.5 g/dL (6.4-8.2)
[2024-08-20 08:41] LABS: PLATELET MORPHOLOGY COMMENT NORMAL (NORMAL)
[2024-08-20 09:24] LABS: COR CA(FOR HYPOALB) 9.9 mg/dL (8.5-10.1); COR NA(FOR HYPERGLY) 140 mmol/L (136-145); eGFR NON BLACK RACES > 60 (>60)
[2024-08-20 09:37] LABS: ALANINE AMINOTRANSFERASE 16 Units/L (12-78); ALBUMIN 2.5 g/dL (3.4-5.0); BLOOD UREA NITROGEN 10 mg/dL (7-18); CALCIUM 8.7 mg/dL (8.5-10.1); CREATININE 0.43 mg/dL (0.55-1.02); GLUCOSE 121 mg/dL (65-99); MAGNESIUM 1.9 mg/dL (2.0-2.9)
[2024-08-20] MEDS: NICOTINE PATCH TD SCH (10:13)
[2024-08-20] MEDS: LASIX IVP ONE (10:13)
--- NOTE | 2024-08-20 14:48 | NOTE.SOAP ---
Soap Note Note for Day of Date of Exam: 08/20/24 Subjective Data Subjective Data: Patient now on a floor bed. Has been attempt to ambulate but still has a Bennett catheter. Nursing is planning on doing bladder retraining today. She is having a productive cough. Tolerating nasal cannula. Objective Data Objective Data: No acute distress, thin, well-developed female. Hearing intact conversation. Mood and affect are appropriate. Peripheral edema throughout. Good air movement with rhonchi throughout. Heart regular rate and rhythm. Assessment Assessment: 1. COPD exacerbation. 2. Bennett in place. 3. Peripheral edema. 4. Generalized weakness. Plan Plan: 40 mg of Lasix x 1 today. Bladder training. Continue nebs and inhalers with steroids. Out of bed as tolerated.
--- NOTE | 2024-08-20 15:01 | RAD ---
EXAM: CHEST HISTORY: hypoxia; COMPARISON: [email or web address] submitted for interpretation. FINDINGS: The cardiomediastinal silhouette is within normal limits. Lungs show pulmonary edema with bilateral pleural effusions. IMPRESSION: Pulmonary edema with bilateral pleural effusions. THIS IS AN ELECTRONICALLY VERIFIED FINAL REPORT 08/20/2024 2:57 PM - Electronically signed by Eh Skinner MD
[2024-08-20] MEDS: NS 1,000 ML IV 1,000 ML IV SCH (16:24)
[2024-08-20] MEDS: CHECK PATCH XX SCH (20:52)
[2024-08-21 06:06] LABS: BASOPHILS % (AUTO) 0.4 % (0.2-1.0); EOSINOPHILS % (AUTO) 0.1 % (0.9-2.9); HEMOGLOBIN 14.3 g/dL (12.0-16.0); LYMPHOCYTES # (AUTO) 0.2 X10^3/uL (1.3-2.9); LYMPHOCYTES % (AUTO) 1.6 % (21.0-51.0); MEAN CORPUSCULAR HEMOGLOBIN 30.4 pg (27.0-34.0); MEAN CORPUSCULAR HGB CONC 33.3 g/dL (33.0-35.0); MEAN CORPUSCULAR VOLUME 91.4 fL (80.0-100.0); MEAN PLATELET VOLUME 7.2 fL (7.4-11.0); MONOCYTES # (AUTO) 0.5 x10^3/uL (0.3-0.8); MONOCYTES % (AUTO) 4.5 % (0.0-13.0); NEUTROPHILS # (AUTO) 10.1 x10^3/uL (2.2-4.8); NEUTROPHILS % (AUTO) 93.4 % (42.0-75.0); PLATELET COUNT 155 X10^3/uL (150.0-450.0); RED CELL DISTRIBUTION WIDTH 16.2 % (11.6-16.5); WHITE BLOOD COUNT 10.9 X10^3/uL (3.6-10.0)
[2024-08-21 06:25] LABS: ALANINE AMINOTRANSFERASE 21 Units/L (12-78); ALBUMIN 2.3 g/dL (3.4-5.0); ALKALINE PHOSPHATASE 57 Units/L (46-116); ASPARTATE AMINO TRANSFERASE 35 Units/L (15-37); BLOOD UREA NITROGEN 9 mg/dL (7-18); CALCIUM 8.6 mg/dL (8.5-10.1); CARBON DIOXIDE 34.2 mmol/L (21-32); CHLORIDE 102 mmol/L (98-107); COR NA(FOR HYPERGLY) 141 mmol/L (136-145); CREATININE 0.38 mg/dL (0.55-1.02); GLUCOSE 125 mg/dL (65-99); MAGNESIUM 1.8 mg/dL (2.0-2.9); POTASSIUM 3.1 mmol/L (3.5-5.1); SODIUM 140 mmol/L (136-145); eGFR NON BLACK RACES > 60 (>60)
[2024-08-21 07:07] LABS: PLATELET MORPHOLOGY COMMENT NORMAL (NORMAL)
[2024-08-21] MEDS ORDERED: CONSULT PHARMACY - POTASSIUM & MAGNESIUM XX SCH (08:00)
--- NOTE | 2024-08-21 09:00 | EKG ---
Test Reason : CP Blood Pressure : */* mmHG Vent. Rate : 103 BPM Atrial Rate : 103 BPM P-R Int : 94 ms QRS Dur : 86 ms QT Int : 318 ms P-R-T Axes : 37 19 32 degrees QTc Int : 416 ms Sinus tachycardia with short CO Low voltage QRS Cannot rule out Anterior infarct (cited on or before 13-AUG-2024) Abnormal ECG When compared with ECG of 13-AUG-2024 20:07, Questionable change in QRS axis Questionable change in initial forces of Anterior leads Nonspecific T wave abnormality now evident in Inferior leads T wave amplitude has decreased in Lateral leads Confirmed by Gianluca Alvarado MD ([id number]) on 08/22/2024 7:21:42 AM Referred By: Confirmed By: Gianluca Alvarado MD
[2024-08-21] MEDS: MORPHINE SULFATE INJ 2 MG INJ IVP PRN (09:25)
[2024-08-21] MEDS: MAG-OX TAB PO SCH (09:29)
[2024-08-21] MEDS: K-DUR TAB 20 MEQ PO SCH (09:29)
[2024-08-21 09:55] LABS: CREATININE 0.28 mg/dL (0.55-1.02); VANCOMYCIN,TROUGH 16.9 ug/mL (15-20)
[2024-08-21] MEDS: MILK OF MAGNESIA PO PRN (15:19)
[2024-08-21] MEDS: COLACE CAP 100 MG PO PRN (15:19)
[2024-08-21] MEDS: LASIX IVP SCH (15:19)
[2024-08-21] MEDS ORDERED: OMNIPAQUE 350 mg/mL 100 mL BTL 100 ML ONE (15:27)
--- NOTE | 2024-08-21 15:47 | NOTE.SOAP ---
Soap Note Note for Day of Date of Exam: 08/21/24 Subjective Data Subjective Data: Still tired and weak. Swelling improved. and nurse at bedside. Breathing seems to be improving. Pseudomonas and Bella on sputum culture. Objective Data Objective Data: 2+ pitting edema of all extremities with weeping of the left arm, improved from yesterday though. Lung sounds diminished with continued rhonchi but better than yesterday. Speech is strong. Heart regular rate and rhythm. Mood and affect are appropriate for condition. Assessment Assessment: 1. COPD exacerbation due to Pseudomonas and Bella, continue current. 2. Benign essential hypertension, chronic. Continue current. 3. Volume overload, approximately 50 pounds heavier than it mention. Continue Lasix. 4. Generalized weakness, combination of critical care myopathy, recent acute respiratory failure, COPD exacerbation, and volume overload. Will plan on swing bed placement if she qualifies
--- NOTE | 2024-08-21 16:34 | CT ---
EXAM: CHEST WITH CONTRAST HISTORY: CCC, HYPOXIA, PNEUMONIA; COMPARISON: Chest x-ray from August 20, 2024 TECHNIQUE: Axial CT images of the chest were obtained after the administration of 100 mL Omnipaque 300 IV contrast. Images were reformatted into the coronal and sagittal planes for further evaluation. Radiation dose: 270.36 mGy-cm total DLP FINDINGS: No pericardial effusion. Aorta is normal in caliber without dissection. No filling defects in the pulmonary arteries that would suggest a pulmonary embolus. Thyroid appears normal. Central airways are widely patent. Moderate ascites. Remainder of the upper abdomen is unremarkable. Large bilateral pleural effusions with adjacent atelectasis. Moderate centrilobular emphysema. No acute focal infiltrate. No pneumothorax. Diffuse anasarca. Osseous structures are unremarkable. IMPRESSION: 1. Large nonspecific bilateral pleural effusions with adjacent atelectasis. 2. Moderate centrilobular emphysema. 3. Moderate volume ascites. THIS IS AN ELECTRONICALLY VERIFIED FINAL REPORT 08/21/2024 4:31 PM - Electronically signed by Roosevelt Roberts MD
[2024-08-22] MEDS: PREDNISONE TAB 20 MG PO SCH (08:38)
[2024-08-22] MEDS: COZAAR PO SCH (08:38)
[2024-08-22 09:03] VITALS: BP 176/83; RESP 19; TEMP 98.1
[2024-08-22 09:14] LABS: BASOPHILS % (AUTO) 0.3 % (0.2-1.0); HEMATOCRIT 49.3 % (36.0-47.0); HEMOGLOBIN 16.1 g/dL (12.0-16.0); LYMPHOCYTES # (AUTO) 0.3 X10^3/uL (1.3-2.9); LYMPHOCYTES % (AUTO) 2.2 % (21.0-51.0); MEAN CORPUSCULAR HGB CONC 32.6 g/dL (33.0-35.0); MEAN CORPUSCULAR VOLUME 92.1 fL (80.0-100.0); MEAN PLATELET VOLUME 7.5 fL (7.4-11.0); MONOCYTES # (AUTO) 0 x10^3/uL (0.3-0.8); MONOCYTES % (AUTO) 0.2 % (0.0-13.0); NEUTROPHILS # (AUTO) 12.3 x10^3/uL (2.2-4.8); NEUTROPHILS % (AUTO) 97.3 % (42.0-75.0); PLATELET COUNT 206 X10^3/uL (150.0-450.0); RED BLOOD COUNT 5.35 X10^6/uL (3.5-5.4); WHITE BLOOD COUNT 12.6 X10^3/uL (3.6-10.0)
[2024-08-22 09:22] LABS: ALANINE AMINOTRANSFERASE 28 Units/L (12-78); ALBUMIN 2.8 g/dL (3.4-5.0); ALKALINE PHOSPHATASE 69 Units/L (46-116); ASPARTATE AMINO TRANSFERASE 36 Units/L (15-37); BLOOD UREA NITROGEN 7 mg/dL (7-18); CALCIUM 8.9 mg/dL (8.5-10.1); CARBON DIOXIDE 39.7 mmol/L (21-32); CHLORIDE 97 mmol/L (98-107); COR CA(FOR HYPOALB) 9.9 mg/dL (8.5-10.1); CREATININE 0.51 mg/dL (0.55-1.02); GLUCOSE 90 mg/dL (65-99); MAGNESIUM 1.9 mg/dL (2.0-2.9); SODIUM 141 mmol/L (136-145); TOTAL PROTEIN 5.9 g/dL (6.4-8.2); eGFR NON BLACK RACES > 60 (>60)
[2024-08-22 09:47] VITALS: PULSE 82; O2SAT 92
[2024-08-22] MEDS: MAG-OX TAB PO SCH (10:00)
[2024-08-22] MEDS: K-DUR TAB 20 MEQ PO SCH (10:00)
[2024-08-22] MEDS ORDERED: CONSULT PHARMACY - POTASSIUM & MAGNESIUM XX SCH (10:00)
[2024-08-22 10:04] LABS: BAND NEUTROPHILS % 5 % (0-10)
[2024-08-22 10:07] LABS: PLATELET MORPHOLOGY COMMENT NORMAL (NORMAL)
[2024-08-22] MEDS ORDERED: LASIX IVP SCH (15:00)
--- NOTE | 2024-08-23 08:55 | PCM.DCPLAN ---
DISCHARGE SUMMARY Admission Date Date of Admission: 08/14/24 Discharge Date Discharge Date: 08/22/24 Admission Diagnoses (1) Respiratory failure: Status: Acute (2) Community acquired pneumonia: Status: Acute (3) Acute hyponatremia: Status: Resolved (4) Rhabdomyolysis: Status: Resolved (5) COPD exacerbation: Status: Acute Discharge Diagnoses Discharge Diagnosis: Same with addition of Pseudomonas COPD exacerbation and candidal COPD exacerbation along with generalized weakness and septic shock. Discharge Medications Discharge Medications: Home Medication List ferrous fumarate 325 mg (106 mg iron) tablet (Ferretts) 325 mg PO QDAY 08/13/24 [History] Prescriptions: Hospital Course Vital Signs: Vital Signs Temperature 97.7 F Temperature 97.9 F Pulse Rate 88 Pulse Rate 91 Respiratory Rate 17 Respiratory Rate 17 Respiratory Rate 17 Respiratory Rate 16 Respiratory Rate 17 Respiratory Rate 17 Blood Pressure 153/83 Blood Pressure 176/83 O2 Sat by Pulse Oximetry 93 O2 Sat by Pulse Oximetry 95 Latest Lab Results: Laboratory Last Values WBC 10.9 X10^3/uL (3.6-10.0) H 08/21/24 05:32 RBC 4.70 X10^6/uL (3.5-5.4) 08/21/24 05:32 Hgb 14.3 g/dL (12.0-16.0) 08/21/24 05:32 Hct 43.0 % (36.0-47.0) 08/21/24 05:32 MCV 91.4 fL (80.0-100.0) 08/21/24 05:32 MCH 30.4 pg (27.0-34.0) 08/21/24 05:32 MCHC 33.3 g/dL (33.0-35.0) 08/21/24 05:32 RDW 16.2 % (11.6-16.5) 08/21/24 05:32 Plt Count 155 X10^3/uL (150.0-450.0) 08/21/24 05:32 Plt Count Comment Adequate (ADEQUATE) 08/21/24 05:32 MPV 7.2 fL (7.4-11.0) L 08/21/24 05:32 Neut % (Auto) 93.4 % (42.0-75.0) H 08/21/24 05:32 Lymph % (Auto) 1.6 % (21.0-51.0) L 08/21/24 05:32 Liberty % (Auto) 4.5 % (0.0-13.0) 08/21/24 05:32 Eos % (Auto) 0.1 % (0.9-2.9) L 08/21/24 05:32 Baso % (Auto) 0.4 % (0.2-1.0) 08/21/24 05:32 Neut # (Auto) 10.1 x10^3/uL (2.2-4.8) H 08/21/24 05:32 Lymph # (Auto) 0.2 X10^3/uL (1.3-2.9) L 08/21/24 05:32 Liberty # (Auto) 0.5 x10^3/uL (0.3-0.8) 08/21/24 05:32 Eos # (Auto) 0.0 x10^3/uL (0.0-0.2) 08/21/24 05:32 Baso # (Auto) 0.0 X10^3/uL (0.0-0.1) 08/21/24 05:32 Absolute Nucleated RBC 0.1 /100WBC 08/21/24 05:32 Total Counted 100 08/21/24 05:32 Neutrophils % (Manual) 91 % (39-76) H 08/21/24 05:32 Band Neutrophils % 2 % (0-10) 08/17/24 04:04 Lymphocytes % (Manual) 4 % (13-43) L 08/21/24 05:32 Monocytes % (Manual) 5 % (4-9) 08/21/24 05:32 Plt Morphology Comment Normal (NORMAL) 08/21/24 05:32 RBC Morphology Normal (NORMAL) 08/21/24 05:32 Anisocytosis Slight A 08/17/24 04:04 Stomatocytes Xray Tech 08/15/24 04:08 D-Dimer 1.03 ug/ml (0.0-0.57) H 08/13/24 20:15 Sample Site Rr 08/19/24 05:30 ABG pH 7.420 (7.35-7.45) 08/19/24 05:30 ABG pCO2 57.0 mmHg (35.0-45.0) H* 08/19/24 05:30 ABG pO2 59.0 mmHg (80.0-100.0) L 08/19/24 05:30 ABG HCO3 37.0 mmol/L (22-26) H* 08/19/24 05:30 ABG O2 Saturation 91.0 % (90-100) 08/19/24 05:30 ABG Base Excess 10.5 mmol/L (-2.0-2.0) H 08/19/24 05:30 Jacques Test Pos 08/19/24 05:30 A-a Gradient 69.0 mmHg 08/19/24 05:30 FiO2 28.0 08/19/24 05:30 Blood Gas Comments Alie well sw 08/19/24 05:30 Sodium 140 mmol/L (136-145) 08/21/24 05:32 Corrected Sodium 141 mmol/L (136-145) 08/21/24 05:32 Potassium 3.1 mmol/L (3.5-5.1) L 08/21/24 05:32 Chloride 102 mmol/L (98-107) 08/21/24 05:32 Carbon Dioxide 34.2 mmol/L (21-32) H 08/21/24 05:32 BUN 9 mg/dL (7-18) 08/21/24 05:32 Creatinine 0.28 mg/dL (0.55-1.02) L 08/21/24 09:33 Est GFR (MDRD) Af Amer > 60 (>60) 08/21/24 05:32 Est GFR (MDRD) Non-Af > 60 (>60) 08/21/24 05:32 Glucose 125 mg/dL (65-99) H 08/21/24 05:32 POC Glucose (mg/dL) 109 mg/dL (65-99) H 08/14/24 03:52 Calcium 8.6 mg/dL (8.5-10.1) 08/21/24 05:32 Corrected Calcium 10.0 mg/dL (8.5-10.1) 08/21/24 05:32 Magnesium 1.8 mg/dL (2.0-2.9) L 08/21/24 05:32 Total Bilirubin 0.40 mg/dL (0.2-1.0) 08/21/24 05:32 AST 35 Units/L (15-37) 08/21/24 05:32 ALT 21 Units/L (12-78) 08/21/24 05:32 Alkaline Phosphatase 57 Units/L (46-116) 08/21/24 05:32 Creatine Kinase 89 Units/L (26-192) 08/20/24 06:20 Troponin I High Sens 40.9 ng/L (4.0-60.0) 08/21/24 21:09 B-Natriuretic Peptide 359 pg/mL (0-79) H 08/13/24 20:15 Total Protein 5.0 g/dL (6.4-8.2) L 08/21/24 05:32 Albumin 2.3 g/dL (3.4-5.0) L 08/21/24 05:32 Globulin 2.7 g/dL (2.5-4.5) 08/21/24 05:32 Albumin/Globulin Ratio 0.9 Ratio (1.1-2.1) L 08/21/24 05:32 Specimen Type Catherized urine 08/14/24 00:12 Urine Color Pale yellow (YELLOW) 08/14/24 00:12 Urine Appearance Clear (CLEAR) 08/14/24 00:12 Urine pH 6.0 (5.0 - 8.0) 08/14/24 00:12 Ur Specific Tower 1.025 (1.000-1.030) 08/14/24 00:12 Urine Protein 3+ (NEGATIVE) 08/14/24 00:12 Urine Glucose (UA) Negative (NEGATIVE) 08/14/24 00:12 Urine Ketones 2+ (NEGATIVE) 08/14/24 00:12 Urine Blood 5+ (NEGATIVE) 08/14/24 00:12 Urine Nitrite Negative (NEGATIVE) 08/14/24 00:12 Urine Bilirubin Negative (NEGATIVE) 08/14/24 00:12 Urine Urobilinogen Normal (NORMAL) 08/14/24 00:12 Ur Leukocyte Esterase 1+ (NEGATIVE) 08/14/24 00:12 Urine RBC 0-2 /HPF (0-3) 08/14/24 00:12 Urine WBC 0-2 /HPF (0-5) 08/14/24 00:12 Ur Squamous Epith Cells Rare /HPF (NEGATIVE) 08/14/24 00:12 Urine Bacteria Negative /HPF (NEGATIVE) 08/14/24 00:12 Ur Culture Indicated? No/not indicated 08/14/24 00:12 Vancomycin Trough 16.9 ug/mL (15-20) 08/21/24 09:33 SARS-CoV-2 (PCR) Negative (NEGATIVE) 08/13/24 20:09 Influenza Type A (PCR) Negative (NEGATIVE) 08/13/24 20:09 Influenza Type B (PCR) Negative (NEGATIVE) 08/13/24 20:09 RSV (PCR) Negative (NEGATIVE) 08/13/24 20:09 Resp Viral Panel (PCR) See scanned report 08/14/24 05:00 Hospital Course: Patient originally admitted due to COPD exacerbation and started on BiPAP. She was a hypercapnic and hypoxic respiratory failure. Overnight she decompensated with increased work of breathing and was intubated. She remained in the ICU on a vent for approximately 6 days. She did well on her weaning holidays and was successfully extubated on 1 attempt. Patient did become volume overloaded and had to be placed on IV Lasix. Rhabdomyolysis was present on admission but repeat CPK was normal. Patient and family elected to do subacute rehab and show swing bed status. She did not feel stable enough to be able to go home and was having difficulty ambulating without assistance. By the day of discharge she was able to use a walker with assistance to go to the restroom and back to the bed. Cough had improved and was less productive. Overall status was greatly improved and she was discharged to a swing bed status in the same facility.
== END 2024-08-22 10:27 | disposition swing bed (61) | DRG 189 ==
LOC: ER 19:43 → ICU 08-14 04:27 → MED/SURG 08-19 15:14
PROVIDERS: ADMIT Family Medicine; ATTEND Family Medicine
DX: B96.5 Pseudomonas (aeruginosa) (mallei) (pseudomallei) as the cause of diseases classified elsewhere; E87.1 Hypo-osmolality and hyponatremia; R07.89 Other chest pain; F41.8 Other specified anxiety disorders; M62.82 Rhabdomyolysis; R53.1 Weakness; J44.1 Chronic obstructive pulmonary disease with (acute) exacerbation; R94.31 Abnormal electrocardiogram [ECG] [EKG]; E87.3 Alkalosis; B37.89 Other sites of candidiasis; R41.82 Altered mental status, unspecified; I10 Essential (primary) hypertension; J90 Pleural effusion, not elsewhere classified; R26.89 Other abnormalities of gait and mobility; E78.5 Hyperlipidemia, unspecified; K21.9 Gastro-esophageal reflux disease without esophagitis; F32.89 Other specified depressive episodes; R79.1 Abnormal coagulation profile; E83.42 Hypomagnesemia; R00.0 Tachycardia, unspecified; Z03.818 Encounter for observation for suspected exposure to other biological agents ruled out; J96.22 Acute and chronic respiratory failure with hypercapnia; E03.8 Other specified hypothyroidism; J18.8 Other pneumonia, unspecified organism; Z72.0 Tobacco use

== ENCOUNTER 2024-08-22 10:30 | Inpatient (IN) ==
--- NOTE | 2024-08-22 10:56 | PCM.DCPLAN ---
DISCHARGE SUMMARY Admission Date Date of Admission: 08/14/24 Discharge Date Discharge Date: 08/22/24 Admission Diagnoses (1) Pseudomonas aeruginosa infection: Status: Acute (2) Respiratory failure: Status: Acute (3) Community acquired pneumonia: Status: Acute (4) Acute hyponatremia: Status: Acute (5) Rhabdomyolysis: Status: Acute (6) COPD exacerbation: Status: Acute Discharge Medications Discharge Medications: Prescriptions: Hospital Course Vital Signs: Vital Signs Blood Pressure 176/83 Hospital Course: Patient presented to the ER from home with family due to worsening mental status, respiratory status, and weakness. Found to be in a COPD exacerbation and quickly placed on BiPAP. Later that night she was having increased work of breathing and was intubated. She remained intubated for 5 days. She tolerated her weaning trials well and was extubated on day 6 of admission. Weakness improved but remained severe once she was transferred out of the ICU. After discussion with family and case management, she elected to be moved to a swing bed status. She will need to continue antibiotics for Pseudomonas and candidal infections from sputum culture growth. Also blood pressure medications were adjusted due to hypertension. On admission, she had rhabdomyolysis with elevated CPK but that was found to be normal later on. She also was volume overloaded with a 50 pound weight gain since admission that she has responded well to IV Lasix. Discharged to a swing bed status and improving, stable condition.
[2024-08-22] MEDS ORDERED: MORPHINE SULFATE INJ 2 MG INJ IVP PRN (11:06)
[2024-08-22] MEDS ORDERED: NS 250 ML IV 25 ML IV PRN (11:06)
[2024-08-22] MEDS ORDERED: MILK OF MAGNESIA PO PRN (11:06)
[2024-08-22] MEDS: K-DUR TAB 20 MEQ PO SCH (12:37)
[2024-08-22] MEDS: MAG-OX TAB PO SCH (12:37)
[2024-08-22] MEDS: XOPENEX 1.25 MG/3 ML NEBULE NEB SCH (13:07)
[2024-08-22] MEDS: LASIX IVP SCH (13:53)
[2024-08-22] MEDS: ZOSYN VIAL 4.5 GRAMS 4.5 G in NS 100 ML IV 100 ML IV SCH (13:53)
[2024-08-22] MEDS: NS 250 ML IV 250 ML IV PRN (14:00)
[2024-08-22] MEDS: NORCO 5/325 MG TAB PO PRN (14:00)
--- NOTE | 2024-08-22 16:02 | PT/OTEVAL ---
PT/OT OBJECTIVES - HISTORY Prescription: OT Consult Diagnosis: Respiratory failure, community aquired pneumonia Precautions: Fall risk PMH: Gastric ulcers, hypertension, hypothyroidism, respiratory failure, pernicious anemia, community aquired pneumonia, folic acid deficiency, allergic rhinitis Prior Level of Function: Independent Other: Pt report that she lives with her in a one story home. Front entrance has 3 steps with rail on each side, and back entrance has 4 steps with a rail on the R side. Pt reports that she was (I) in ADLs/IADLs prior to hospital stay. No AD or DME at the home. Pt's family drove her majority of the time prior to hospital stay. History of Present Illness: Per documentation, pt came to [facility] with shortness of breath, altered, and lethargic. Admitted to ICU and put on the vent. Once medically stable, she was able to come off the vent. As pt got stronger, pt and family felt that she would need more rehab and was moved to swingbed protocol to improve ability to return home safely. - COGNITION Mental Status: Alert, Oriented, Purpose Communication Status: Verbal Ability to Follow Directions: 3 Step Affect: Calm - PAIN All Extremities Pain Scale: Discomfort Comments: Due to swelling - BED MOBILITY Rolling: Moderate Scooting: Moderate - TRANSFERS Supine to Sit: Moderate Sit to Stand: Moderate Sit or Stand Pivot: Moderate Toileting: Moderate - ADL'S Feeding: Supervision Grooming: Supervision Upper Body ADL: Minimum Lower Body ADL: Moderate Toileting: Maximum Bathing: Maximum Hygeine: Minimum - BALANCE Static Sitting: Good Standing: Fair Dynamic Sitting: Fair Standing: Poor - NEUROMOTOR/SENSATION Miguel. Upper Ext Sensation: WFL Coordination: WFL - ROM Bilateral UE ROM: WFL - STRENGTH Bilateral UE Strength Number: 3 - TREATMENT Date: 08/22/24 Time: 10:30 Treatment Type: Evaluation Treatment Provided: Therapeutic Activities, Other - TOTAL TREATMENT TIME Total Time: 1 hour - POST ASSESSMENT Post Assessment Comment: Pt seen for OT eval to assess CLOF. Pt sitting in recliner upon arrival. Pt edu on safe transfer and the use of adaptive equipment use and the swing bed program. Pt was very tired from gettin gup and using the bathroom eariler and wanted to stay up in recliner. Pt had all needs met and call light within reach. Pt was agreeable to therapy goals and is highly motivated to return to PLOF. Pt will benefit from skilled OT to increase (I) in ADL skills needed for a safe d/c. - EXIT DISPOSITION Exit Position: CHAIR Call light in reach: Yes PT/OT ASSESSMENT - OT Problem List: Decreased Mobility ADL's, Decreased Dressing, Decreased Bathing, Decreased Grooming, Decreased UE Strength - OT GOALS Residential Goals Days: 20 Mobility for ADL's: Pt will complete functional ADL t/f with Mod(I). Dressing: Pt will complete UB dressing with SBA to increase (I) with ADLs. Bathing: Pt will bathe UB and LB with SBA for safety. Grooming: Pt will complete grooming tasks (I) to return to PLOF. Upper Ext. Strength/Use: Pt will increase UE MMT by 1 grade to facilitate (I) in ADLs. Short Term Goals Days: 10 Mobility for ADL's: Pt will complete functional ADL t/f with Jose. Dressing: Pt will complete LB dressing using AD as needed with SBA. Bathing: Pt will bathe UB with Jose for increased (I) with ADLs. Grooming: Pt will complete grooming tasks with CGA to return to PLOF. Upper Ext. Strength/Use: Pt will increase UE MMT by 1/2 grade to facilitate (I) in ADLs. Other: Pt will increase activity tolerance by participating in task for 15 min. - PATIENT GOALS Patient/Family Goals: Pt wishes to return home Goals Discussed with Patient/Family: Yes Rehabilitation Potential: Good Justification for Potential: To improve ADL skills and strength needed for safe d/c back to her home - PLAN Suggested Treatment Plan: Therapeutic Activity, Self Care Training, Neuro Re- education, Therapeutic Ex with HEP, Patient Education, Family Education - FREQUENCY AND DURATION OT: 5x/week x 20 days Expected Continuation of Care at Discharge: Home Health
--- NOTE | 2024-08-22 16:24 | PT/OTEVAL ---
PT/OT OBJECTIVES - HISTORY Prescription: PT Consult Diagnosis: Pneumonia Precautions: Fall Risk, Respiratory, Droplet Precautions PMH: Anemia, Anxiety, COPD, Depression, Dyslipidemia, Migraines, GERD, HTN, Hypothyroidism, PUD, Vitamin D Deficiency, IBS, Osteoporosis, Hysterectomy, Hemorrhoidectomy, Oophorectomy, Gastrectomy Prior Level of Function: Independent Other: Pt resides with in single story home with 4 steps to enter with BHR. PLOF: Independent with mobility tasks within home without a device. states that he assists pt in and out of the shower, up and down the sta irs and in and out of car. Reports having no DME at home. does report that pt had a fall ~6 months ago and had whiplash and since then has been having ongoing neck pain and headaches. History of Present Illness: Mrs. Boyle is a 73 year old female who presented to [facility] on 08/14/2024 and found to be in respiratory failure and required mechanical ventilator. Once stabilized, pt was weaned from ventilator and noted with increased weakness from PLOF and was deemed appropriate for swing bed rehabiliation program to which she was transitioned to on the morning of 08/22/2024. - COGNITION Mental Status: Alert, Oriented, Name, Date, Place, Purpose Communication Status: Verbal Ability to Follow Directions: 2 Step - PAIN Generalized Pain Scale: Moderate Comments: Generalized full body discomfort (d/t prolonged bed rest and swelling) - BED MOBILITY Rolling: Supervision - TRANSFERS Supine to Sit: Supervision, Minimal Supine Comment: Touch assist Sit to Stand: Supervision, Minimal Sit to Stand Comment: Touch assist Sit or Stand Pivot: Supervision, Minimal Sit or Stand Pivot Comment: Touch assist Safety (requires cues for:): Hand Placement Precaution - BALANCE Static Sitting: Good Standing: Fair Balance Comment: Fair- Dynamic Sitting: Good Standing: Poor - NEUROMOTOR/SENSATION Miguel. Lower Ext Sensation: WFL Coordination: WFL Proprioception: WFL - STRENGTH Bilateral LE Strength Number: 3 Other comment: 3+/5 - GAIT Pt. ambulates how many feet?: 10 Amount of Assistance Required: Minimal Type of Assistive Device: Rolling Walker Comments: Increased time due to weakness and fatigue - TREATMENT Date: 08/22/24 Time: 12:30 Treatment Type: Evaluation Treatment Provided: Therapeutic Activities - TOTAL TREATMENT TIME Total Time: 30 - POST ASSESSMENT Post Assessment Comment: Pt was found in room and agreeable to evaluation. Explained goals and benefit of participation in swing bed program. Pt supervision to touch assist for mobility tasks with use of FWW- easily fatigues and requires frequent therapeutic rest breaks. Pt on 3LO2 via nasal cannula. Noted with BUE/BLE weeping edema- pt instructed in elevation and completing ankle pumps to assist as able to with swelling. Pt is motivated to participate and would benefit from continued PT services to address deficits and facilitate highest level of function and safe discharge planning. - EXIT DISPOSITION Exit Position: CHAIR Call light in reach: Yes PT/OT ASSESSMENT - PT Problem List: Decreased Bed Mobility, Decreased Transfers, Decreased Gait, Decreased Balance, Decreased LE Strength - OT Problem List: Other - PT GOALS Short Term Goals Days: 10 Mobility: Pt will perform bed mobility tasks with mod I Transfers: Pt will perform functional transfers with mod I Gait: Pt will ambulate 200ft with FWW with supervision Balance: Pt will increase static standing balnace to good [facility] Goals Days: 20 Gait: Pt will ambulate 400ft with LRAD and mod I Balance: Pt will increase dynamic standing balance to fair+/good- ROM/Strength: Pt will increase BLE strength to 5/5 Others: Pt will ascend/descend 4 stairs with HR and touch assist - OT GOALS Hadoop Engineer Goals Days: 20 Mobility for ADL's: Pt will complete functional ADL t/f with Mod(I). Safety Awareness: Pt will Dressing: Pt will complete UB dressing with SBA to increase (I) with ADLs. Bathing: Pt will bathe UB and LB with SBA for safety. Grooming: Pt will complete grooming tasks (I) to return to PLOF. Upper Ext. Strength/Use: Pt will increase UE MMT by 1 grade to facilitate (I) in ADLs. Short Term Goals Days: 10 Mobility for ADL's: Pt will complete functional ADL t/f with Jose. Dressing: Pt will complete LB dressing using AD as needed with SBA. Bathing: Pt will bathe UB with Jose for increased (I) with ADLs. Grooming: Pt will complete grooming tasks with CGA to return to PLOF. Upper Ext. Strength/Use: Pt will increase UE MMT by 1/2 grade to facilitate (I) in ADLs. Other: Pt will increase activity tolerance by participating in task for 15 min. - PATIENT GOALS Patient/Family Goals: "I want to get my strength back so I can go home" Goals Discussed with Patient/Family: Yes Rehabilitation Potential: Good to meet stated goals Justification for Potential: Facilitate highest level of function and safe discharge planning Weakness and Barriers: None - PLAN Suggested Treatment Plan: Bed Mobility Training, Therapeutic Activity, Gait Training, Neuro Re-education, Therapeutic Ex with HEP, Patient Education, Family Education - FREQUENCY AND DURATION PT: 5x per week x 20 days Expected Continuation of Care at Discharge: Home Health Anticipated Equipment Needs: TBD pending progress with therapy.
[2024-08-22] MEDS ORDERED: NS 1,000 ML IV 1,000 ML ONE (18:46)
[2024-08-22] MEDS: NS 1,000 ML IV 1,000 ML IV SCH (18:49)
[2024-08-22] MEDS: PULMICORT NEB TX 0.5 MG NEB SCH (20:22)
[2024-08-22] MEDS: VANCOMYCIN HCL 1 G in D5W 250 ML IV 250 ML IV SCH (21:43)
[2024-08-22] MEDS: COZAAR PO SCH (21:44)
[2024-08-22] MEDS: NORVASC TAB 5 MG PO SCH (21:44)
[2024-08-22] MEDS: CHECK PATCH XX SCH (22:00)
[2024-08-23] MEDS: ALBUMIN HUMAN 25%- 100 ML 100 ML IV ONE (08:44)
[2024-08-23] MEDS: CIPRO TAB 500 MG PO SCH (08:45)
[2024-08-23] MEDS: NICOTINE PATCH TD SCH (08:46)
[2024-08-23] MEDS: PREDNISONE TAB 20 MG PO SCH (08:50)
[2024-08-23] MEDS: LOVENOX INJ 40 MG SYR SC SCH (08:50)
[2024-08-23] MEDS: DIFLUCAN PO SCH (08:50)
[2024-08-23] MEDS: SYNTHROID 50 mcg TAB PO SCH (08:50)
--- NOTE | 2024-08-23 08:50 | DR.H&P ---
H&P History & Physical for Day of: H&P Date: 08/23/24 Chief Complaint Chief Complaint: Weakness/COPD History of Present Illness History of Present Illness: Presented here in a severe COPD exacerbation with hypoxemic/hypercapnic respiratory failure. Intubated overnight and in ICU for 6 days. Successfully extubated and now in swing-bed status for rehab. Edema is steadily improving, cough is improving, energy levels slowly improving. No acute events overnight since transfer to swing bed status. ROS: 12 point ROS otherwise negative except as noted in HPI. PE: Well-developed, well-nourished, thin female in no acute distress. Head NCAT, EOMI, hearing intact to conversation. Heart regular rate and rhythm. Lungs diminished but clear today. Speech is strong. Belly is soft and nontender with bowel sounds present. Arms have no visual or palpable edema but legs are still 2+ pitting from the knees down. Extremity edema is greatly improved over the last 3 days. Mood and affect are also improved. Able to move all extremities fairly well. Past Medical History Past Medical History: Anemia, Anxiety, COPD, Depression, Dyslipidemia, Migraines, GERD, Hypertension, Hypothyroidism and PUD Past Surgical History Surgical History: Hysterectomy Family History Family Medical History: Cancer and IA Social History Does patient currently use any type of tobacco product: No Type of Tobacco Use: Cigarettes How many years tobacco product used: 50 Alcohol Use: None Drug Use: None Medications Home Medications: Home Medications Medication Instructions Recorded Confirmed Type ferrous fumarate 325 mg (106 mg 325 mg PO QDAY 5 08/22/24 History iron) tablet (Ferretts) Allergies Allergies Allergy/AdvReac Type Severity Reaction Status Date / Time phenobarbital AdvReac Intermediate RASH Verified 08/13/24 20:35 Assessment/Plan (1) Pseudomonas aeruginosa infection: Narrative Support Text: Switch to p.o. Cipro. Switch to p.o. fluconazole. Status: Acute (2) Respiratory failure: Qualifiers: Chronicity: acute Respiratory failure complication: hypoxia and hypercapnia Qualified Code(s): J96.01 - Acute respiratory failure with hypoxia; J96.02 - Acute respiratory failure with hypercapnia Narrative Support Text: Continue O2 supplementation. Status: Acute (3) Community acquired pneumonia: Qualifiers: Laterality: unspecified laterality Qualified Code(s): J18.9 - Pneumonia, unspecified organism Narrative Support Text: Pseudomonas and maryan. Status: Acute (4) Acute hyponatremia: Narrative Support Text: Monitor labs routinely. Status: Resolved (5) Rhabdomyolysis: Qualifiers: Rhabdomyolysis type: non-traumatic Qualified Code(s): M62.82 - Rhabdomyolysis Narrative Support Text: Stay hydrated. Albumin for support today Status: Resolved (6) COPD exacerbation: Narrative Support Text: Continue nebs. Continue prednisone p.o. Status: Acute (7) Volume overload: Qualifiers: Hypervolemia type: other Qualified Code(s): E87.79 - Other fluid overload Narrative Support Text: Improving. Continue Lasix. Status: Acute (8) Generalized weakness: Narrative Support Text: PT and OT as able. Likely a combination of critical care deconditioning, critical Kehler myopathy/neuropathy, rhabdomyolysis, and sepsis. Status: Acute
[2024-08-23] MEDS: COLACE CAP 100 MG PO SCH (21:22)
[2024-08-24 05:49] LABS: BASOPHILS % (AUTO) 0.1 % (0.2-1.0); EOSINOPHILS # (AUTO) 0.1 x10^3/uL (0.0-0.2); EOSINOPHILS % (AUTO) 1.1 % (0.9-2.9); HEMOGLOBIN 12.5 g/dL (12.0-16.0); LYMPHOCYTES # (AUTO) 0.6 X10^3/uL (1.3-2.9); LYMPHOCYTES % (AUTO) 8.2 % (21.0-51.0); MEAN CORPUSCULAR HEMOGLOBIN 30.2 pg (27.0-34.0); MEAN CORPUSCULAR HGB CONC 32.9 g/dL (33.0-35.0); MEAN CORPUSCULAR VOLUME 91.8 fL (80.0-100.0); MEAN PLATELET VOLUME 8.3 fL (7.4-11.0); MONOCYTES # (AUTO) 0.7 x10^3/uL (0.3-0.8); MONOCYTES % (AUTO) 9.2 % (0.0-13.0); NEUTROPHILS % (AUTO) 81.4 % (42.0-75.0); PLATELET COUNT 146 X10^3/uL (150.0-450.0); RED BLOOD COUNT 4.13 X10^6/uL (3.5-5.4); RED CELL DISTRIBUTION WIDTH 16.2 % (11.6-16.5); WHITE BLOOD COUNT 7.4 X10^3/uL (3.6-10.0)
[2024-08-24 05:58] LABS: ALANINE AMINOTRANSFERASE 20 Units/L (12-78); ALBUMIN 2.4 g/dL (3.4-5.0); ALKALINE PHOSPHATASE 47 Units/L (46-116); ASPARTATE AMINO TRANSFERASE 26 Units/L (15-37); BLOOD UREA NITROGEN 6 mg/dL (7-18); CALCIUM 8.6 mg/dL (8.5-10.1); CARBON DIOXIDE 38.2 mmol/L (21-32); CHLORIDE 98 mmol/L (98-107); COR CA(FOR HYPOALB) 9.9 mg/dL (8.5-10.1); CREATININE 0.48 mg/dL (0.55-1.02); GLUCOSE 82 mg/dL (65-99); SODIUM 140 mmol/L (136-145); eGFR NON BLACK RACES > 60 (>60)
[2024-08-24 06:06] LABS: PLATELET MORPHOLOGY COMMENT NORMAL (NORMAL)
[2024-08-24] MEDS ORDERED: CONSULT PHARMACY - POTASSIUM & MAGNESIUM XX SCH (07:00)
[2024-08-24] MEDS: ALDACTONE TAB 25 MG PO SCH (09:44)
[2024-08-24] MEDS: K-DUR TAB 20 MEQ PO SCH (09:44)
[2024-08-25 05:41] LABS: POTASSIUM 3.7 mmol/L (3.5-5.1)
[2024-08-25 06:10] LABS: BASOPHILS % (AUTO) 0.3 % (0.2-1.0); EOSINOPHILS # (AUTO) 0.1 x10^3/uL (0.0-0.2); EOSINOPHILS % (AUTO) 0.9 % (0.9-2.9); HEMATOCRIT 40.9 % (36.0-47.0); HEMOGLOBIN 13.4 g/dL (12.0-16.0); LYMPHOCYTES # (AUTO) 0.6 X10^3/uL (1.3-2.9); LYMPHOCYTES % (AUTO) 8.8 % (21.0-51.0); MEAN CORPUSCULAR HEMOGLOBIN 29.9 pg (27.0-34.0); MEAN CORPUSCULAR HGB CONC 32.6 g/dL (33.0-35.0); MEAN CORPUSCULAR VOLUME 91.7 fL (80.0-100.0); MEAN PLATELET VOLUME 7.4 fL (7.4-11.0); MONOCYTES # (AUTO) 0.5 x10^3/uL (0.3-0.8); MONOCYTES % (AUTO) 8.3 % (0.0-13.0); NEUTROPHILS # (AUTO) 5.3 x10^3/uL (2.2-4.8); NEUTROPHILS % (AUTO) 81.7 % (42.0-75.0); PLATELET COUNT 211 X10^3/uL (150.0-450.0); RED BLOOD COUNT 4.47 X10^6/uL (3.5-5.4); RED CELL DISTRIBUTION WIDTH 16.1 % (11.6-16.5); WHITE BLOOD COUNT 6.5 X10^3/uL (3.6-10.0)
[2024-08-25 06:19] LABS: ALANINE AMINOTRANSFERASE 25 Units/L (12-78); ALKALINE PHOSPHATASE 59 Units/L (46-116); ASPARTATE AMINO TRANSFERASE 31 Units/L (15-37); BLOOD UREA NITROGEN 7 mg/dL (7-18); CARBON DIOXIDE 41.4 mmol/L (21-32); CHLORIDE 98 mmol/L (98-107); COR CA(FOR HYPOALB) 9.8 mg/dL (8.5-10.1); CREATININE 0.57 mg/dL (0.55-1.02); GLUCOSE 78 mg/dL (65-99); POTASSIUM 3.7 mmol/L (3.5-5.1); SODIUM 138 mmol/L (136-145); TOTAL PROTEIN 5.9 g/dL (6.4-8.2); eGFR NON BLACK RACES > 60 (>60)
[2024-08-25] MEDS ORDERED: CONSULT PHARMACY - POTASSIUM & MAGNESIUM XX SCH (07:00)
[2024-08-25] MEDS: K-DUR TAB 20 MEQ PO ONE (08:49)
--- NOTE | 2024-08-26 05:55 | RAD ---
PROCEDURE: Chest X-ray 2 Views. HISTORY: Pleural effusion and ascites. TECHNIQUE: PA and lateral views. COMPARISON: 08/20/2024. TECHNICAL QUALITY: Satisfactory. FINDINGS: Micro cardia related to emphysema. Mediastinum and hilar regions show no masses or lymphadenopathy. Normal central vascularity. Bilateral pleural effusions at the bases. No consolidation. Emphysema with hyperexpansion and hyperlucency. No acute bony abnormality. IMPRESSION: 1. COPD. 2. Small bilateral pleural effusions that have improved since previous study. THIS IS AN ELECTRONICALLY VERIFIED FINAL REPORT 08/26/2024 5:52 AM - Electronically signed by Grayson Laird MD
--- NOTE | 2024-08-26 10:06 | NOTE.SOAP ---
Soap Note Note for Day of Date of Exam: 08/26/24 Subjective Data Subjective Data: Doing well on swing bed status. Seen for morning rounds with charge nurse. Tolerating regular diet, ambulate about room with little assistance, has been ambulate in around the nurses station with therapy. She is doing well with a four-legged walker. Blood pressure is staying elevated. Objective Data Objective Data: Well-developed, well-nourished female in no acute distress. She is wearing a nasal cannula. Speech is clear and unlabored. Lung sounds diminished but good air movement. Heart regular rate and rhythm. Mood and affect are appropriate. Edema of the legs is almost fully resolved and has completely resolved of the upper extremities. Assessment Assessment: 1. Acute hypoxemic and hypercapnic respiratory failure, resolving. Continue O2 supplementation. 2. COPD exacerbation, resolving. Continue nebs and O2 supplementation. 3. Benign essential hypertension, chronic. Further adjustments. 4. Generalized weakness, acute. Improving. Continue therapy.
[2024-08-27] MEDS: LASIX PO SCH (11:18)
[2024-08-28] MEDS: COLACE CAP 100 MG PO PRN (20:40)
[2024-08-29 05:58] LABS: BASOPHILS % (AUTO) 0.6 % (0.2-1.0); EOSINOPHILS % (AUTO) 0.5 % (0.9-2.9); HEMATOCRIT 35.3 % (36.0-47.0); HEMOGLOBIN 11.6 g/dL (12.0-16.0); LYMPHOCYTES # (AUTO) 0.6 X10^3/uL (1.3-2.9); LYMPHOCYTES % (AUTO) 13.5 % (21.0-51.0); MEAN CORPUSCULAR HEMOGLOBIN 30.4 pg (27.0-34.0); MEAN CORPUSCULAR HGB CONC 32.8 g/dL (33.0-35.0); MEAN CORPUSCULAR VOLUME 92.6 fL (80.0-100.0); MEAN PLATELET VOLUME 7.8 fL (7.4-11.0); MONOCYTES # (AUTO) 0.4 x10^3/uL (0.3-0.8); NEUTROPHILS # (AUTO) 3.3 x10^3/uL (2.2-4.8); NEUTROPHILS % (AUTO) 76.4 % (42.0-75.0); PLATELET COUNT 156 X10^3/uL (150.0-450.0); RED BLOOD COUNT 3.81 X10^6/uL (3.5-5.4); RED CELL DISTRIBUTION WIDTH 16.2 % (11.6-16.5); WHITE BLOOD COUNT 4.3 X10^3/uL (3.6-10.0)
[2024-08-29 06:06] LABS: ALANINE AMINOTRANSFERASE 24 Units/L (12-78); ALBUMIN 2.7 g/dL (3.4-5.0); ALKALINE PHOSPHATASE 55 Units/L (46-116); ASPARTATE AMINO TRANSFERASE 20 Units/L (15-37); BLOOD UREA NITROGEN 10 mg/dL (7-18); CALCIUM 8.2 mg/dL (8.5-10.1); CARBON DIOXIDE 33.1 mmol/L (21-32); CHLORIDE 103 mmol/L (98-107); COR CA(FOR HYPOALB) 9.2 mg/dL (8.5-10.1); CREATININE 0.37 mg/dL (0.55-1.02); GLUCOSE 91 mg/dL (65-99); SODIUM 141 mmol/L (136-145); TOTAL PROTEIN 5.5 g/dL (6.4-8.2); eGFR NON BLACK RACES > 60 (>60)
[2024-08-29 06:17] LABS: POTASSIUM 2.9 mmol/L (3.5-5.1)
[2024-08-29] MEDS ORDERED: CONSULT PHARMACY - POTASSIUM & MAGNESIUM XX SCH (07:00)
[2024-08-29] MEDS: K-DUR TAB 20 MEQ PO SCH (09:20)
--- NOTE | 2024-08-29 09:21 | NOTE.SOAP ---
Soap Note Note for Day of Date of Exam: 08/29/24 Subjective Data Subjective Data: No acute events over the weekend. Still participating in rehab. Able to ambulate more without a walker. Still requiring O2 supplementation. Was able to stand up in the shower yesterday to bathe. Has been currently admitted. Objective Data Objective Data: Well-developed, thin female in no acute distress. Hearing intact to conversation, head NCAT, EOMI. Heart regular rate and rhythm. Lungs diminished with coarse breath sounds but no wheezing. Speech is strong and clear. Belly is soft and nontender with bowel sounds present. All extremities with no edema. Assessment Assessment: 1. Acute hypoxemic respiratory failure. 2. COPD exacerbation. 3. Benign essential hypertension. 4. Generalized weakness. Plan Plan: Continue current. Continue rehab. Patient is benefiting. Consider discharge later this week. Will need to go home with either her daughter or her if he is able.
[2024-08-30 06:00] LABS: MAGNESIUM 1.9 mg/dL (2.0-2.9); POTASSIUM 3.4 mmol/L (3.5-5.1)
[2024-08-30] MEDS ORDERED: CONSULT PHARMACY - POTASSIUM & MAGNESIUM XX SCH (07:00)
[2024-08-30] MEDS: MAG-OX TAB PO SCH (09:05)
[2024-08-30] MEDS: K-DUR TAB 20 MEQ PO SCH (09:05)
[2024-08-30] MEDS: NORCO 5/325 MG TAB PO PRN (21:37)
[2024-08-31 06:20] LABS: BASOPHILS # (AUTO) 0.1 X10^3/uL (0.0-0.1); BASOPHILS % (AUTO) 3.4 % (0.2-1.0); EOSINOPHILS % (AUTO) 0.4 % (0.9-2.9); HEMATOCRIT 35.6 % (36.0-47.0); HEMOGLOBIN 11.7 g/dL (12.0-16.0); LYMPHOCYTES # (AUTO) 0.8 X10^3/uL (1.3-2.9); LYMPHOCYTES % (AUTO) 18.5 % (21.0-51.0); MEAN CORPUSCULAR HEMOGLOBIN 30.2 pg (27.0-34.0); MEAN CORPUSCULAR HGB CONC 32.9 g/dL (33.0-35.0); MEAN PLATELET VOLUME 7.5 fL (7.4-11.0); MONOCYTES # (AUTO) 0.3 x10^3/uL (0.3-0.8); MONOCYTES % (AUTO) 6.5 % (0.0-13.0); NEUTROPHILS % (AUTO) 71.2 % (42.0-75.0); PLATELET COUNT 154 X10^3/uL (150.0-450.0); RED BLOOD COUNT 3.87 X10^6/uL (3.5-5.4); RED CELL DISTRIBUTION WIDTH 16.8 % (11.6-16.5); WHITE BLOOD COUNT 4.1 X10^3/uL (3.6-10.0)
[2024-08-31 06:24] LABS: ALANINE AMINOTRANSFERASE 24 Units/L (12-78); ALBUMIN 2.8 g/dL (3.4-5.0); ALKALINE PHOSPHATASE 60 Units/L (46-116); ASPARTATE AMINO TRANSFERASE 23 Units/L (15-37); BLOOD UREA NITROGEN 11 mg/dL (7-18); CALCIUM 8.3 mg/dL (8.5-10.1); CARBON DIOXIDE 32.7 mmol/L (21-32); CHLORIDE 104 mmol/L (98-107); COR CA(FOR HYPOALB) 9.3 mg/dL (8.5-10.1); CREATININE 0.43 mg/dL (0.55-1.02); GLUCOSE 80 mg/dL (65-99); POTASSIUM 3.7 mmol/L (3.5-5.1); SODIUM 142 mmol/L (136-145); TOTAL PROTEIN 6.5 g/dL (6.4-8.2); eGFR NON BLACK RACES > 60 (>60)
[2024-08-31 08:22] VITALS: BMI 17.6
[2024-08-31] MEDS: DECADRON INJ IM ONE (09:00)
[2024-08-31] MEDS: TORADOL TAB PO PRN (11:21)
--- NOTE | 2024-08-31 17:07 | NOTE.SOAP ---
Soap Note Note for Day of Date of Exam: 08/31/24 Subjective Data Subjective Data: Having the left medial ankle pain. Started doing steps yesterday with therapy. Denies any slips, trips, or falls. Some pain relief with hydrocodone. Was swollen yesterday but not this morning. Otherwise doing well. Still requiring O2 Objective Data Objective Data: Thin, elderly female in no acute distress. Hearing intact conversation, head NCAT. Heart regular rate and rhythm. Lungs are diminished with faint rhonchi bilaterally. Tender at the distal, medial, posterior malleolus and the soft tis abbey. Assessment Assessment: 1. Left ankle pain, acute. 2. COPD exacerbation. 3. Acute hypoxemic respiratory failure. Plan Plan: Continue PT and OT. Toradol p.o. with 1 dose of IM Decadron today. Will need home O2.
[2024-09-01 07:39] VITALS: BP 156/76; PULSE 87; TEMP 97.6; O2SAT 98
[2024-09-01 08:15] VITALS: RESP 20
--- NOTE | 2024-09-01 11:16 | VAS ---
EXAM: LOWER EXT VENOUS, UNILATERAL HISTORY: PAIN TO LEFT LEG; COMPARISON: None available. TECHNIQUE: Multiple menezes scale and color flow Doppler images of the deep venous system were obtained of the left lower extremity. FINDINGS: The deep venous system of the left lower extremity was evaluated from the level of the common femoral vein through the popliteal vein. Normal color flow and augmentation can be observed. In addition, normal compression is seen throughout the deep venous system. IMPRESSION: Negative for DVT. THIS IS AN ELECTRONICALLY VERIFIED FINAL REPORT 09/01/2024 11:13 AM - Electronically signed by Lloyd Gannon MD
--- NOTE | 2024-09-01 12:21 | PCM.DCPLAN ---
DISCHARGE SUMMARY Admission Date Date of Admission: 08/22/24 Discharge Date Discharge Date: 09/01/24 Admission Diagnoses (1) Pseudomonas aeruginosa infection: Status: Acute (2) Respiratory failure: Status: Acute (3) Community acquired pneumonia: Status: Acute (4) Acute hyponatremia: Status: Resolved (5) Rhabdomyolysis: Status: Resolved (6) COPD exacerbation: Status: Acute (7) Volume overload: Status: Acute (8) Generalized weakness: Status: Acute Discharge Medications Discharge Medications: Prescriptions: Hospital Course Vital Signs: Vital Signs Temperature 97.6 F Pulse Rate [Left Radial] 87 Respiratory Rate 20 Respiratory Rate 19 Respiratory Rate 18 Respiratory Rate 18 Respiratory Rate 18 Blood Pressure [Left Arm] 156/76 O2 Sat by Pulse Oximetry 98 O2 Sat by Pulse Oximetry 98 Latest Lab Results: Laboratory Last Values WBC 4.1 X10^3/uL (3.6-10.0) 08/31/24 05:16 RBC 3.87 X10^6/uL (3.5-5.4) 08/31/24 05:16 Hgb 11.7 g/dL (12.0-16.0) L 08/31/24 05:16 Hct 35.6 % (36.0-47.0) L 08/31/24 05:16 MCV 92.0 fL (80.0-100.0) 08/31/24 05:16 MCH 30.2 pg (27.0-34.0) 08/31/24 05:16 MCHC 32.9 g/dL (33.0-35.0) L 08/31/24 05:16 RDW 16.8 % (11.6-16.5) H 08/31/24 05:16 Plt Count 154 X10^3/uL (150.0-450.0) 08/31/24 05:16 Plt Count Comment Decreased (ADEQUATE) A 08/24/24 05:23 MPV 7.5 fL (7.4-11.0) 08/31/24 05:16 Neut % (Auto) 71.2 % (42.0-75.0) 08/31/24 05:16 Lymph % (Auto) 18.5 % (21.0-51.0) L 08/31/24 05:16 [place] % (Auto) 6.5 % (0.0-13.0) 08/31/24 05:16 Eos % (Auto) 0.4 % (0.9-2.9) L 08/31/24 05:16 Baso % (Auto) 3.4 % (0.2-1.0) H 08/31/24 05:16 Neut # (Auto) 3.0 x10^3/uL (2.2-4.8) 08/31/24 05:16 Lymph # (Auto) 0.8 X10^3/uL (1.3-2.9) L 08/31/24 05:16 [place] # (Auto) 0.3 x10^3/uL (0.3-0.8) 08/31/24 05:16 Eos # (Auto) 0.0 x10^3/uL (0.0-0.2) 08/31/24 05:16 Baso # (Auto) 0.1 X10^3/uL (0.0-0.1) 08/31/24 05:16 Absolute Nucleated RBC 0.1 /100WBC 08/31/24 05:16 Total Counted 100 08/24/24 05:23 Neutrophils % (Manual) 83 % (39-76) H 08/24/24 05:23 Lymphocytes % (Manual) 9 % (13-43) L 08/24/24 05:23 Monocytes % (Manual) 8 % (4-9) 08/24/24 05:23 Plt Morphology Comment Normal (NORMAL) 08/24/24 05:23 RBC Morphology Normal (NORMAL) 08/24/24 05:23 Sodium 142 mmol/L (136-145) 08/31/24 05:16 Corrected Sodium TNP 08/31/24 05:16 Potassium 3.7 mmol/L (3.5-5.1) 08/31/24 05:16 Chloride 104 mmol/L (98-107) 08/31/24 05:16 Carbon Dioxide 32.7 mmol/L (21-32) H 08/31/24 05:16 BUN 11 mg/dL (7-18) 08/31/24 05:16 Creatinine 0.43 mg/dL (0.55-1.02) L 08/31/24 05:16 Est GFR (MDRD) Af Amer > 60 (>60) 08/31/24 05:16 Est GFR (MDRD) Non-Af > 60 (>60) 08/31/24 05:16 Glucose 80 mg/dL (65-99) 08/31/24 05:16 Calcium 8.3 mg/dL (8.5-10.1) L 08/31/24 05:16 Corrected Calcium 9.3 mg/dL (8.5-10.1) 08/31/24 05:16 Magnesium 2.0 mg/dL (2.0-2.9) 08/31/24 05:16 Total Bilirubin 0.30 mg/dL (0.2-1.0) 08/31/24 05:16 AST 23 Units/L (15-37) 08/31/24 05:16 ALT 24 Units/L (12-78) 08/31/24 05:16 Alkaline Phosphatase 60 Units/L (46-116) 08/31/24 05:16 Total Protein 6.5 g/dL (6.4-8.2) 08/31/24 05:16 Albumin 2.8 g/dL (3.4-5.0) L 08/31/24 05:16 Globulin 3.7 g/dL (2.5-4.5) 08/31/24 05:16 Albumin/Globulin Ratio 0.8 Ratio (1.1-2.1) L 08/31/24 05:16 Hospital Course: Patient presented to the ER from home with family due to worsening mental status, respiratory status, and weakness. Found to be in a COPD exacerbation and quickly placed on BiPAP. Later that night she was having increased work of breathing and was intubated. She remained intubated for 5 days. She tolerated her weaning trials well and was extubated on day 6 of admission. Weakness improved but remained severe once she was transferred out of the ICU. After discussion with family and case management, she elected to be moved to a swing bed status. She will need to continue antibiotics for Pseudomonas and candidal infections from sputum culture growth. Also blood pressure medications were adjusted due to hypertension. On admission, she had rhabdomyolysis with elevated CPK but that was found to be normal later on. She also was volume overloaded with a 50 pound weight gain since admission that she has responded well to IV Lasix. Discharged to a swing bed status and improving, stable condition. Above from discharge summary from hospitalization. Patient did well during swing bed status. She will be discharged with home O2, home health services, pain medication due to continued muscle aches from rhabdo, and new prescription for Trelegy high-dose due to her COPD, and has completed steroids and antibiotics. Some blood pressure medications were changed and she will continue losartan, amlodipine, and spironolactone. Will monitor Coreg closely given her COPD. Follow-up with PCP next week.
== END 2024-09-01 16:00 | disposition home health service (06) | DRG 193 ==
LOC: MED/SURG 10:30
PROVIDERS: ADMIT Family Medicine; ATTEND Family Medicine
DX: F41.8 Other specified anxiety disorders; E78.5 Hyperlipidemia, unspecified; B96.5 Pseudomonas (aeruginosa) (mallei) (pseudomallei) as the cause of diseases classified elsewhere; M25.572 Pain in left ankle and joints of left foot; M62.82 Rhabdomyolysis; J96.01 Acute respiratory failure with hypoxia; J96.02 Acute respiratory failure with hypercapnia; J44.1 Chronic obstructive pulmonary disease with (acute) exacerbation; E03.8 Other specified hypothyroidism; E87.1 Hypo-osmolality and hyponatremia; J18.8 Other pneumonia, unspecified organism; E87.70 Fluid overload, unspecified; R53.1 Weakness; E87.6 Hypokalemia; Z51.89 Encounter for other specified aftercare; E83.42 Hypomagnesemia; K21.9 Gastro-esophageal reflux disease without esophagitis; I10 Essential (primary) hypertension; Z59.86 Financial insecurity